=== PATIENT | male | born 1940 | race Caucasian/White ===

== ENCOUNTER 2018-09-29 06:27 | Inpatient (IN) | payer MEDICARE, OTHER ==
[2018-09-29 06:28] VITALS: BMI 26.6
[2018-09-29] MEDS ORDERED: Sodium Chloride 0.9% 1,000 ML IV STA ×2 (07:28→09:21)
--- NOTE | 2018-09-29 07:31 | ED PDOC ---
HPI: SOB/CHF/COPD Time Seen by Provider: 09/29/18 07:08 Chief Complaint (Nursing): Fever Chief Complaint (Provider): shortness of breath History Per: Family History/Exam Limitations: clinical condition (nonverbal s/p CVA) Current Symptoms Are (Timing): Still Present Additional Complaint(s): 78 year old male with past history of Parkinson's disease, hypertension, and CVA, arrives to the emergency department via ambulance with his for an evaluation of shortness of breath. History is limited as patient is nonverbal status post CVA. His states that the patient appeared to be short of breath this morning, thus, prompting visit. Patient is bed-bound at baseline with left- sided paralysis and decubitus ulcer that is currently treated at a wound clinic. Otherwise, no reports of cough or hemoptysis. Of note, patient's states that the patient has an unknown code and pending her son's call for any decisions. Additionally, patient has an indwelling kwan catheter in place. PCP: Dr. Fatuma Christina Past Medical History Reviewed: Historical Data, Nursing Documentation, Vital Signs Vital Signs: Last Vital Signs Temp 101.3 F H 09/29/18 06:39 Pulse 154 H 09/29/18 06:39 Resp 27 H 09/29/18 06:39 BP 83/47 L 09/29/18 06:39 Pulse Ox 93 L 09/29/18 06:39 - Medical History PMH: CVA (Left sided), HTN, Hyperlipidemia, Parkinson's Disease Denies: Chronic Kidney Disease - Family History Family History: States: Unknown Family Hx - Social History Current smoker - smoking cessation education provided: No Alcohol: None Drugs: Denies - Immunization History Hx Tetanus Toxoid Vaccination: No Hx Influenza Vaccination: No Hx Pneumococcal Vaccination: Yes - Home Medications Home Medications: Ambulatory Orders Medication Instructions Recorded Carbidopa/Levodopa 1 tab PO TID 04/16/16 [Carbidopa-Levodopa 25-100 Tab] Escitalopram [Lexapro] 10 mg PO DAILY 04/16/16 Ferrous Sulfate 1 tab PO BID 04/16/16 Metoprolol Succinate [Metoprolol 100 mg PO DAILY 04/16/16 Succinate Xl] Ranitidine HCl 150 mg PO BID 04/16/16 Atorvastatin [Lipitor] 20 mg PO DAILY 09/29/18 Clopidogrel Bisulfate [Plavix] 75 mg PO DAILY 09/29/18 Losartan/Hydrochlorothiazide 100 mg PO DAILY 09/29/18 [Losartan-Hctz 100-12.5 mg Tab] Vancomycin HCl 125 mg PO DAILY 09/29/18 - Allergies Allergies/Adverse Reactions: Allergies Allergy/AdvReac Type Severity Reaction Status Date / Time aspirin Allergy RASH Verified 09/29/18 06:39 Review of Systems ROS Statement: Except As Marked, All Systems Reviewed And Found Negative Constitutional: Positive for: Fever Respiratory: Positive for: Shortness of Breath. Negative for: Cough, Hemoptysis Skin: Positive for: Other (decubitus ulcer) Neurological: Positive for: Weakness (left-sided paralysis) Physical Exam - Reviewed Nursing Documentation Reviewed: Yes Vital Signs Reviewed: Yes - Physical Exam Appears: Positive for: No Acute Distress. Negative for: Well (chronically ill) Head Exam: Positive for: ATRAUMATIC, NORMAL INSPECTION, NORMOCEPHALIC Skin: Positive for: Warm, Dry Eye Exam: Positive for: Normal appearance, EOMI, PERRL ENT: Positive for: Other (dry mucous membranes) Neck: Positive for: Normal, Painless ROM, Supple Cardiovascular/Chest: Positive for: Tachycardia (but regular). Negative for: Regular Rate, Rhythm Respiratory: Positive for: Decreased Breath Sounds (coarse). Negative for: Respiratory Distress Pulses-Radial (L): 3+/4+ Pulses-Radial (R): 3+/4+ Gastrointestinal/Abdominal: Positive for: Normal Exam, Soft Back: Positive for: Other (large sacral unstageable pressure ulcer, approximately 30cm in diameter, without bleeding or discharge) Neurologic/Psych: Positive for: Motor/Sensory Deficits (left-sided paralysis), Facial Droop (left-sided), Other (bed-bound at baseline; easily arousable). Negative for: Alert (x2), Oriented (x3), Aphasia - Laboratory Results Result Diagrams: 09/29/18 07:30 09/29/18 07:30 - ECG O2 Sat by Pulse Oximetry: 93 (RA) Pulse Ox Interpretation: Normal - Critical Care Total Time (In Min): 60 Documented Critical Care: Time excludes all time spent performint seperately billable procedures Medical Decision Making Medical Decision Making: Initial Impression: Dyspnea; Fever Differential diagnosis: aspiration pneumonia; UTI; sepsis shock Initial Plan: * Labs * EKG * IV fluids * CXR * Blood/urine/wound culture Time: 734 --Code sepsis initiated. Vanc IV and Zosyn IV ordered. IVF 2 L IVF bolus 30cc/kg/ over 30 min was not given due to advanced age, unknown cardiac function, and since patient may wish comfort care. upon discussion with the there is no directive and she believes patient would prefer to be DNR /DNI but there is no final decision at this time. Patient is currently not hypotensive after IVF and there are no indications for central line. Time: 819 --UA reviewed: (+) blood and leukocytes. Time: 829 --Case discussed with Sammy Fitzgerald APN, who accepts patient for admission under [facility]. Bite Block Maker paged for ICU admission. Time: 846 --Dr. Sibley made aware of case and is agreeable to admission plan. -- Scribe Attestation: Documented by Kassandra Elder, acting as a scribe for Cecilia Cruz MD. Provider Scribe Attestation: All medical record entries made by the Scribe were at my direction and personally dictated by me. I have reviewed the chart and agree that the record accurately reflects my personal performance of the history, physical exam, medical decision making, and the department course for this patient. I have also personally directed, reviewed, and agree with the discharge instructions and disposition. Disposition - Clinical Impression Clinical Impression: Fever in adult, Decubital ulcer, Sepsis, UTI (urinary tract infection), Severe sepsis, Septic shock - Patient ED Disposition Is Patient to be Admitted: No Doctor Will See Patient In The: Office Counseled Patient/Family Regarding: Studies Performed, Diagnosis, Need For Followup - Disposition Disposition Time: 08:00 Condition: CRITICAL - Pt Status Changed To: Hospital Disposition Of: Inpatient - Admit Certification Admit to Inpatient:: After my assessment, the patient will require hospitalization for at least two midnights. This is because of the severity of symptoms shown, intensity of services needed, and/or the medical risk in this patient being treated as an outpatient. - POA Present On Arrival: Pressure Ulcer Core Measure Indicators: Code Sepsis
[2018-09-29 07:35] LABS: VENOUS BLOOD GAS BASE EXCESS -8.6 mmol/L (0.0-2.0); VENOUS BLOOD GAS PCO2 51 mmHg (40-60); VENOUS BLOOD GAS PO2 23 mm/Hg (30-55); VENOUS BLOOD PH 7.19 (7.32-7.43)
[2018-09-29] MEDS ORDERED: Piperacillin/Tazobact 3.375 GM in Sodium Chloride 0.9% 100 ML IVPB STA (07:36)
[2018-09-29] MEDS ORDERED: Vancomycin 1 g Inj ONE (07:40)
[2018-09-29] MEDS ORDERED: Piperacillin/Tazobact 3.375 gm Inj IVPB ONE (07:40)
[2018-09-29 07:57] LABS: ABG ALLEN TEST YES; ARTERIAL BLOOD GAS HCO3 17.2 mmol/L (21-28); ARTERIAL BLOOD GAS HEMOGLOBIN 9.6 g/dL (11.7-17.4); ARTERIAL BLOOD GAS O2 CAPACITY 13.3 mL/dL (16-24); ARTERIAL BLOOD GAS O2 CONTENT 13.2 ML/dL (15-23); ARTERIAL BLOOD GAS O2 SAT 99.2 % (95-98); ARTERIAL BLOOD GAS PCO2 17 mm/Hg (35-45); ARTERIAL BLOOD GAS PH 7.46 (7.35-7.45); ARTERIAL BLOOD GAS PO2 94 mm/Hg (80-100); ARTERIAL BLOOD GAS TCO2 12.6 mmol/L (22-28)
[2018-09-29 08:03] LABS: BASO % 0.2 % (0.0-2.0); EOS % 0.1 % (0.0-4.0); HEMOGLOBIN 9.7 g/dL (12.0-18.0); LYMPH # 0.5 K/uL (1.0-4.3); LYMPH % 8.9 % (20.0-40.0); MEAN CELL VOLUME 93.4 fl (80.0-94.0); MEAN CORPUSCULAR HEMOGLOBIN 28.8 pg (27.0-31.0); MEAN CORPUSCULAR HGB CONC 30.8 g/dL (33.0-37.0); MEAN PLATELET VOLUME 8.7 fl (7.2-11.7); MONO % 0.7 % (0.0-10.0); NEUT # 5.5 K/uL (1.8-7.0); NEUT % 90.1 % (50.0-75.0); PLATELET COUNT 347 K/uL (130-400); RBC 3.35 Mil/uL (4.40-5.90); RED CELL DISTRIBUTION WIDTH 16.1 % (11.5-14.5); WHITE BLOOD COUNT 6.2 K/uL (4.8-10.8)
[2018-09-29 08:07] LABS: INR 1.4; PROTHROMBIN TIME 15.7 Seconds (9.8-13.1)
[2018-09-29 08:09] LABS: ALB/GLOB RATIO 0.6 (1.0-2.1); ALBUMIN 2.4 g/dL (3.5-5.0); ALT/SGPT 574 U/L (21-72); BLOOD UREA NITROGEN 21 mg/dl (9-20); CALCIUM 8.2 mg/dL (8.4-10.2); GFR NON-AFRICAN AMERICAN > 60
[2018-09-29 08:10] LABS: PARTIAL THROMBOPLASTIN TIME 29.6 Seconds (25.6-37.1)
[2018-09-29 08:38] LABS: URINE BACTERIA MANY (<OCC); URINE BILIRUBIN NEGATIVE (NEGATIVE); URINE BLOOD MODERATE (NEGATIVE); URINE CLARITY TURBID (Clear); URINE COLOR AMBER (YELLOW); URINE GLUCOSE (UA) NEG (NEGATIVE); URINE LEUKOCYTE ESTERASE LARGE Leu/uL (Negative); URINE PROTEIN 30 mg/dL (NEGATIVE); URINE UROBILINOGEN 0.2-1.0 mg/dL (0.2-1.0)
[2018-09-29 08:47] LABS: AST/SGOT 2258 U/L (17-59)
[2018-09-29 10:59] LABS: BANDS 18 % (0-2); LYMPHOCYTE 15 % (20-50); MONOCYTE 1 % (0-10); MYELOCYTE 1 % (0-0); NEUTROPHIL 65 % (42-75); PLATELET ESTIMATE NORMAL (NORMAL); TOTAL CELLS COUNTED 100
[2018-09-29 11:00] LABS: ANISOCYTOSIS SLIGHT; GIANT PLATELETS PRESENT; HYPOCHROMIC SLIGHT; PLATELET CLUMPS PRESENT; POLYCHROMIC SLIGHT; TOXIC GRANULATION PRESENT
--- NOTE | 2018-09-29 11:06 | CP.PCM.HP ---
History of Present Illness - History of Present Illness History of Present Illness: pt admitted for sepsis/septic shock. not able to provide hx, at bedside providing all info. bw noted. pt w/ sacral decub stage 3-4. has permenant kwan in place left hemiparesis from old cva consults and c/s pending. Present on Admission - Present on Admission Any Indicators Present on Admission: Yes Decubitus Ulcer Location: sacrum Decubitus Ulcer Stage: III Review of Systems - Review of Systems Systems not reviewed;Unavailable: Dementia - Constitutional Constitutional: As Per HPI, Fever - Cardiovascular Cardiovascular: As Per HPI, Rapid Heart Rate Past Patient History - Past Medical History & Family History Past Medical History?: Yes - Past Social History Alcohol: None Drugs: Denies - CARDIAC Hx Hypertension: Yes - PULMONARY Hx Respiratory Disorders: No - NEUROLOGICAL Hx Parkinson's Disease: Yes - HEENT Hx HEENT Problems: No - RENAL Hx Chronic Kidney Disease: No - ENDOCRINE/METABOLIC Hx Endocrine Disorders: No - HEMATOLOGICAL/ONCOLOGICAL Hx Blood Disorders: No - INTEGUMENTARY Hx Dermatological Problems: No - MUSCULOSKELETAL/RHEUMATOLOGICAL Hx Musculoskeletal Disorders: Yes - GASTROINTESTINAL Hx Gastrointestinal Disorders: No - GENITOURINARY/GYNECOLOGICAL Hx Incontinence: Yes - PSYCHIATRIC Hx Substance Use: No - SURGICAL HISTORY Hx Surgeries: Yes Hx Herniorrhaphy: Yes (bilateral) - ANESTHESIA Hx Anesthesia: Yes Hx Anesthesia Reactions: No Hx Malignant Hyperthermia: No Meds Allergies/Adverse Reactions: Allergies Allergy/AdvReac Type Severity Reaction Status Date / Time aspirin Allergy RASH Verified 09/29/18 06:39 Physical Exam - Constitutional Appears: No Acute Distress, Chronically Ill - Head Exam Head Exam: ATRAUMATIC, NORMAL INSPECTION, NORMOCEPHALIC - Eye Exam Eye Exam: EOMI, Normal appearance, PERRL Pupil Exam: NORMAL ACCOMODATION, PERRL - ENT Exam ENT Exam: Mucous Membranes Moist, Normal Exam - Neck Exam Neck exam: Positive for: Normal Inspection - Respiratory Exam Respiratory Exam: Clear to Auscultation Bilateral, NORMAL BREATHING PATTERN - Cardiovascular Exam Cardiovascular Exam: Tachycardia, REGULAR RHYTHM, RRR, +S1, +S2 - GI/Abdominal Exam GI & Abdominal Exam: Normal Bowel Sounds, Soft. absent: Tenderness - Extremities Exam Extremities exam: Positive for: full ROM, normal capillary refill, normal inspection, pedal pulses present - Back Exam Back exam: NORMAL INSPECTION - Neurological Exam Neurological exam: Abnormal Gait, CN II-XII Intact, Reflexes Normal - Psychiatric Exam Psychiatric exam: Normal Affect, Normal Mood - Skin Skin Exam: Dry, Intact, Normal Color, Warm Results - Vital Signs Recent Vital Signs: Last Vital Signs Temp 99.9 F H 09/29/18 10:33 Pulse 106 H 09/29/18 10:33 Resp 19 09/29/18 10:33 BP 83/58 L 09/29/18 10:33 Pulse Ox 100 09/29/18 10:33 - Labs Result Diagrams: 09/30/18 05:00 09/30/18 05:00 Labs: Laboratory Results - last 24 hr 09/29/18 09/29/18 09/29/18 07:27 07:28 07:30 WBC 6.2 RBC 3.35 L Hgb 9.7 L Hct 31.3 L MCV 93.4 MCH 28.8 MCHC 30.8 L RDW 16.1 H Plt Count 347 MPV 8.7 Neut % (Auto) 90.1 H Lymph % (Auto) 8.9 L Morrill % (Auto) 0.7 Eos % (Auto) 0.1 Baso % (Auto) 0.2 Neut # (Auto) 5.5 Lymph # (Auto) 0.5 L [place] # (Auto) 0.0 Eos # (Auto) 0.0 Baso # (Auto) 0.0 Neutrophils % (Manual) 65 Band Neutrophils % 18 H* Lymphocytes % (Manual) 15 L Monocytes % (Manual) 1 Myelocytes % 1 H Toxic Granulation Present Platelet Estimate Normal Plt Clumps, EDTA Present Giant Platelets Present Polychromasia Slight Hypochromasia (manual) Slight Anisocytosis (manual) Slight PT INR APTT pCO2 17 L* pO2 94 23 L HCO3 17.2 L ABG pH 7.46 H ABG Total CO2 12.6 L ABG O2 Saturation 99.2 H ABG O2 Content 13.2 L ABG Base Excess -9.9 L ABG Hemoglobin 9.6 L ABG Carboxyhemoglobin 0.6 POC ABG HHb (Measured) 0.8 ABG Methemoglobin 2.2 ABG O2 Capacity 13.3 L Flo Test Yes VBG pH 7.19 L* VBG pCO2 51 VBG HCO3 16.7 VBG Total CO2 21.1 L VBG O2 Sat (Calc) 27.6 L VBG Base Excess -8.6 L VBG Potassium 4.2 A-a O2 Difference 99.0 Hgb O2 Saturation 96.4 Sodium 145.0 Chloride 110.0 H Glucose 97 Lactate 10.5 H* FiO2 30.0 21.0 Crit Value Called To Dr amish almonte Crit Value Called By 15 15 Crit Value Read Back Y Y Blood Gas Notified Time 756 732 Potassium Carbon Dioxide Anion Gap BUN Creatinine Est GFR ( Amer) Est GFR (Non-Af Amer) Random Glucose Calcium Phosphorus Magnesium Total Bilirubin AST ALT Alkaline Phosphatase Total Protein Albumin Globulin Albumin/Globulin Ratio Venous Blood Potassium 4.2 Urine Color Urine Clarity Urine pH Ur Specific [place] Urine Protein Urine Glucose (UA) Urine Ketones Urine Blood Urine Nitrate Urine Bilirubin Urine Urobilinogen Ur Leukocyte Esterase Urine RBC (Auto) Urine Microscopic WBC Urine Bacteria Influenza Typ A,B (EIA) 09/29/18 09/29/18 09/29/18 07:30 07:30 08:20 WBC RBC Hgb Hct MCV MCH MCHC RDW Plt Count MPV Neut % (Auto) Lymph % (Auto) [place] % (Auto) Eos % (Auto) Baso % (Auto) Neut # (Auto) Lymph # (Auto) [place] # (Auto) Eos # (Auto) Baso # (Auto) Neutrophils % (Manual) Band Neutrophils % Lymphocytes % (Manual) Monocytes % (Manual) Myelocytes % Toxic Granulation Platelet Estimate Plt Clumps, EDTA Giant Platelets Polychromasia Hypochromasia (manual) Anisocytosis (manual) PT 15.7 H INR 1.4 APTT 29.6 pCO2 pO2 HCO3 ABG pH ABG Total CO2 ABG O2 Saturation ABG O2 Content ABG Base Excess ABG Hemoglobin ABG Carboxyhemoglobin POC ABG HHb (Measured) ABG Methemoglobin ABG O2 Capacity Flo Test VBG pH VBG pCO2 VBG HCO3 VBG Total CO2 VBG O2 Sat (Calc) VBG Base Excess VBG Potassium A-a O2 Difference Hgb O2 Saturation Sodium 143 Chloride 113 H Glucose Lactate FiO2 Crit Value Called To Crit Value Called By Crit Value Read Back Blood Gas Notified Time Potassium 4.1 Carbon Dioxide 18 L Anion Gap 16 BUN 21 H Creatinine 1.1 Est GFR ( Amer) > 60 Est GFR (Non-Af Amer) > 60 Random Glucose 93 Calcium 8.2 L Phosphorus 3.3 Magnesium 2.2 Total Bilirubin 0.6 AST 2258 H ALT 574 H Alkaline Phosphatase 346 H Total Protein 6.5 Albumin 2.4 L Globulin 4.1 H Albumin/Globulin Ratio 0.6 L Venous Blood Potassium Urine Color Karen Urine Clarity Turbid Urine pH 7.0 Ur Specific [place] 1.017 Urine Protein 30 Urine Glucose (UA) Neg Urine Ketones Negative Urine Blood Moderate Urine Nitrate Negative Urine Bilirubin Negative Urine Urobilinogen 0.2-1.0 Ur Leukocyte Esterase Large Urine RBC (Auto) 240 H Urine Microscopic WBC 1728 H Urine Bacteria Many H Influenza Typ A,B (EIA) 09/29/18 08:20 WBC RBC Hgb Hct MCV MCH MCHC RDW Plt Count MPV Neut % (Auto) Lymph % (Auto) [place] % (Auto) Eos % (Auto) Baso % (Auto) Neut # (Auto) Lymph # (Auto) [place] # (Auto) Eos # (Auto) Baso # (Auto) Neutrophils % (Manual) Band Neutrophils % Lymphocytes % (Manual) Monocytes % (Manual) Myelocytes % Toxic Granulation Platelet Estimate Plt Clumps, EDTA Giant Platelets Polychromasia Hypochromasia (manual) Anisocytosis (manual) PT INR APTT pCO2 pO2 HCO3 ABG pH ABG Total CO2 ABG O2 Saturation ABG O2 Content ABG Base Excess ABG Hemoglobin ABG Carboxyhemoglobin POC ABG HHb (Measured) ABG Methemoglobin ABG O2 Capacity Flo Test VBG pH VBG pCO2 VBG HCO3 VBG Total CO2 VBG O2 Sat (Calc) VBG Base Excess VBG Potassium A-a O2 Difference Hgb O2 Saturation Sodium Chloride Glucose Lactate FiO2 Crit Value Called To Crit Value Called By Crit Value Read Back Blood Gas Notified Time Potassium Carbon Dioxide Anion Gap BUN Creatinine Est GFR ( Amer) Est GFR (Non-Af Amer) Random Glucose Calcium Phosphorus Magnesium Total Bilirubin AST ALT Alkaline Phosphatase Total Protein Albumin Globulin Albumin/Globulin Ratio Venous Blood Potassium Urine Color Urine Clarity Urine pH Ur Specific [place] Urine Protein Urine Glucose (UA) Urine Ketones Urine Blood Urine Nitrate Urine Bilirubin Urine Urobilinogen Ur Leukocyte Esterase Urine RBC (Auto) Urine Microscopic WBC Urine Bacteria Influenza Typ A,B (EIA) Negative for flu a/b Assessment & Plan (1) Decubital ulcer Assessment and Plan: surgical debridement 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 urine source zosyn, vanco ID procalcitonin vbg Status: Acute (3) DVT prophylaxis Assessment and Plan: scd nad ae hose heparin Status: Acute (4) CVA (cerebral vascular accident) Assessment and Plan: old. deficit noted pt/ot Status: Acute (5) Parkinson disease Assessment and Plan: cont homemeds Status: Acute (6) Septic shock Assessment and Plan: icu care pressors prn id fluid resus Status: Acute Priority: High (7) UTI (urinary tract infection) Assessment and Plan: zosyn vanco change kwan follow c/s Status: Acute Priority: High Decision To Admit - Pt Status Changed To: Hospital Disposition Of: Inpatient - Admit Certification Admit to Inpatient:: After my assessment, the patient will require hospitalization for at least two midnights. This is because of the severity of symptoms shown, intensity of services needed, and/or the medical risk in this patient being treated as an outpatient. - . Bed Request Type: Intensive Care Admitting Physician: Chris Wiggins
--- NOTE | 2018-09-29 13:33 | CP.PCM.CON ---
History of Present Illness - History of Present Illness History of Present Illness: General Surgery Consult Note for Dr. Downey This is a 78M who is completely dependent he presented from home due to change in mental status, he was found to have a recently debrided sacral ulcer and laboratory evidence of a UTI, with bandemia, and a lactate of 10, along with hypotension. OUr service was consulted for central line placement for pressor support. Patient is averbal history was obtained from other providers. PMH: CVS, HTN, HLD, Parkinsons PSH: Sacral wound debridment (possible others unknown) All: ASA Review of Systems - Review of Systems Systems not reviewed;Unavailable: Acuity of Condition, Altered Mental Status Past Patient History - Past Medical History & Family History Past Medical History?: Yes - Past Social History Alcohol: None Drugs: Denies - CARDIAC Hx Hypertension: Yes - PULMONARY Hx Respiratory Disorders: No - NEUROLOGICAL Hx Parkinson's Disease: Yes - HEENT Hx HEENT Problems: No - RENAL Hx Chronic Kidney Disease: No - ENDOCRINE/METABOLIC Hx Endocrine Disorders: No - HEMATOLOGICAL/ONCOLOGICAL Hx Blood Disorders: No - INTEGUMENTARY Hx Dermatological Problems: No - MUSCULOSKELETAL/RHEUMATOLOGICAL Hx Musculoskeletal Disorders: Yes - GASTROINTESTINAL Hx Gastrointestinal Disorders: No - GENITOURINARY/GYNECOLOGICAL Hx Incontinence: Yes - PSYCHIATRIC Hx Substance Use: No - SURGICAL HISTORY Hx Surgeries: Yes Hx Herniorrhaphy: Yes (bilateral) - ANESTHESIA Hx Anesthesia: Yes Hx Anesthesia Reactions: No Hx Malignant Hyperthermia: No Meds Allergies/Adverse Reactions: Allergies Allergy/AdvReac Type Severity Reaction Status Date / Time aspirin Allergy RASH Verified 09/29/18 06:39 - Medications Medications: Current Medications Atorvastatin Calcium (Lipitor) 20 mg PO DAILY [facility] Carbidopa/Levodopa (Sinemet) 1 tab PO TID [facility] Clopidogrel Bisulfate (Plavix) 75 mg PO DAILY [facility] Escitalopram Oxalate (Lexapro) 10 mg PO DAILY [facility] Famotidine (Pepcid) 20 mg PO BID SAI Ferrous Sulfate (Feosol) 325 mg PO BID [facility] Physical Exam - Constitutional Appears: Cachectic, Chronically Ill - Neck Exam Neck exam: Positive for: Normal Inspection - Respiratory Exam Respiratory Exam: NORMAL BREATHING PATTERN - Cardiovascular Exam Cardiovascular Exam: Tachycardia Results - Vital Signs Recent Vital Signs: Last Vital Signs Temp 99.9 F H 09/29/18 10:33 Pulse 106 H 09/29/18 10:33 Resp 19 09/29/18 10:33 BP 83/58 L 09/29/18 10:33 Pulse Ox 93 L 09/29/18 12:01 - Labs Result Diagrams: 09/29/18 07:30 09/29/18 07:30 Labs: Laboratory Results - last 24 hr 09/29/18 09/29/18 09/29/18 07:27 07:28 07:30 WBC 6.2 RBC 3.35 L Hgb 9.7 L Hct 31.3 L MCV 93.4 MCH 28.8 MCHC 30.8 L RDW 16.1 H Plt Count 347 MPV 8.7 Neut % (Auto) 90.1 H Lymph % (Auto) 8.9 L [place] % (Auto) 0.7 Eos % (Auto) 0.1 Baso % (Auto) 0.2 Neut # (Auto) 5.5 Lymph # (Auto) 0.5 L [place] # (Auto) 0.0 Eos # (Auto) 0.0 Baso # (Auto) 0.0 Neutrophils % (Manual) 65 Band Neutrophils % 18 H* Lymphocytes % (Manual) 15 L Monocytes % (Manual) 1 Myelocytes % 1 H Toxic Granulation Present Platelet Estimate Normal Plt Clumps, EDTA Present Giant Platelets Present Polychromasia Slight Hypochromasia (manual) Slight Anisocytosis (manual) Slight PT INR APTT pCO2 17 L* pO2 94 23 L HCO3 17.2 L ABG pH 7.46 H ABG Total CO2 12.6 L ABG O2 Saturation 99.2 H ABG O2 Content 13.2 L ABG Base Excess -9.9 L ABG Hemoglobin 9.6 L ABG Carboxyhemoglobin 0.6 POC ABG HHb (Measured) 0.8 ABG Methemoglobin 2.2 ABG O2 Capacity 13.3 L Flo Test Yes VBG pH 7.19 L* VBG pCO2 51 VBG HCO3 16.7 VBG Total CO2 21.1 L VBG O2 Sat (Calc) 27.6 L VBG Base Excess -8.6 L VBG Potassium 4.2 A-a O2 Difference 99.0 Hgb O2 Saturation 96.4 Sodium 145.0 Chloride 110.0 H Glucose 97 Lactate 10.5 H* FiO2 30.0 21.0 Crit Value Called To Dr amish almonte Crit Value Called By 15 15 Crit Value Read Back Y Y Blood Gas Notified Time 756 732 Potassium Carbon Dioxide Anion Gap BUN Creatinine Est GFR ( Amer) Est GFR (Non-Af Amer) Random Glucose Calcium Phosphorus Magnesium Total Bilirubin AST ALT Alkaline Phosphatase Total Protein Albumin Globulin Albumin/Globulin Ratio Venous Blood Potassium 4.2 Urine Color Urine Clarity Urine pH Ur Specific [place] Urine Protein Urine Glucose (UA) Urine Ketones Urine Blood Urine Nitrate Urine Bilirubin Urine Urobilinogen Ur Leukocyte Esterase Urine RBC (Auto) Urine Microscopic WBC Urine Bacteria Influenza Typ A,B (EIA) 09/29/18 09/29/18 09/29/18 07:30 07:30 08:20 WBC RBC Hgb Hct MCV MCH MCHC RDW Plt Count MPV Neut % (Auto) Lymph % (Auto) [place] % (Auto) Eos % (Auto) Baso % (Auto) Neut # (Auto) Lymph # (Auto) [place] # (Auto) Eos # (Auto) Baso # (Auto) Neutrophils % (Manual) Band Neutrophils % Lymphocytes % (Manual) Monocytes % (Manual) Myelocytes % Toxic Granulation Platelet Estimate Plt Clumps, EDTA Giant Platelets Polychromasia Hypochromasia (manual) Anisocytosis (manual) PT 15.7 H INR 1.4 APTT 29.6 pCO2 pO2 HCO3 ABG pH ABG Total CO2 ABG O2 Saturation ABG O2 Content ABG Base Excess ABG Hemoglobin ABG Carboxyhemoglobin POC ABG HHb (Measured) ABG Methemoglobin ABG O2 Capacity Flo Test VBG pH VBG pCO2 VBG HCO3 VBG Total CO2 VBG O2 Sat (Calc) VBG Base Excess VBG Potassium A-a O2 Difference Hgb O2 Saturation Sodium 143 Chloride 113 H Glucose Lactate FiO2 Crit Value Called To Crit Value Called By Crit Value Read Back Blood Gas Notified Time Potassium 4.1 Carbon Dioxide 18 L Anion Gap 16 BUN 21 H Creatinine 1.1 Est GFR ( Amer) > 60 Est GFR (Non-Af Amer) > 60 Random Glucose 93 Calcium 8.2 L Phosphorus 3.3 Magnesium 2.2 Total Bilirubin 0.6 AST 2258 H ALT 574 H Alkaline Phosphatase 346 H Total Protein 6.5 Albumin 2.4 L Globulin 4.1 H Albumin/Globulin Ratio 0.6 L Venous Blood Potassium Urine Color Karen Urine Clarity Turbid Urine pH 7.0 Ur Specific [place] 1.017 Urine Protein 30 Urine Glucose (UA) Neg Urine Ketones Negative Urine Blood Moderate Urine Nitrate Negative Urine Bilirubin Negative Urine Urobilinogen 0.2-1.0 Ur Leukocyte Esterase Large Urine RBC (Auto) 240 H Urine Microscopic WBC 1728 H Urine Bacteria Many H Influenza Typ A,B (EIA) 09/29/18 08:20 WBC RBC Hgb Hct MCV MCH MCHC RDW Plt Count MPV Neut % (Auto) Lymph % (Auto) [place] % (Auto) Eos % (Auto) Baso % (Auto) Neut # (Auto) Lymph # (Auto) [place] # (Auto) Eos # (Auto) Baso # (Auto) Neutrophils % (Manual) Band Neutrophils % Lymphocytes % (Manual) Monocytes % (Manual) Myelocytes % Toxic Granulation Platelet Estimate Plt Clumps, EDTA Giant Platelets Polychromasia Hypochromasia (manual) Anisocytosis (manual) PT INR APTT pCO2 pO2 HCO3 ABG pH ABG Total CO2 ABG O2 Saturation ABG O2 Content ABG Base Excess ABG Hemoglobin ABG Carboxyhemoglobin POC ABG HHb (Measured) ABG Methemoglobin ABG O2 Capacity Flo Test VBG pH VBG pCO2 VBG HCO3 VBG Total CO2 VBG O2 Sat (Calc) VBG Base Excess VBG Potassium A-a O2 Difference Hgb O2 Saturation Sodium Chloride Glucose Lactate FiO2 Crit Value Called To Crit Value Called By Crit Value Read Back Blood Gas Notified Time Potassium Carbon Dioxide Anion Gap BUN Creatinine Est GFR ( Amer) Est GFR (Non-Af Amer) Random Glucose Calcium Phosphorus Magnesium Total Bilirubin AST ALT Alkaline Phosphatase Total Protein Albumin Globulin Albumin/Globulin Ratio Venous Blood Potassium Urine Color Urine Clarity Urine pH Ur Specific [place] Urine Protein Urine Glucose (UA) Urine Ketones Urine Blood Urine Nitrate Urine Bilirubin Urine Urobilinogen Ur Leukocyte Esterase Urine RBC (Auto) Urine Microscopic WBC Urine Bacteria Influenza Typ A,B (EIA) Negative for flu a/b Assessment & Plan - Assessment and Plan (Free Text) Assessment: 78M in septic shock Bedside central line placement Discussed with Dr. Downey Central Line Placement - Central Line Placement Central Line Placement: Left: Internal Jugular The Area Was Thoroughly Prepared With: Chlorhexidine Area Was Locally Anesthetized With: Lidocaine 1% Procedure: Triple Lumen
--- NOTE | 2018-09-29 13:37 | PCM.PROC ---
Procedures Attestation:: I certify that I have explained the specified Operation(s) or Procedure(s), risks, benefits and reasonable alternatives to the Patient and/or other person responsible. The opportunity was given to ask questions and all questions answered - Central Line Placement Left Internal Jugular Triple Lumen Catheter Aseptic technique was employed throughout the procedure: Hand Hygiene done prior to procedure, Full sterile barriers (mask, hair cover, sterile gown, sterile g loves), Chloraprep Antiseptic: 30 second prep for IJ or SC sites Central Line Prep: Chlorhexidine-Alcohol Combination Local Anesthesia Used: Lidocaine 1% Ultrasound Used for Placement: Yes Central Line Lumen Inserted: triple Central Line Length: 20 cm Post Procedure: Sutured in Place, Good Blood Return, All Ports Aspirated, Flushed, Capped, Sterile Dressing Applied Secured by: Suture Post Procedure X-Ray: Yes Patient Tolerated Procedure: Well
[2018-09-29 13:38] LABS: VENOUS BLOOD GAS BASE EXCESS -5.1 mmol/L (0.0-2.0); VENOUS BLOOD GAS PCO2 21 mmHg (40-60); VENOUS BLOOD GAS PO2 43 mm/Hg (30-55); VENOUS BLOOD PH 7.49 (7.32-7.43)
--- NOTE | 2018-09-29 15:08 | RAD ---
Date of service: 09/29/2018 HISTORY: Sepsis Patient COMPARISON: Chest radiographs 01/18/2010. FINDINGS: LUNGS: Patient remains rotated significantly toward the right. No interval consolidation bilaterally. PLEURA: No significant pleural effusion identified, no pneumothorax apparent. CARDIOVASCULAR: No aortic atherosclerotic calcification present. Normal cardiac size. No pulmonary vascular congestion. OSSEOUS STRUCTURES: No significant abnormalities. VISUALIZED UPPER ABDOMEN: Stable elevated left hemidiaphragm noted. OTHER FINDINGS: None. IMPRESSION: No interval acute cardiopulmonary disease appreciated. Stable elevated left hemidiaphragm.
--- NOTE | 2018-09-29 16:35 | CARD ---
APPROVED REPORT Date of service: 09/29/2018 EKG Measurement Heart [id number] <Conclusion> Sinus tachycardia with short MS with premature supraventricular complexes Nonspecific ST and T wave abnormality Abnormal ECG
--- NOTE | 2018-09-29 16:41 | RAD ---
Date of service: 09/29/2018 HISTORY: r/o pneumothorax post central line insertion COMPARISON: September 29, 2018 Time of the most recent examination: 08:04. FINDINGS: LUNGS: No active pulmonary disease. PLEURA: No significant pleural effusion identified, no pneumothorax apparent. CARDIOVASCULAR: No atherosclerotic calcification present Satisfactory position of recently placed central line inserted via left internal jugular approach. Catheter tip in the SVC. OSSEOUS STRUCTURES: No significant abnormalities. VISUALIZED UPPER ABDOMEN: Normal. OTHER FINDINGS: None. IMPRESSION: Satisfactory position of recently placed central line. No pneumothorax.
--- NOTE | 2018-09-29 17:22 | CP.PCM.CON ---
History of Present Illness - History of Present Illness History of Present Illness: 78 year old male with past history of Parkinson's disease, hypertension, and CVA admitted to ICU with sepsis and septic shock from infected wounds at home Patient is bed-bound at baseline with left-sided paralysis and decubitus ulcer that is currently treated at a wound clinic. . Additionally, patient has an indwelling kwan catheter in place. - Medical History PMH: CVA (Left sided), HTN, Hyperlipidemia, Parkinson's Disease Denies: Chronic Kidney Disease Review of Systems - Review of Systems All systems: reviewed and no additional remarkable complaints except - Constitutional Constitutional: As Per HPI - EENT Eyes: absent: As Per HPI, Blind Spots, Blurred Vision, Change in Vision, Decreased Night Vision, Diplopia, Discharge, Dry Eye, Exophthalmos, Floaters, Irritation, Itchy Eyes, Loss of Peripheral Vision, Pain, Photophobia, Requires Corrective Lenses, Sees Flashes, Spots in Vision, Tunnel Vision, Other Visual Disturbances, Loss of Vision, Other Ears: absent: As Per HPI, Decreased Hearing, Ear Discharge, Ear Pain, Tinnitus, Abnormal Hearing, Disequilibrium, Dizziness, Other Nose/Mouth/Throat: absent: As Per HPI, Epistaxis, Nasal Congestion, Nasal Discharge, Nasal Obstruction, Nasal Trauma, Nose Pain, Post Nasal Drip, Sinus Pain, Sinus Pressure, Bleeding Gums, Change in Voice, Dental Pain, Dry Mouth, Dysphagia, Halitosis, Hoarsness, Lip Swelling, Mouth Lesions, Mouth Pain, Odynophagia, Sore Throat, Throat Swelling, Tongue Swelling, Facial Pain, Neck Pain, Neck Mass, Other - Cardiovascular Cardiovascular: As Per HPI - Respiratory Respiratory: As Per HPI - Genitourinary Genitourinary: absent: As Per HPI, Change in Urinary Stream, Difficulty Urinating, Dysuria, Flank Pain, Hematuria, Pyuria, Nocturia, Urinary Incontinence, Urinary Frequency, Urinary Hesitance, Urinary Urgency, Voiding Freq/Small Amts, Freq UTI, Hx Renal/Bladder Calculi, Hx /Renal Surgery, Bladder Distension, Other - Musculoskeletal Musculoskeletal: As Per HPI - Integumentary Integumentary: Skin Pain, Wounds - Neurological Neurological: As Per HPI - Psychiatric Psychiatric: absent: As Per HPI, Abnormal Sleep Pattern, Anhedonia, Anxiety, Auditory Hallucinations, Behavioral Changes, Change in Appetite, Change in Libido, Confusion, Depression, Difficulty Concentrating, Hallucinations, Homicidal Ideation, Hopelessness, Irritability, Memory Loss, Mood Swings, Panic Attacks, Paranoia, Suicidal Ideation, Visual Hallucinations, Tactile Hallucinations, Other - Endocrine Endocrine: absent: As Per HPI, Change in Body Appearance, Change in Libido, Cold Intolorance, Deepening of Voice, Excessive Sweating, Fatigue, Flushing, Heat Intolorance, Increase in Ring/Shoe/Hat Size, Palpitations, Polydipsia, Polyphagia, Polyuria, Other - Hematologic/Lymphatic Hematologic: absent: As Per HPI, Easy Bleeding, Easy Bruising, Lymphadenopathy, Other Past Patient History - Past Medical History & Family History Past Medical History?: Yes - Past Social History Alcohol: None Drugs: Denies - CARDIAC Hx Hypertension: Yes - PULMONARY Hx Respiratory Disorders: No - NEUROLOGICAL Hx Parkinson's Disease: Yes - HEENT Hx HEENT Problems: No - RENAL Hx Chronic Kidney Disease: No - ENDOCRINE/METABOLIC Hx Endocrine Disorders: No - HEMATOLOGICAL/ONCOLOGICAL Hx Blood Disorders: No - INTEGUMENTARY Hx Dermatological Problems: No - MUSCULOSKELETAL/RHEUMATOLOGICAL Hx Musculoskeletal Disorders: Yes - GASTROINTESTINAL Hx Gastrointestinal Disorders: No - GENITOURINARY/GYNECOLOGICAL Hx Incontinence: Yes - PSYCHIATRIC Hx Substance Use: No - SURGICAL HISTORY Hx Surgeries: Yes Hx Herniorrhaphy: Yes (bilateral) - ANESTHESIA Hx Anesthesia: Yes Hx Anesthesia Reactions: No Hx Malignant Hyperthermia: No Meds Allergies/Adverse Reactions: Allergies Allergy/AdvReac Type Severity Reaction Status Date / Time aspirin Allergy RASH Verified 09/29/18 06:39 - Medications Medications: Current Medications Atorvastatin Calcium (Lipitor) 20 mg PO DAILY [facility] Carbidopa/Levodopa (Sinemet) 1 tab PO TID [facility] Clopidogrel Bisulfate (Plavix) 75 mg PO DAILY [facility] Escitalopram Oxalate (Lexapro) 10 mg PO DAILY [facility] Famotidine (Pepcid) 20 mg PO BID [facility] Ferrous Sulfate (Feosol) 325 mg PO BID [facility] Physical Exam - Constitutional Appears: Toxic, Cachectic, Chronically Ill - Head Exam Head Exam: NORMOCEPHALIC - Eye Exam Eye Exam: absent: Scleral icterus - ENT Exam ENT Exam: Mucous Membranes Dry, Normal External Ear Exam - Neck Exam Neck exam: Negative for: Lymphadenopathy - Respiratory Exam Respiratory Exam: Decreased Breath Sounds, Prolonged Expiratory Phase, Rhonchi - Cardiovascular Exam Cardiovascular Exam: Tachycardia, REGULAR RHYTHM, +S1, +S2 - GI/Abdominal Exam GI & Abdominal Exam: Diminished Bowel Sounds, Soft. absent: Tenderness - Rectal Exam Rectal Exam: Deferred - Exam Exam: NORMAL INSPECTION - Extremities Exam Extremities exam: Positive for: pedal pulses present. Negative for: calf tenderness, pedal edema, tenderness - Back Exam Back exam: absent: CVA tenderness (L), CVA tenderness (R) - Neurological Exam Neurological exam: Altered, CN II-XII Intact, Motor Sensory Deficit Additional comments: left weakness upper/lower - Psychiatric Exam Psychiatric exam: Depressed - Skin Skin Exam: Dry Additional comments: + large sacral wound 30 cm unstageable Results - Vital Signs Recent Vital Signs: Last Vital Signs Temp 99.1 F 09/29/18 14:33 Pulse 88 09/29/18 14:33 Resp 18 09/29/18 14:33 BP 100/68 09/29/18 14:33 Pulse Ox 100 09/29/18 14:33 - Labs Result Diagrams: 09/29/18 07:30 09/29/18 07:30 Labs: Laboratory Results - last 24 hr 09/29/18 09/29/18 09/29/18 07:27 07:28 07:30 WBC 6.2 RBC 3.35 L Hgb 9.7 L Hct 31.3 L MCV 93.4 MCH 28.8 MCHC 30.8 L RDW 16.1 H Plt Count 347 MPV 8.7 Neut % (Auto) 90.1 H Lymph % (Auto) 8.9 L [place] % (Auto) 0.7 Eos % (Auto) 0.1 Baso % (Auto) 0.2 Neut # (Auto) 5.5 Lymph # (Auto) 0.5 L [place] # (Auto) 0.0 Eos # (Auto) 0.0 Baso # (Auto) 0.0 Neutrophils % (Manual) 65 Band Neutrophils % 18 H* Lymphocytes % (Manual) 15 L Monocytes % (Manual) 1 Myelocytes % 1 H Toxic Granulation Present Platelet Estimate Normal Plt Clumps, EDTA Present Giant Platelets Present Polychromasia Slight Hypochromasia (manual) Slight Anisocytosis (manual) Slight PT INR APTT pCO2 17 L* pO2 94 23 L HCO3 17.2 L ABG pH 7.46 H ABG Total CO2 12.6 L ABG O2 Saturation 99.2 H ABG O2 Content 13.2 L ABG Base Excess -9.9 L ABG Hemoglobin 9.6 L ABG Carboxyhemoglobin 0.6 POC ABG HHb (Measured) 0.8 ABG Methemoglobin 2.2 ABG O2 Capacity 13.3 L Flo Test Yes VBG pH 7.19 L* VBG pCO2 51 VBG HCO3 16.7 VBG Total CO2 21.1 L VBG O2 Sat (Calc) 27.6 L VBG Base Excess -8.6 L VBG Potassium 4.2 A-a O2 Difference 99.0 Hgb O2 Saturation 96.4 Sodium 145.0 Chloride 110.0 H Glucose 97 Lactate 10.5 H* FiO2 30.0 21.0 Blood Gas Comments Crit Value Called To Dr amish almonte Crit Value Called By 15 15 Crit Value Read Back Y Y Blood Gas Notified Time 496 [id number] Potassium Carbon Dioxide Anion Gap BUN Creatinine Est GFR ( Amer) Est GFR (Non-Af Amer) Random Glucose Calcium Phosphorus Magnesium Total Bilirubin AST ALT Alkaline Phosphatase Total Protein Albumin Globulin Albumin/Globulin Ratio Venous Blood Potassium 4.2 Urine Color Urine Clarity Urine pH Ur Specific Valier Urine Protein Urine Glucose (UA) Urine Ketones Urine Blood Urine Nitrate Urine Bilirubin Urine Urobilinogen Ur Leukocyte Esterase Urine RBC (Auto) Urine Microscopic WBC Urine Bacteria Influenza Typ A,B (EIA) 09/29/18 09/29/18 09/29/18 07:30 07:30 08:20 WBC RBC Hgb Hct MCV MCH MCHC RDW Plt Count MPV Neut % (Auto) Lymph % (Auto) [place] % (Auto) Eos % (Auto) Baso % (Auto) Neut # (Auto) Lymph # (Auto) [place] # (Auto) Eos # (Auto) Baso # (Auto) Neutrophils % (Manual) Band Neutrophils % Lymphocytes % (Manual) Monocytes % (Manual) Myelocytes % Toxic Granulation Platelet Estimate Plt Clumps, EDTA Giant Platelets Polychromasia Hypochromasia (manual) Anisocytosis (manual) PT 15.7 H INR 1.4 APTT 29.6 pCO2 pO2 HCO3 ABG pH ABG Total CO2 ABG O2 Saturation ABG O2 Content ABG Base Excess ABG Hemoglobin ABG Carboxyhemoglobin POC ABG HHb (Measured) ABG Methemoglobin ABG O2 Capacity Flo Test VBG pH VBG pCO2 VBG HCO3 VBG Total CO2 VBG O2 Sat (Calc) VBG Base Excess VBG Potassium A-a O2 Difference Hgb O2 Saturation Sodium 143 Chloride 113 H Glucose Lactate FiO2 Blood Gas Comments Crit Value Called To Crit Value Called By Crit Value Read Back Blood Gas Notified Time Potassium 4.1 Carbon Dioxide 18 L Anion Gap 16 BUN 21 H Creatinine 1.1 Est GFR ( Amer) > 60 Est GFR (Non-Af Amer) > 60 Random Glucose 93 Calcium 8.2 L Phosphorus 3.3 Magnesium 2.2 Total Bilirubin 0.6 AST 2258 H ALT 574 H Alkaline Phosphatase 346 H Total Protein 6.5 Albumin 2.4 L Globulin 4.1 H Albumin/Globulin Ratio 0.6 L Venous Blood Potassium Urine Color Karen Urine Clarity Turbid Urine pH 7.0 Ur Specific Valier 1.017 Urine Protein 30 Urine Glucose (UA) Neg Urine Ketones Negative Urine Blood Moderate Urine Nitrate Negative Urine Bilirubin Negative Urine Urobilinogen 0.2-1.0 Ur Leukocyte Esterase Large Urine RBC (Auto) 240 H Urine Microscopic WBC 1728 H Urine Bacteria Many H Influenza Typ A,B (EIA) 09/29/18 09/29/18 08:20 13:31 WBC RBC Hgb Hct MCV MCH MCHC RDW Plt Count MPV Neut % (Auto) Lymph % (Auto) [place] % (Auto) Eos % (Auto) Baso % (Auto) Neut # (Auto) Lymph # (Auto) [place] # (Auto) Eos # (Auto) Baso # (Auto) Neutrophils % (Manual) Band Neutrophils % Lymphocytes % (Manual) Monocytes % (Manual) Myelocytes % Toxic Granulation Platelet Estimate Plt Clumps, EDTA Giant Platelets Polychromasia Hypochromasia (manual) Anisocytosis (manual) PT INR APTT pCO2 pO2 43 HCO3 ABG pH ABG Total CO2 ABG O2 Saturation ABG O2 Content ABG Base Excess ABG Hemoglobin ABG Carboxyhemoglobin POC ABG HHb (Measured) ABG Methemoglobin ABG O2 Capacity Flo Test VBG pH 7.49 H VBG pCO2 21 L VBG HCO3 20.6 VBG Total CO2 16.6 L VBG O2 Sat (Calc) 83.1 H VBG Base Excess -5.1 L VBG Potassium 3.4 L A-a O2 Difference Hgb O2 Saturation Sodium 144.0 Chloride 118.0 H Glucose 62 L Lactate 5.3 H* FiO2 35.0 Blood Gas Comments Lac=5.3 Crit Value Called To nancy Barbosa Crit Value Called By 22 Crit Value Read Back Y Blood Gas Notified Time 1338 Potassium Carbon Dioxide Anion Gap BUN Creatinine Est GFR ( Amer) Est GFR (Non-Af Amer) Random Glucose Calcium Phosphorus Magnesium Total Bilirubin AST ALT Alkaline Phosphatase Total Protein Albumin Globulin Albumin/Globulin Ratio Venous Blood Potassium 3.4 L Urine Color Urine Clarity Urine pH Ur Specific [place] Urine Protein Urine Glucose (UA) Urine Ketones Urine Blood Urine Nitrate Urine Bilirubin Urine Urobilinogen Ur Leukocyte Esterase Urine RBC (Auto) Urine Microscopic WBC Urine Bacteria Influenza Typ A,B (EIA) Negative for flu a/b Assessment & Plan (1) Decubital ulcer Status: Acute (2) Fever in adult Status: Acute (3) Sepsis Status: Acute (4) Septic shock Status: Acute (5) Severe sepsis Status: Acute (6) UTI (urinary tract infection) Status: Acute - Assessment and Plan (Free Text) Assessment: consider CT sacrum to r/o OM when stable surgical debridement may be needed consider colostomy IV antibiotics nutritional support
--- NOTE | 2018-09-29 18:01 | CP.CCUPN ---
CCU Subjective - Physician Review Events Since Last Encounter (Free Text): 09/29/18 17:43 The patient was Seen/interviewed and examined by me at the bedside during ICU round, Medical records reviewed and Management issues were discussed and formulated with the house staff. Events reviewed Mr De La Cruz is a 78 Years old Male with past medical history of hypertension, hyperlipidemia, Parkinson disease and status post CVA with with left-sided paralysis He arrives to the emergency room for from home for evaluation of worsening shortness of breath and altered mental status In the emergency room found to be in septic shock, hypotensive with blood pressure of 83/47, fever of 101.3 F and heart rate of 154 After the first liter of IV fluid hydration, noted with improved his vital signs Labs was noted for severe metabolic acidosis and elevated lactate over 10 Cultures was sent and he was started in IV vancomycin and IV Zosyn Upon arrival to the ICU the patient is lethargic confused not following commands He is severely hypotensive received 1 L of IV fluid so far Another liter of IV bolus initiated an urgent under urgent circumstances and complete sterile precautions left IJ central line was placed Vasopressor with Levophed ordered and is on hold for blood pressure CCU Objective - Vital Signs / Intake & Output Vital Signs (Last 4 hours): Vital Signs Temp Pulse Resp BP Pulse Ox 09/29/18 14:33 99.1 F 88 18 100/68 100 Intake and Output (Last 8hrs): Intake & Output 09/29/18 09/29/18 09/29/18 06:59 14:59 22:59 Intake Total 1999 Balance 1999 Weight 96 lb Intake: IV 2000 Intravenous #1 1000 Intravenous #2 1000 - Physical Exam Physical Exam Limitations: Positive for: Altered Mental Status Head: Positive for: Atraumatic, Normocephalic Pupils: Positive for: PERRL. Negative for: Sluggish, Non-Reactive Extroacular Muscles: Positive for: EOMI Conjunctiva: Positive for: Normal. Negative for: Injected, Icteric Ears: Positive for: Normal Mouth: Positive for: Moist Mucous Membranes Neck: Positive for: Normal Range of Motion, Trachea Midline. Negative for: Meningeal Signs, MIDLINE TENDERNESS, Paraspinal Tenderness, JVD, Lymphadenopathy, Bruit, Other Respiratory/Chest: Positive for: Clear to Auscultation. Negative for: Good Air Exchange, Respiratory Distress, Accessory Muscle Use, Decreased Breath Sounds, Rales, Retracting Cardiovascular: Positive for: Regular Rate and Rhythm, Normal S1, S2. Negative for: Murmurs Abdomen: Positive for: Normal Bowel Sounds. Negative for: Tenderness, Distention Psychiatric: Negative for: Alert, Oriented x 3 - Medications Active Medications: Active Medications Generic Name Dose Route Start Last Admin Trade Name Freq PRN Reason Stop Dose Admin Atorvastatin Calcium 20 mg 09/30/18 09:00 Lipitor PO DAILY [facility] Carbidopa/Levodopa 1 tab 09/29/18 13:00 Sinemet PO TID [facility] Clopidogrel Bisulfate 75 mg 09/30/18 09:00 Plavix PO DAILY [facility] Escitalopram Oxalate 10 mg 09/30/18 09:00 Lexapro PO DAILY [facility] Famotidine 20 mg 09/29/18 17:00 Pepcid PO BID [facility] Ferrous Sulfate 325 mg 09/29/18 17:00 Feosol PO BID [facility] - Patient Studies Lab Studies: Microbiology Studies 09/29/18 08:30 Gram Stain - Final Coccyx Lab Studies 09/29/18 09/29/18 09/29/18 Range/Units 13:31 08:20 08:20 WBC (4.8-10.8) K/uL RBC (4.40-5.90) Mil/uL Hgb (12.0-18.0) g/dL Hct (35.0-51.0) % MCV (80.0-94.0) fl MCH (27.0-31.0) pg MCHC (33.0-37.0) g/dL RDW (11.5-14.5) % Plt Count (130-400) K/uL MPV (7.2-11.7) fl Neut % (Auto) (50.0-75.0) % Lymph % (Auto) (20.0-40.0) % [place] % (Auto) (0.0-10.0) % Eos % (Auto) (0.0-4.0) % Baso % (Auto) (0.0-2.0) % Neut # (Auto) (1.8-7.0) K/uL Lymph # (Auto) (1.0-4.3) K/uL [place] # (Auto) (0.0-0.8) K/uL Eos # (Auto) (0.0-0.7) K/uL Baso # (Auto) (0.0-0.2) K/uL Neutrophils % (Manual) (42-75) % Band Neutrophils % (0-2) % Lymphocytes % (Manual) (20-50) % Monocytes % (Manual) (0-10) % Myelocytes % (0-0) % Toxic Granulation Platelet Estimate (NORMAL) Plt Clumps, EDTA Giant Platelets Polychromasia Hypochromasia (manual) Anisocytosis (manual) PT (9.8-13.1) Seconds INR APTT (25.6-37.1) Seconds pCO2 (35-45) mm/Hg pO2 43 (80-100) mm/Hg HCO3 (21-28) mmol/L ABG pH (7.35-7.45) ABG Total CO2 (22-28) mmol/L ABG O2 Saturation (95-98) % ABG O2 Content (15-23) ML/dL ABG Base Excess (-2.0-3.0) mmol/L ABG Hemoglobin (11.7-17.4) g/dL ABG Carboxyhemoglobin (0.5-1.5) % POC ABG HHb (Measured) (0.0-5.0) % ABG Methemoglobin (0.0-3.0) % ABG O2 Capacity (16-24) mL/dL Flo Test VBG pH 7.49 H (7.32-7.43) VBG pCO2 21 L (40-60) mmHg VBG HCO3 20.6 mmol/L VBG Total CO2 16.6 L (22-28) mmol/L VBG O2 Sat (Calc) 83.1 H (40-65) % VBG Base Excess -5.1 L (0.0-2.0) mmol/L VBG Potassium 3.4 L (3.6-5.2) mmol/L A-a O2 Difference mm/Hg Hgb O2 Saturation (95.0-98.0) % Sodium 144.0 (132-148) mmol/L Chloride 118.0 H (98-107) mmol/L Glucose 62 L (75-110) mg/dL Lactate 5.3 H* (0.7-2.1) mmol/L FiO2 35.0 % Blood Gas Comments Lac=5.3 Crit Value Called To nancy Barbosa Crit Value Called By 22 Crit Value Read Back Y Blood Gas Notified Time 1338 Potassium (3.6-5.0) MMOL/L Carbon Dioxide (22-30) mmol/L Anion Gap (10-20) BUN (9-20) mg/dl Creatinine (0.8-1.5) mg/dl Est GFR ( Amer) Est GFR (Non-Af Amer) Random Glucose (75-110) mg/dL Calcium (8.4-10.2) mg/dL Phosphorus (2.5-4.5) mg/dl Magnesium (1.6-2.3) MG/DL Total Bilirubin (0.2-1.3) mg/dl AST (17-59) U/L ALT (21-72) U/L Alkaline Phosphatase (38-126) U/L Total Protein (6.3-8.2) G/DL Albumin (3.5-5.0) g/dL Globulin (2.2-3.9) gm/dL Albumin/Globulin Ratio (1.0-2.1) Venous Blood Potassium 3.4 L (3.6-5.2) mmol/L Urine Color Karen (YELLOW) Urine Clarity Turbid (Clear) Urine pH 7.0 (5.0-8.0) Ur Specific [place] 1.017 (1.003-1.030) Urine Protein 30 (NEGATIVE) mg/dL Urine Glucose (UA) Neg (NEGATIVE) mg/dL Urine Ketones Negative (NEGATIVE) mg/dL Urine Blood Moderate (NEGATIVE) Urine Nitrate Negative (NEGATIVE) Urine Bilirubin Negative (NEGATIVE) Urine Urobilinogen 0.2-1.0 (0.2-1.0) mg/dL Ur Leukocyte Esterase Large (Negative) Nomi/uL Urine RBC (Auto) 240 H (0-3) /hpf Urine Microscopic WBC 1728 H (0-5) /hpf Urine Bacteria Many H (<OCC) Influenza Typ A,B (EIA) Negative for flu a/b (NEGATIVE) 09/29/18 09/29/18 09/29/18 Range/Units 07:30 07:30 07:30 WBC 6.2 (4.8-10.8) K/uL RBC 3.35 L (4.40-5.90) Mil/uL Hgb 9.7 L (12.0-18.0) g/dL Hct 31.3 L (35.0-51.0) % MCV 93.4 (80.0-94.0) fl MCH 28.8 (27.0-31.0) pg MCHC 30.8 L (33.0-37.0) g/dL RDW 16.1 H (11.5-14.5) % Plt Count 347 (130-400) K/uL MPV 8.7 (7.2-11.7) fl Neut % (Auto) 90.1 H (50.0-75.0) % Lymph % (Auto) 8.9 L (20.0-40.0) % Sutton % (Auto) 0.7 (0.0-10.0) % Eos % (Auto) 0.1 (0.0-4.0) % Baso % (Auto) 0.2 (0.0-2.0) % Neut # (Auto) 5.5 (1.8-7.0) K/uL Lymph # (Auto) 0.5 L (1.0-4.3) K/uL [place] # (Auto) 0.0 (0.0-0.8) K/uL Eos # (Auto) 0.0 (0.0-0.7) K/uL Baso # (Auto) 0.0 (0.0-0.2) K/uL Neutrophils % (Manual) 65 (42-75) % Band Neutrophils % 18 H* (0-2) % Lymphocytes % (Manual) 15 L (20-50) % Monocytes % (Manual) 1 (0-10) % Myelocytes % 1 H (0-0) % Toxic Granulation Present Platelet Estimate Normal (NORMAL) Plt Clumps, EDTA Present Giant Platelets Present Polychromasia Slight Hypochromasia (manual) Slight Anisocytosis (manual) Slight PT 15.7 H (9.8-13.1) Seconds INR 1.4 APTT 29.6 (25.6-37.1) Seconds pCO2 (35-45) mm/Hg pO2 (80-100) mm/Hg HCO3 (21-28) mmol/L ABG pH (7.35-7.45) ABG Total CO2 (22-28) mmol/L ABG O2 Saturation (95-98) % ABG O2 Content (15-23) ML/dL ABG Base Excess (-2.0-3.0) mmol/L ABG Hemoglobin (11.7-17.4) g/dL ABG Carboxyhemoglobin (0.5-1.5) % POC ABG HHb (Measured) (0.0-5.0) % ABG Methemoglobin (0.0-3.0) % ABG O2 Capacity (16-24) mL/dL Flo Test VBG pH (7.32-7.43) VBG pCO2 (40-60) mmHg VBG HCO3 mmol/L VBG Total CO2 (22-28) mmol/L VBG O2 Sat (Calc) (40-65) % VBG Base Excess (0.0-2.0) mmol/L VBG Potassium (3.6-5.2) mmol/L A-a O2 Difference mm/Hg Hgb O2 Saturation (95.0-98.0) % Sodium 143 (132-148) mmol/L Chloride 113 H (98-107) mmol/L Glucose (75-110) mg/dL Lactate (0.7-2.1) mmol/L FiO2 % Blood Gas Comments Crit Value Called To Crit Value Called By Crit Value Read Back Blood Gas Notified Time Potassium 4.1 (3.6-5.0) MMOL/L Carbon Dioxide 18 L (22-30) mmol/L Anion Gap 16 (10-20) BUN 21 H (9-20) mg/dl Creatinine 1.1 (0.8-1.5) mg/dl Est GFR ( Amer) > 60 Est GFR (Non-Af Amer) > 60 Random Glucose 93 (75-110) mg/dL Calcium 8.2 L (8.4-10.2) mg/dL Phosphorus 3.3 (2.5-4.5) mg/dl Magnesium 2.2 (1.6-2.3) MG/DL Total Bilirubin 0.6 (0.2-1.3) mg/dl AST 2258 H (17-59) U/L ALT 574 H (21-72) U/L Alkaline Phosphatase 346 H (38-126) U/L Total Protein 6.5 (6.3-8.2) G/DL Albumin 2.4 L (3.5-5.0) g/dL Globulin 4.1 H (2.2-3.9) gm/dL Albumin/Globulin Ratio 0.6 L (1.0-2.1) Venous Blood Potassium (3.6-5.2) mmol/L Urine Color (YELLOW) Urine Clarity (Clear) Urine pH (5.0-8.0) Ur Specific [place] (1.003-1.030) Urine Protein (NEGATIVE) mg/dL Urine Glucose (UA) (NEGATIVE) mg/dL Urine Ketones (NEGATIVE) mg/dL Urine Blood (NEGATIVE) Urine Nitrate (NEGATIVE) Urine Bilirubin (NEGATIVE) Urine Urobilinogen (0.2-1.0) mg/dL Ur Leukocyte Esterase (Negative) Nomi/uL Urine RBC (Auto) (0-3) /hpf Urine Microscopic WBC (0-5) /hpf Urine Bacteria (<OCC) Influenza Typ A,B (EIA) (NEGATIVE) 09/29/18 09/29/18 Range/Units 07:28 07:27 WBC (4.8-10.8) K/uL RBC (4.40-5.90) Mil/uL Hgb (12.0-18.0) g/dL Hct (35.0-51.0) % MCV (80.0-94.0) fl MCH (27.0-31.0) pg MCHC (33.0-37.0) g/dL RDW (11.5-14.5) % Plt Count (130-400) K/uL MPV (7.2-11.7) fl Neut % (Auto) (50.0-75.0) % Lymph % (Auto) (20.0-40.0) % [place] % (Auto) (0.0-10.0) % Eos % (Auto) (0.0-4.0) % Baso % (Auto) (0.0-2.0) % Neut # (Auto) (1.8-7.0) K/uL Lymph # (Auto) (1.0-4.3) K/uL [place] # (Auto) (0.0-0.8) K/uL Eos # (Auto) (0.0-0.7) K/uL Baso # (Auto) (0.0-0.2) K/uL Neutrophils % (Manual) (42-75) % Band Neutrophils % (0-2) % Lymphocytes % (Manual) (20-50) % Monocytes % (Manual) (0-10) % Myelocytes % (0-0) % Toxic Granulation Platelet Estimate (NORMAL) Plt Clumps, EDTA Giant Platelets Polychromasia Hypochromasia (manual) Anisocytosis (manual) PT (9.8-13.1) Seconds INR APTT (25.6-37.1) Seconds pCO2 17 L* (35-45) mm/Hg pO2 23 L 94 (80-100) mm/Hg HCO3 17.2 L (21-28) mmol/L ABG pH 7.46 H (7.35-7.45) ABG Total CO2 12.6 L (22-28) mmol/L ABG O2 Saturation 99.2 H (95-98) % ABG O2 Content 13.2 L (15-23) ML/dL ABG Base Excess -9.9 L (-2.0-3.0) mmol/L ABG Hemoglobin 9.6 L (11.7-17.4) g/dL ABG Carboxyhemoglobin 0.6 (0.5-1.5) % POC ABG HHb (Measured) 0.8 (0.0-5.0) % ABG Methemoglobin 2.2 (0.0-3.0) % ABG O2 Capacity 13.3 L (16-24) mL/dL Flo Test Yes VBG pH 7.19 L* (7.32-7.43) VBG pCO2 51 (40-60) mmHg VBG HCO3 16.7 mmol/L VBG Total CO2 21.1 L (22-28) mmol/L VBG O2 Sat (Calc) 27.6 L (40-65) % VBG Base Excess -8.6 L (0.0-2.0) mmol/L VBG Potassium 4.2 (3.6-5.2) mmol/L A-a O2 Difference 99.0 mm/Hg Hgb O2 Saturation 96.4 (95.0-98.0) % Sodium 145.0 (132-148) mmol/L Chloride 110.0 H (98-107) mmol/L Glucose 97 (75-110) mg/dL Lactate 10.5 H* (0.7-2.1) mmol/L FiO2 21.0 30.0 % Blood Gas Comments Crit Value Called To Md amish almonte Crit Value Called By 15 15 Crit Value Read Back Y Y Blood Gas Notified Time 732 756 Potassium (3.6-5.0) MMOL/L Carbon Dioxide (22-30) mmol/L Anion Gap (10-20) BUN (9-20) mg/dl Creatinine (0.8-1.5) mg/dl Est GFR ( Amer) Est GFR (Non-Af Amer) Random Glucose (75-110) mg/dL Calcium (8.4-10.2) mg/dL Phosphorus (2.5-4.5) mg/dl Magnesium (1.6-2.3) MG/DL Total Bilirubin (0.2-1.3) mg/dl AST (17-59) U/L ALT (21-72) U/L Alkaline Phosphatase (38-126) U/L Total Protein (6.3-8.2) G/DL Albumin (3.5-5.0) g/dL Globulin (2.2-3.9) gm/dL Albumin/Globulin Ratio (1.0-2.1) Venous Blood Potassium 4.2 (3.6-5.2) mmol/L Urine Color (YELLOW) Urine Clarity (Clear) Urine pH (5.0-8.0) Ur Specific [place] (1.003-1.030) Urine Protein (NEGATIVE) mg/dL Urine Glucose (UA) (NEGATIVE) mg/dL Urine Ketones (NEGATIVE) mg/dL Urine Blood (NEGATIVE) Urine Nitrate (NEGATIVE) Urine Bilirubin (NEGATIVE) Urine Urobilinogen (0.2-1.0) mg/dL Ur Leukocyte Esterase (Negative) Nomi/uL Urine RBC (Auto) (0-3) /hpf Urine Microscopic WBC (0-5) /hpf Urine Bacteria (<OCC) Influenza Typ A,B (EIA) (NEGATIVE) Laboratory Results - last 24 hr 09/29/18 09/29/18 09/29/18 07:27 07:28 07:30 WBC 6.2 RBC 3.35 L Hgb 9.7 L Hct 31.3 L MCV 93.4 MCH 28.8 MCHC 30.8 L RDW 16.1 H Plt Count 347 MPV 8.7 Neut % (Auto) 90.1 H Lymph % (Auto) 8.9 L [place] % (Auto) 0.7 Eos % (Auto) 0.1 Baso % (Auto) 0.2 Neut # (Auto) 5.5 Lymph # (Auto) 0.5 L [place] # (Auto) 0.0 Eos # (Auto) 0.0 Baso # (Auto) 0.0 Neutrophils % (Manual) 65 Band Neutrophils % 18 H* Lymphocytes % (Manual) 15 L Monocytes % (Manual) 1 Myelocytes % 1 H Toxic Granulation Present Platelet Estimate Normal Plt Clumps, EDTA Present Giant Platelets Present Polychromasia Slight Hypochromasia (manual) Slight Anisocytosis (manual) Slight PT INR APTT pCO2 17 L* pO2 94 23 L HCO3 17.2 L ABG pH 7.46 H ABG Total CO2 12.6 L ABG O2 Saturation 99.2 H ABG O2 Content 13.2 L ABG Base Excess -9.9 L ABG Hemoglobin 9.6 L ABG Carboxyhemoglobin 0.6 POC ABG HHb (Measured) 0.8 ABG Methemoglobin 2.2 ABG O2 Capacity 13.3 L Flo Test Yes VBG pH 7.19 L* VBG pCO2 51 VBG HCO3 16.7 VBG Total CO2 21.1 L VBG O2 Sat (Calc) 27.6 L VBG Base Excess -8.6 L VBG Potassium 4.2 A-a O2 Difference 99.0 Hgb O2 Saturation 96.4 Sodium 145.0 Chloride 110.0 H Glucose 97 Lactate 10.5 H* FiO2 30.0 21.0 Blood Gas Comments Crit Value Called To Dr amish almonte Crit Value Called By 15 15 Crit Value Read Back Y Y Blood Gas Notified Time 352 732 Potassium Carbon Dioxide Anion Gap BUN Creatinine Est GFR ( Amer) Est GFR (Non-Af Amer) Random Glucose Calcium Phosphorus Magnesium Total Bilirubin AST ALT Alkaline Phosphatase Total Protein Albumin Globulin Albumin/Globulin Ratio Venous Blood Potassium 4.2 Urine Color Urine Clarity Urine pH Ur Specific [place] Urine Protein Urine Glucose (UA) Urine Ketones Urine Blood Urine Nitrate Urine Bilirubin Urine Urobilinogen Ur Leukocyte Esterase Urine RBC (Auto) Urine Microscopic WBC Urine Bacteria Influenza Typ A,B (EIA) 03/11/1409/29/18 09/29/18 07:30 07:30 08:20 WBC RBC Hgb Hct MCV MCH MCHC RDW Plt Count MPV Neut % (Auto) Lymph % (Auto) [place] % (Auto) Eos % (Auto) Baso % (Auto) Neut # (Auto) Lymph # (Auto) [place] # (Auto) Eos # (Auto) Baso # (Auto) Neutrophils % (Manual) Band Neutrophils % Lymphocytes % (Manual) Monocytes % (Manual) Myelocytes % Toxic Granulation Platelet Estimate Plt Clumps, EDTA Giant Platelets Polychromasia Hypochromasia (manual) Anisocytosis (manual) PT 15.7 H INR 1.4 APTT 29.6 pCO2 pO2 HCO3 ABG pH ABG Total CO2 ABG O2 Saturation ABG O2 Content ABG Base Excess ABG Hemoglobin ABG Carboxyhemoglobin POC ABG HHb (Measured) ABG Methemoglobin ABG O2 Capacity Flo Test VBG pH VBG pCO2 VBG HCO3 VBG Total CO2 VBG O2 Sat (Calc) VBG Base Excess VBG Potassium A-a O2 Difference Hgb O2 Saturation Sodium 143 Chloride 113 H Glucose Lactate FiO2 Blood Gas Comments Crit Value Called To Crit Value Called By Crit Value Read Back Blood Gas Notified Time Potassium 4.1 Carbon Dioxide 18 L Anion Gap 16 BUN 21 H Creatinine 1.1 Est GFR ( Amer) > 60 Est GFR (Non-Af Amer) > 60 Random Glucose 93 Calcium 8.2 L Phosphorus 3.3 Magnesium 2.2 Total Bilirubin 0.6 AST 2258 H ALT 574 H Alkaline Phosphatase 346 H Total Protein 6.5 Albumin 2.4 L Globulin 4.1 H Albumin/Globulin Ratio 0.6 L Venous Blood Potassium Urine Color Karen Urine Clarity Turbid Urine pH 7.0 Ur Specific [place] 1.017 Urine Protein 30 Urine Glucose (UA) Neg Urine Ketones Negative Urine Blood Moderate Urine Nitrate Negative Urine Bilirubin Negative Urine Urobilinogen 0.2-1.0 Ur Leukocyte Esterase Large Urine RBC (Auto) 240 H Urine Microscopic WBC 1728 H Urine Bacteria Many H Influenza Typ A,B (EIA) 09/29/18 09/29/18 08:20 13:31 WBC RBC Hgb Hct MCV MCH MCHC RDW Plt Count MPV Neut % (Auto) Lymph % (Auto) [place] % (Auto) Eos % (Auto) Baso % (Auto) Neut # (Auto) Lymph # (Auto) [place] # (Auto) Eos # (Auto) Baso # (Auto) Neutrophils % (Manual) Band Neutrophils % Lymphocytes % (Manual) Monocytes % (Manual) Myelocytes % Toxic Granulation Platelet Estimate Plt Clumps, EDTA Giant Platelets Polychromasia Hypochromasia (manual) Anisocytosis (manual) PT INR APTT pCO2 pO2 43 HCO3 ABG pH ABG Total CO2 ABG O2 Saturation ABG O2 Content ABG Base Excess ABG Hemoglobin ABG Carboxyhemoglobin POC ABG HHb (Measured) ABG Methemoglobin ABG O2 Capacity Flo Test VBG pH 7.49 H VBG pCO2 21 L VBG HCO3 20.6 VBG Total CO2 16.6 L VBG O2 Sat (Calc) 83.1 H VBG Base Excess -5.1 L VBG Potassium 3.4 L A-a O2 Difference Hgb O2 Saturation Sodium 144.0 Chloride 118.0 H Glucose 62 L Lactate 5.3 H* FiO2 35.0 Blood Gas Comments Lac=5.3 Crit Value Called To nancy Barbosa Crit Value Called By 22 Crit Value Read Back Y Blood Gas Notified Time 1338 Potassium Carbon Dioxide Anion Gap BUN Creatinine Est GFR ( Amer) Est GFR (Non-Af Amer) Random Glucose Calcium Phosphorus Magnesium Total Bilirubin AST ALT Alkaline Phosphatase Total Protein Albumin Globulin Albumin/Globulin Ratio Venous Blood Potassium 3.4 L Urine Color Urine Clarity Urine pH Ur Specific [place] Urine Protein Urine Glucose (UA) Urine Ketones Urine Blood Urine Nitrate Urine Bilirubin Urine Urobilinogen Ur Leukocyte Esterase Urine RBC (Auto) Urine Microscopic WBC Urine Bacteria Influenza Typ A,B (EIA) Negative for flu a/b Radiology Impressions: Radiology Impressions Chest X-Ray 09/29/18 07:23 IMPRESSION: No interval acute cardiopulmonary disease appreciated. Stable elevated left hemidiaphragm. Chest X-Ray 09/29/18 13:22 IMPRESSION: Satisfactory position of recently placed central line. No pneumothorax. EKG/Cardiology Studies: Cardiology / EKG Studies 09/29/18 07:23 ELECTROCARDIOGRAM Stat Comment: Mode Of Transportation: Reason For Exam: Sepsis Patient Review of Systems - Review of Systems Systems not reviewed;Unavailable: Altered Mental Status Critical Care Progress Note - Extremities/Vascular Does the Patient have a Central Venous Catheter?: Yes Does the Patient need a Central Venous Catheter?: Yes Does the Patient have a Davalos Catheter?: Yes Does the Patient need a Davalos Catheter?: Yes Assessment/Plan (1) Decubital ulcer Current Visit: Yes Status: Acute Priority: High (2) Septic shock Current Visit: Yes Status: Acute Priority: High (3) UTI (urinary tract infection) Current Visit: Yes Status: Acute Priority: High (4) Altered mental status Current Visit: No Status: Acute Priority: High - Assessment and Plan (Free Text) Assessment: Patient admitted to the intensive care unit with altered mental status from toxic metabolic encephalopathy and hypotension from septic shock The source of infection likely urinary tract infection or infected sacral decubitus ulcer Admit to the ICU for hemodynamic monitoring Continue IV hydration and volume resuscitation Maintain map 7585 Might have to use vasopressors, central line placed in the right and the left IJ Optimize blood pressure and maintain end-organ perfusion Pain cultures sent in the emergency room Continue IV vancomycin and IV Zosyn Wound care consulted GI/DVT PPX Stress Ulcer prophylaxis with Protonix 40 mg IVP QD DVT prophylaxis with SCD Code Status: Full code Total critical care time 42 minutes
[2018-09-29] MEDS: Sodium Chloride 0.9% 1,000 ML IV SCH (20:00)
[2018-09-29 20:12] LABS: HEPATITIS B SURFACE AG Negative (NEGATIVE)
[2018-09-29 20:18] LABS: HEPATITIS A IGM NEGATIVE (NEGATIVE); HEPATITIS B CORE AB NEGATIVE (NEGATIVE)
[2018-09-29 20:30] LABS: HEPATITIS C ANTIBODY NEGATIVE (NEGATIVE)
[2018-09-29] MEDS ORDERED: Gentamicin 160 MG in Sodium Chloride 0.9% 100 ML IVPB STA (22:52)
[2018-09-30] MEDS: Sodium Chloride 0.9% 1,000 ML IV SCH ×3 (03:19→16:31)
[2018-09-30 06:00] LABS: BLOOD UREA NITROGEN 24 mg/dl (9-20); CALCIUM 6.7 mg/dL (8.4-10.2); GFR NON-AFRICAN AMERICAN 53
[2018-09-30 06:01] LABS: MEAN CORPUSCULAR HEMOGLOBIN 28.3 pg (27.0-31.0); MEAN CORPUSCULAR HGB CONC 31.2 g/dL (33.0-37.0); RED CELL DISTRIBUTION WIDTH 15.8 % (11.5-14.5)
[2018-09-30 06:23] LABS: HEMOGLOBIN 9.2 g/dL (12.0-18.0); MEAN CELL VOLUME 90.6 fl (80.0-94.0); RBC 3.24 Mil/uL (4.40-5.90)
[2018-09-30 06:29] LABS: WHITE BLOOD COUNT 29.2 K/uL (4.8-10.8)
[2018-09-30 07:13] LABS: ALB/GLOB RATIO 0.6 (1.0-2.1); ALBUMIN 2.1 g/dL (3.5-5.0); BILIRUBIN,DIRECT 0.4 mg/ml (0.0-0.4)
--- NOTE | 2018-09-30 09:04 | CP.PCM.PN ---
Subjective - Date & Time of Evaluation Date of Evaluation: 09/30/18 Time of Evaluation: 09:03 - Subjective Subjective: pt lethargic in bed, no responding to verbal/tactile address. nof /c, n/v/d. nsr bp low 90s systolic. bw noted-extensive elevation in wbc, lft trending down. consults appriciated. Objective - Vital Signs/Intake and Output Vital Signs (last 24 hours): Temp Pulse Resp BP Pulse Ox 97.2 F L 76 17 95/65 L 100 09/30/18 08:00 09/30/18 08:00 09/30/18 08:00 09/30/18 08:00 09/30/18 08:00 Intake and Output: 09/30/18 09/30/18 06:59 18:59 Intake Total 2250 300 Balance 2250 300 - Medications Medications: Current Medications Acetaminophen (Tylenol 325mg Tab) 650 mg PO Q6 PRN PRN Reason: Fever >100.4 F Atorvastatin Calcium (Lipitor) 20 mg PO DAILY COUNTS INCLUDE 234 BEDS AT THE [facility] Carbidopa/Levodopa (Sinemet) 1 tab PO TID COUNTS INCLUDE 234 BEDS AT THE [facility] Last Admin: 09/30/18 09:00 Dose: Not Given Clopidogrel Bisulfate (Plavix) 75 mg PO DAILY COUNTS INCLUDE 234 BEDS AT THE [facility] Escitalopram Oxalate (Lexapro) 10 mg PO DAILY COUNTS INCLUDE 234 BEDS AT THE [facility] Famotidine (Pepcid) 20 mg PO BID COUNTS INCLUDE 234 BEDS AT THE [facility] Last Admin: 09/29/18 17:04 Dose: Not Given Ferrous Sulfate (Feosol) 325 mg PO BID COUNTS INCLUDE 234 BEDS AT THE [facility] Last Admin: 09/29/18 17:04 Dose: Not Given Heparin Sodium (Porcine) (Heparin) 5,000 units SC Q8 COUNTS INCLUDE 234 BEDS AT THE [facility]; Protocol Last Admin: 09/30/18 09:01 Dose: 5,000 units Vancomycin HCl 750 mg/ Sodium (Chloride) 250 mls @ 166.667 mls/hr IVPB Q12H COUNTS INCLUDE 234 BEDS AT THE [facility]; Protocol Last Admin: 09/30/18 05:57 Dose: 166.667 mls/hr Piperacillin Sod/Tazobactam (Sod 2.25 gm/ Sodium Chloride) 100 mls @ 100 mls/hr IVPB Q8 [facility]; Protocol Last Admin: 09/30/18 08:58 Dose: 100 mls/hr Sodium Chloride (Sodium Chloride 0.9%) 1,000 mls @ 150 mls/hr IV .Q6H40M COUNTS INCLUDE 234 BEDS AT THE [facility] Stop: 09/30/18 19:44 Last Admin: 09/30/18 03:19 Dose: 150 mls/hr Pantoprazole Sodium (Protonix Inj) 40 mg IVP DAILY COUNTS INCLUDE 234 BEDS AT THE [facility] - Labs Labs: 09/30/18 05:00 09/30/18 05:00 PT 15.7 Seconds (9.8-13.1) H 09/29/18 07:30 INR 1.4 09/29/18 07:30 APTT 29.6 Seconds (25.6-37.1) 09/29/18 07:30 - Constitutional Appears: Non-toxic, No Acute Distress, Chronically Ill - Head Exam Head Exam: ATRAUMATIC, NORMAL INSPECTION, NORMOCEPHALIC - Eye Exam Eye Exam: EOMI, Normal appearance, PERRL Pupil Exam: NORMAL ACCOMODATION, PERRL - ENT Exam ENT Exam: Mucous Membranes Moist, Normal Exam - Neck Exam Neck Exam: Full ROM, Normal Inspection. absent: Lymphadenopathy - Respiratory Exam Respiratory Exam: Clear to Ausculation Bilateral, NORMAL BREATHING PATTERN - Cardiovascular Exam Cardiovascular Exam: REGULAR RHYTHM, RRR, +S1, +S2. absent: Murmur - GI/Abdominal Exam GI & Abdominal Exam: Soft, Normal Bowel Sounds. absent: Tenderness - Extremities Exam Extremities Exam: Full ROM, Normal Capillary Refill, Normal Inspection. absent: Joint Swelling, Pedal Edema - Back Exam Back Exam: NORMAL INSPECTION - Neurological Exam Neurological Exam: Abnormal Gait, Awake, CN II-XII Intact - Psychiatric Exam Psychiatric exam: Normal Affect, Normal Mood - Skin Skin Exam: Dry, Intact, Normal Color, Warm Assessment and Plan (1) Decubital ulcer Assessment & Plan: surgical debridement prn anbx wound rn sport bed Status: Acute (2) DVT prophylaxis Assessment & Plan: scd trudy e hose heparin Status: Acute (3) CVA (cerebral vascular accident) Assessment & Plan: old, deficit noted Status: Acute (4) Parkinson disease Assessment & Plan: cont home meds Status: Acute (5) Septic shock Assessment & Plan: procalcitonin noted id cont anbx gent added as per id Status: Acute (6) UTI (urinary tract infection) Assessment & Plan: cont nabx urine c/s prelim noted appears cause of sepsis Status: Acute
[2018-09-30] MEDS ORDERED: Chlorhexidine Gluconate 1 APPL/PKT TP ONE (11:28)
[2018-09-30 12:01] LABS: BASO % 0.2 % (0.0-2.0); EOS # 0.2 K/uL (0.0-0.7); EOS % 0.8 % (0.0-4.0); HEMOGLOBIN 8.8 g/dL (12.0-18.0); MEAN CELL VOLUME 89.7 fl (80.0-94.0); MEAN CORPUSCULAR HEMOGLOBIN 28.5 pg (27.0-31.0); MEAN CORPUSCULAR HGB CONC 31.8 g/dL (33.0-37.0); NEUT # 23.6 K/uL (1.8-7.0); PLATELET COUNT 247 K/uL (130-400); RBC 3.09 Mil/uL (4.40-5.90); RED CELL DISTRIBUTION WIDTH 15.7 % (11.5-14.5)
[2018-09-30] MEDS ORDERED: Dextrose 50% SYRINGE Inj (50 ml) IVP ONE ×2 (13:08→17:10)
[2018-09-30] MEDS ORDERED: Dextrose 50% SYRINGE Inj (50 ml) ONE ×2 (13:08→17:02)
[2018-09-30 13:36] LABS: ANISOCYTOSIS SLIGHT; BANDS 4 % (0-2); HYPOCHROMIC SLIGHT; LYMPHOCYTE 6 % (20-50); MONOCYTE 8 % (0-10); NEUTROPHIL 82 % (42-75); OVALOCYTES SLIGHT; PLATELET ESTIMATE NORMAL (NORMAL); TOTAL CELLS COUNTED 100; TOXIC GRANULATION PRESENT
--- NOTE | 2018-09-30 18:29 | CP.CCUPN ---
CCU Subjective - Physician Review Subjective (Free Text): 09/30/18 18:25 The patient was Seen/interviewed and examined by me at the bedside during ICU round, Medical records reviewed and Management issues were discussed and formulated with the house staff. Events reviewed Mr De La Cruz is a 78 Years old Male with past medical history of hypertension, hyperlipidemia, Parkinson disease and status post CVA with with left-sided paralysis He arrives to the emergency room yesterday 09/29 for from home for evaluation of worsening shortness of breath and altered mental status In the emergency room found to be in septic shock, hypotensive with blood pressure of 83/47, fever of 101.3 F and heart rate of 154 After the first liter of IV fluid hydration, noted with improved his vital signs Labs was noted for severe metabolic acidosis and elevated lactate over 10 Cultures was sent and he was started in IV vancomycin and IV Zosyn Upon arrival to the ICU the patient is lethargic confused not following commands He is severely hypotensive received 1 L of IV fluid so far Another liter of IV bolus initiated an urgent under urgent circumstances and complete sterile precautions left IJ central line was placed Patient is doing better today he is clinically and hemodynamically is slowly improving Vasopressor with Levophed is on hold Awake, Comfortable not in any distress Afebrile overnight with T-max 101.1 Blood culture and urine culture are both positive for gram-negative rods 09/30/18 Patient with Altered mental status on admission from toxic metabolic encephalopathy He is more awake today but still unsafe to initiate PO dite NG tube placed and was started on tube feeding CCU Objective - Vital Signs / Intake & Output Vital Signs (Last 4 hours): Vital Signs Temp Pulse Resp BP Pulse Ox 09/30/18 16:00 96.8 F L 78 15 92/62 L 100 Intake and Output (Last 8hrs): Intake & Output 09/30/18 09/30/18 09/30/18 06:59 14:59 22:59 Intake Total 1550 1300 300 Output Total 200 Balance 1550 1100 300 Weight 123 lb 9.6 oz Intake: IV 1200 1200 300 Intake, Piggyback 350 100 Output: Urine 200 Urethral (Davalos) 200 Other: # Bowel Movements 1 - Physical Exam Head: Positive for: Atraumatic, Normocephalic Pupils: Positive for: PERRL. Negative for: Sluggish, Non-Reactive Extroacular Muscles: Positive for: EOMI Conjunctiva: Positive for: Normal. Negative for: Injected, Icteric Ears: Positive for: Normal Mouth: Positive for: Moist Mucous Membranes Neck: Positive for: Normal Range of Motion, Trachea Midline. Negative for: Meningeal Signs, MIDLINE TENDERNESS, Paraspinal Tenderness, JVD, Lymphadenopathy, Bruit, Other Respiratory/Chest: Positive for: Clear to Auscultation. Negative for: Good Air Exchange, Respiratory Distress, Accessory Muscle Use, Decreased Breath Sounds, Rales, Retracting Cardiovascular: Positive for: Regular Rate and Rhythm, Normal S1, S2. Negative for: Murmurs Abdomen: Positive for: Normal Bowel Sounds. Negative for: Tenderness, Distention Psychiatric: Negative for: Alert, Oriented x 3 - Medications Active Medications: Active Medications Generic Name Dose Route Start Last Admin Trade Name Freq PRN Reason Stop Dose Admin Acetaminophen 650 mg 09/29/18 19:44 Tylenol 325mg Tab PO Q6 PRN Fever >100.4 F Atorvastatin Calcium 20 mg 09/30/18 09:00 09/30/18 15:59 Lipitor PO Not Given DAILY [facility] Carbidopa/Levodopa 1 tab 09/29/18 13:00 09/30/18 17:06 Sinemet PO 1 tab TID [facility] Administration Clopidogrel Bisulfate 75 mg 09/30/18 09:00 09/30/18 16:26 Plavix PO Not Given DAILY [facility] Escitalopram Oxalate 10 mg 09/30/18 09:00 09/30/18 15:59 Lexapro PO Not Given DAILY [facility] Famotidine 20 mg 09/29/18 17:00 09/30/18 17:07 Pepcid PO 20 mg BID [facility] Administration Ferrous Sulfate 325 mg 09/29/18 17:00 09/30/18 17:07 Feosol PO 325 mg BID [facility] Administration Heparin Sodium (Porcine) 5,000 units 09/29/18 18:15 09/30/18 16:58 Heparin SC 5,000 units Q8 [facility] Administration Protocol Vancomycin HCl 750 mg/ Sodium 250 mls @ 166.667 mls/hr 09/29/18 18:00 09/30/18 17:08 Chloride IVPB 166.667 mls/hr Q12H [facility] Administration Protocol Piperacillin Sod/Tazobactam 100 mls @ 100 mls/hr 09/29/18 18:00 09/30/18 16:33 Sod 2.25 gm/ Sodium Chloride IVPB 100 mls/hr Q8 [facility] Administration Protocol Sodium Chloride 1,000 mls @ 150 mls/hr 09/29/18 19:45 09/30/18 16:31 Sodium Chloride 0.9% IV 09/30/18 19:44 150 mls/hr .[id number] [facility] Administration Pantoprazole Sodium 40 mg 09/30/18 09:00 09/30/18 09:17 Protonix Inj IVP 40 mg DAILY [facility] Administration - Patient Studies Lab Studies: Microbiology Studies 09/29/18 08:30 Gram Stain - Final Coccyx Wound Culture - Final Corynebacterium Species 09/29/18 08:20 Urine Culture - Preliminary Urine,Catheterized Gram Negative Iain 09/29/18 08:20 Blood Culture - Preliminary Blood Gram Negative Iain Gram Stain - Final 09/29/18 07:30 Blood Culture - Preliminary Blood Gram Negative Iain Gram Stain - Final Lab Studies 09/30/18 09/30/18 09/30/18 Range/Units 13:03 11:50 05:00 WBC 26.0 H (4.8-10.8) K/uL RBC 3.09 L (4.40-5.90) Mil/uL Hgb 8.8 L (12.0-18.0) g/dL Hct 27.8 L (35.0-51.0) % MCV 89.7 (80.0-94.0) fl MCH 28.5 (27.0-31.0) pg MCHC 31.8 L (33.0-37.0) g/dL RDW 15.7 H (11.5-14.5) % Plt Count 247 (130-400) K/uL MPV 9.0 (7.2-11.7) fl Neut % (Auto) 91.0 H (50.0-75.0) % Lymph % (Auto) 4.0 L (20.0-40.0) % [place] % (Auto) 4.0 (0.0-10.0) % Eos % (Auto) 0.8 (0.0-4.0) % Baso % (Auto) 0.2 (0.0-2.0) % Neut # (Auto) 23.6 H (1.8-7.0) K/uL Lymph # (Auto) 1.0 (1.0-4.3) K/uL [place] # (Auto) 1.0 H (0.0-0.8) K/uL Eos # (Auto) 0.2 (0.0-0.7) K/uL Baso # (Auto) 0.0 (0.0-0.2) K/uL Neutrophils % (Manual) 82 H (42-75) % Band Neutrophils % 4 H (0-2) % Lymphocytes % (Manual) 6 L (20-50) % Monocytes % (Manual) 8 (0-10) % Toxic Granulation Present Platelet Estimate Normal (NORMAL) Hypochromasia (manual) Slight Anisocytosis (manual) Slight Ovalocytes Slight Sodium (132-148) mmol/l Potassium (3.6-5.0) MMOL/L Chloride (98-107) mmol/L Carbon Dioxide (22-30) mmol/L Anion Gap (10-20) BUN (9-20) mg/dl Creatinine (0.8-1.5) mg/dl Est GFR ( Amer) Est GFR (Non-Af Amer) POC Glucose (mg/dL) 48 L (65-110) mg/dL Random Glucose (75-110) mg/dL Calcium (8.4-10.2) mg/dL Total Bilirubin 0.6 (0.2-1.3) mg/dl Direct Bilirubin 0.4 (0.0-0.4) mg/ml AST 922 H D (17-59) U/L ALT 429 H D (21-72) U/L Alkaline Phosphatase 293 H (38-126) U/L Total Protein 5.9 L (6.3-8.2) G/DL Albumin 2.1 L (3.5-5.0) g/dL Globulin 3.8 (2.2-3.9) gm/dL Albumin/Globulin Ratio 0.6 L (1.0-2.1) Procalcitonin (0.19-0.49) NG/ML C. difficile Ag & Toxin (NEGATIVE) Hepatitis A IgM Ab (NEGATIVE) Hep Bs Antigen (NEGATIVE) Hep B Core IgM Ab (NEGATIVE) Hepatitis C Antibody (NEGATIVE) 09/30/18 09/30/18 09/29/18 Range/Units 05:00 05:00 18:31 WBC 29.2 H D (4.8-10.8) K/uL RBC 3.24 L (4.40-5.90) Mil/uL Hgb 9.2 L (12.0-18.0) g/dL Hct 29.3 L (35.0-51.0) % MCV 90.6 D (80.0-94.0) fl MCH 28.3 (27.0-31.0) pg MCHC 31.2 L (33.0-37.0) g/dL RDW 15.8 H (11.5-14.5) % Plt Count 252 (130-400) K/uL MPV (7.2-11.7) fl Neut % (Auto) (50.0-75.0) % Lymph % (Auto) (20.0-40.0) % [place] % (Auto) (0.0-10.0) % Eos % (Auto) (0.0-4.0) % Baso % (Auto) (0.0-2.0) % Neut # (Auto) (1.8-7.0) K/uL Lymph # (Auto) (1.0-4.3) K/uL [place] # (Auto) (0.0-0.8) K/uL Eos # (Auto) (0.0-0.7) K/uL Baso # (Auto) (0.0-0.2) K/uL Neutrophils % (Manual) (42-75) % Band Neutrophils % (0-2) % Lymphocytes % (Manual) (20-50) % Monocytes % (Manual) (0-10) % Toxic Granulation Platelet Estimate (NORMAL) Hypochromasia (manual) Anisocytosis (manual) Ovalocytes Sodium 146 (132-148) mmol/l Potassium 3.8 (3.6-5.0) MMOL/L Chloride 122 H (98-107) mmol/L Carbon Dioxide 18 L (22-30) mmol/L Anion Gap 10 (10-20) BUN 24 H (9-20) mg/dl Creatinine 1.3 (0.8-1.5) mg/dl Est GFR ( Amer) > 60 Est GFR (Non-Af Amer) 53 POC Glucose (mg/dL) (65-110) mg/dL Random Glucose 47 L (75-110) mg/dL Calcium 6.7 L (8.4-10.2) mg/dL Total Bilirubin (0.2-1.3) mg/dl Direct Bilirubin (0.0-0.4) mg/ml AST (17-59) U/L ALT (21-72) U/L Alkaline Phosphatase (38-126) U/L Total Protein (6.3-8.2) G/DL Albumin (3.5-5.0) g/dL Globulin (2.2-3.9) gm/dL Albumin/Globulin Ratio (1.0-2.1) Procalcitonin (0.19-0.49) NG/ML C. difficile Ag & Toxin Negative (NEGATIVE) Hepatitis A IgM Ab (NEGATIVE) Hep Bs Antigen (NEGATIVE) Hep B Core IgM Ab (NEGATIVE) Hepatitis C Antibody (NEGATIVE) 09/29/18 09/29/18 Range/Units 17:28 17:28 WBC (4.8-10.8) K/uL RBC (4.40-5.90) Mil/uL Hgb (12.0-18.0) g/dL Hct (35.0-51.0) % MCV (80.0-94.0) fl MCH (27.0-31.0) pg MCHC (33.0-37.0) g/dL RDW (11.5-14.5) % Plt Count (130-400) K/uL MPV (7.2-11.7) fl Neut % (Auto) (50.0-75.0) % Lymph % (Auto) (20.0-40.0) % [place] % (Auto) (0.0-10.0) % Eos % (Auto) (0.0-4.0) % Baso % (Auto) (0.0-2.0) % Neut # (Auto) (1.8-7.0) K/uL Lymph # (Auto) (1.0-4.3) K/uL [place] # (Auto) (0.0-0.8) K/uL Eos # (Auto) (0.0-0.7) K/uL Baso # (Auto) (0.0-0.2) K/uL Neutrophils % (Manual) (42-75) % Band Neutrophils % (0-2) % Lymphocytes % (Manual) (20-50) % Monocytes % (Manual) (0-10) % Toxic Granulation Platelet Estimate (NORMAL) Hypochromasia (manual) Anisocytosis (manual) Ovalocytes Sodium (132-148) mmol/l Potassium (3.6-5.0) MMOL/L Chloride (98-107) mmol/L Carbon Dioxide (22-30) mmol/L Anion Gap (10-20) BUN (9-20) mg/dl Creatinine (0.8-1.5) mg/dl Est GFR ( Amer) Est GFR (Non-Af Amer) POC Glucose (mg/dL) (65-110) mg/dL Random Glucose (75-110) mg/dL Calcium (8.4-10.2) mg/dL Total Bilirubin (0.2-1.3) mg/dl Direct Bilirubin (0.0-0.4) mg/ml AST (17-59) U/L ALT (21-72) U/L Alkaline Phosphatase (38-126) U/L Total Protein (6.3-8.2) G/DL Albumin (3.5-5.0) g/dL Globulin (2.2-3.9) gm/dL Albumin/Globulin Ratio (1.0-2.1) Procalcitonin > 200.00 H (0.19-0.49) NG/ML C. difficile Ag & Toxin (NEGATIVE) Hepatitis A IgM Ab Negative (NEGATIVE) Hep Bs Antigen Negative (NEGATIVE) Hep B Core IgM Ab Negative (NEGATIVE) Hepatitis C Antibody Negative (NEGATIVE) Laboratory Results - last 24 hr 09/29/18 09/29/18 09/29/18 17:28 17:28 18:31 WBC RBC Hgb Hct MCV MCH MCHC RDW Plt Count MPV Neut % (Auto) Lymph % (Auto) [place] % (Auto) Eos % (Auto) Baso % (Auto) Neut # (Auto) Lymph # (Auto) [place] # (Auto) Eos # (Auto) Baso # (Auto) Neutrophils % (Manual) Band Neutrophils % Lymphocytes % (Manual) Monocytes % (Manual) Toxic Granulation Platelet Estimate Hypochromasia (manual) Anisocytosis (manual) Ovalocytes Sodium Potassium Chloride Carbon Dioxide Anion Gap BUN Creatinine Est GFR ( Amer) Est GFR (Non-Af Amer) POC Glucose (mg/dL) Random Glucose Calcium Total Bilirubin Direct Bilirubin AST ALT Alkaline Phosphatase Total Protein Albumin Globulin Albumin/Globulin Ratio Procalcitonin > 200.00 H C. difficile Ag & Toxin Negative Hepatitis A IgM Ab Negative Hep Bs Antigen Negative Hep B Core IgM Ab Negative Hepatitis C Antibody Negative 09/30/18 09/30/18 09/30/18 05:00 05:00 05:00 WBC 29.2 H D RBC 3.24 L Hgb 9.2 L Hct 29.3 L MCV 90.6 D MCH 28.3 MCHC 31.2 L RDW 15.8 H Plt Count 252 MPV Neut % (Auto) Lymph % (Auto) [place] % (Auto) Eos % (Auto) Baso % (Auto) Neut # (Auto) Lymph # (Auto) [place] # (Auto) Eos # (Auto) Baso # (Auto) Neutrophils % (Manual) Band Neutrophils % Lymphocytes % (Manual) Monocytes % (Manual) Toxic Granulation Platelet Estimate Hypochromasia (manual) Anisocytosis (manual) Ovalocytes Sodium 146 Potassium 3.8 Chloride 122 H Carbon Dioxide 18 L Anion Gap 10 BUN 24 H Creatinine 1.3 Est GFR ( Amer) > 60 Est GFR (Non-Af Amer) 53 POC Glucose (mg/dL) Random Glucose 47 L Calcium 6.7 L Total Bilirubin 0.6 Direct Bilirubin 0.4 AST 922 H D ALT 429 H D Alkaline Phosphatase 293 H Total Protein 5.9 L Albumin 2.1 L Globulin 3.8 Albumin/Globulin Ratio 0.6 L Procalcitonin C. difficile Ag & Toxin Hepatitis A IgM Ab Hep Bs Antigen Hep B Core IgM Ab Hepatitis C Antibody 09/30/18 09/30/18 11:50 13:03 WBC 26.0 H RBC 3.09 L Hgb 8.8 L Hct 27.8 L MCV 89.7 MCH 28.5 MCHC 31.8 L RDW 15.7 H Plt Count 247 MPV 9.0 Neut % (Auto) 91.0 H Lymph % (Auto) 4.0 L [place] % (Auto) 4.0 Eos % (Auto) 0.8 Baso % (Auto) 0.2 Neut # (Auto) 23.6 H Lymph # (Auto) 1.0 [place] # (Auto) 1.0 H Eos # (Auto) 0.2 Baso # (Auto) 0.0 Neutrophils % (Manual) 82 H Band Neutrophils % 4 H Lymphocytes % (Manual) 6 L Monocytes % (Manual) 8 Toxic Granulation Present Platelet Estimate Normal Hypochromasia (manual) Slight Anisocytosis (manual) Slight Ovalocytes Slight Sodium Potassium Chloride Carbon Dioxide Anion Gap BUN Creatinine Est GFR ( Amer) Est GFR (Non-Af Amer) POC Glucose (mg/dL) 48 L Random Glucose Calcium Total Bilirubin Direct Bilirubin AST ALT Alkaline Phosphatase Total Protein Albumin Globulin Albumin/Globulin Ratio Procalcitonin C. difficile Ag & Toxin Hepatitis A IgM Ab Hep Bs Antigen Hep B Core IgM Ab Hepatitis C Antibody Fingerstick Blood Sugar Results: 55 Assessment/Plan (1) Septic shock Current Visit: Yes Status: Acute Priority: High Comment: The source of infection likely urinary tract infection Continue with ICU for hemodynamic monitoring Continue IV hydration and volume resuscitation Continue IV vancomycin and IV Zosyn Maintain map [id number] Might have to use vasopressors (2) Decubital ulcer Current Visit: Yes Status: Acute Priority: High Comment: Wound care consult appretiated Wound Vac in place (3) Altered mental status Current Visit: Yes Status: Acute Priority: High Comment: Altered mental status from toxic metabolic encephalopathy Improved mental status (4) UTI (urinary tract infection) Current Visit: Yes Status: Acute Priority: High
[2018-10-01 07:09] LABS: HEMOGLOBIN 8.5 g/dL (12.0-18.0); MEAN CELL VOLUME 90.7 fl (80.0-94.0); MEAN CORPUSCULAR HEMOGLOBIN 28.6 pg (27.0-31.0); MEAN CORPUSCULAR HGB CONC 31.6 g/dL (33.0-37.0); RBC 2.98 Mil/uL (4.40-5.90); RED CELL DISTRIBUTION WIDTH 15.8 % (11.5-14.5); WHITE BLOOD COUNT 21.7 K/uL (4.8-10.8)
[2018-10-01] MEDS ORDERED: Pneumococcal 23-Valent Vaccine IM ONE (07:28)
[2018-10-01 07:31] LABS: BLOOD UREA NITROGEN 28 mg/dl (9-20); CALCIUM 6.5 mg/dL (8.4-10.2); GFR NON-AFRICAN AMERICAN 53
[2018-10-01 12:30] LABS: VENOUS BLOOD GAS BASE EXCESS -8.7 mmol/L (0.0-2.0); VENOUS BLOOD GAS PCO2 26 mmHg (40-60); VENOUS BLOOD GAS PO2 43 mm/Hg (30-55); VENOUS BLOOD PH 7.38 (7.32-7.43)
[2018-10-01] MEDS: Lactated Ringer's 1,000 ML IV SCH ×2 (12:35→21:15)
--- NOTE | 2018-10-01 12:47 | CP.CCUPN ---
CCU Subjective - Physician Review Subjective (Free Text): Lying in bed in semi contracted state, eyes closed, grimaces to deep pain, non- verbal, not following any commands nor is interactive. On 2 LPM NC with 98% SPO@, has been hypothermic with T as low as 96F. Afebrile, BP 128/61, HR 75, RR 22, 98% on NC. No fever spikes since admission. Other vitals and I/O's reviewed. Still oliguric, fluid balance 24H = positive 4.1 L. ROS: No other pertinent negs or positives on 10+ system review obtainable due to non-verbal condition. PMSFH: All other Nursing and physician documentation reviewed to date; no new pertinent info noted relevant to current medical problems. EXAM- HEENT: no icterus, no gaze preference, pupils with normal reactivity noted, no nystagmus NECK: no JVD visible, supple, carotids equal upstroke bilat/no bruit, Left IJV TLC intact. CHEST: clear BS bilat, no wheezes audible HEART: regular, distant, S1S2, no rubs ABD: soft, no distension, no focal tenderness, no tympany, no guarding, no organomegaly, BS hypoactive. EXT: trace LE edema, no mottling; no calf tenderness or palpable cords, distal pulses intact and symmetrical, no cyanosis. NEURO: + tone, withdraws to pain stimuli SKIN: no rashes, warm and dry LABS: WBC= 21.7 HGB= 8.5 PLTs= 248K Na= 149 K= 3.1 CL= 120 HCO3= 16 BUN/Cr= 28/1.3 BS= 106 AST = 922 ALT = 429 Urine Cx and Blood Cx = +E. cloacae Sacral Wound Cx = Corynebacterium+ IMPRESSION / MAJOR PROBLEMS NOW: 1. Enterobacter Bacteremia 2. Sepsis / Metabolic Encephalopathy 3. Azotemia / Dehydation 4. r/Io Ischemic hepatitis 5. Infected Sacral Decubitus 6. Chronic Disease Anemia 7. H/o Parkinsons disease; Dementia PLAN: 1. Ongoing abx coverage, E. cloacae sensitive to Zosyn. 2. Would change IVFs to LR; hyperchlremic MAC evident now. 3. Repeat serial Lactates, last level = 5.3 on September 29 4. K Supplement; watch serum Na levels. Add Tap Water via NGT. 5. LFTs improving, check repeat Coags, last set from September 29 reviewed. Check serum ammonia. 6. Hold Lexapro. 7. Clarify any Advance Directives.
[2018-10-01] MEDS: Potassium CL 10mEq/100ml 100 ML IVPB SCH ×3 (12:52→14:58)
--- NOTE | 2018-10-01 13:17 | CP.PCM.PN ---
Subjective - Date & Time of Evaluation Date of Evaluation: 10/01/18 Time of Evaluation: 09:00 - Subjective Subjective: events noted growing enterobacter in blood and urine Objective - Vital Signs/Intake and Output Vital Signs (last 24 hours): Temp Pulse Resp BP Pulse Ox 97.7 F 74 15 124/87 100 10/01/18 12:00 10/01/18 12:00 10/01/18 12:00 10/01/18 12:00 10/01/18 12:00 Intake and Output: 10/01/18 10/01/18 06:59 18:59 Intake Total 2480 1360 Output Total 150 Balance 2330 1360 - Medications Medications: Current Medications Acetaminophen (Tylenol 325mg Tab) 650 mg PO Q6 PRN PRN Reason: Fever >100.4 F Atorvastatin Calcium (Lipitor) 20 mg PO DAILY [facility] Last Admin: 10/01/18 08:29 Dose: 20 mg Carbidopa/Levodopa (Sinemet) 1 tab PO TID [facility] Last Admin: 10/01/18 12:53 Dose: 1 tab Clopidogrel Bisulfate (Plavix) 75 mg PO DAILY [facility] Last Admin: 10/01/18 08:30 Dose: 75 mg Escitalopram Oxalate (Lexapro) 10 mg PO DAILY [facility] Last Admin: 10/01/18 08:29 Dose: 10 mg Famotidine (Pepcid) 20 mg PO BID [facility] Last Admin: 10/01/18 08:29 Dose: 20 mg Ferrous Sulfate (Feosol) 325 mg PO BID [facility] Last Admin: 10/01/18 08:29 Dose: 325 mg Heparin Sodium (Porcine) (Heparin) 5,000 units SC Q8 [facility]; Protocol Last Admin: 10/01/18 08:29 Dose: 5,000 units Vancomycin HCl 750 mg/ Sodium (Chloride) 250 mls @ 166.667 mls/hr IVPB Q12H [facility]; Protocol Last Admin: 10/01/18 05:54 Dose: 166.667 mls/hr Piperacillin Sod/Tazobactam (Sod 2.25 gm/ Sodium Chloride) 100 mls @ 100 mls/hr IVPB Q8 [facility]; Protocol Last Admin: 10/01/18 08:32 Dose: 100 mls/hr Lactated Ringer's (Lactated Ringer's) 1,000 mls @ 125 mls/hr IV .Q8H [facility] Last Admin: 10/01/18 12:35 Dose: 125 mls/hr Potassium Chloride (Potassium Chloride 10 Meq/100 Ml) 100 mls @ 100 mls/hr IVPB Q1 [facility] Stop: 10/01/18 14:59 Last Admin: 10/01/18 12:52 Dose: 100 mls/hr Pantoprazole Sodium (Protonix Inj) 40 mg IVP DAILY [facility] Last Admin: 10/01/18 08:32 Dose: 40 mg - Labs Labs: 10/01/18 05:20 10/01/18 06:00 PT 15.7 Seconds (9.8-13.1) H 09/29/18 07:30 INR 1.4 09/29/18 07:30 APTT 29.6 Seconds (25.6-37.1) 09/29/18 07:30 - Constitutional Appears: Confused, Cachectic, Chronically Ill - Head Exam Head Exam: NORMOCEPHALIC - Eye Exam Eye Exam: absent: Scleral icterus Pupil Exam: NORMAL ACCOMODATION - ENT Exam ENT Exam: Mucous Membranes Dry - Neck Exam Neck Exam: absent: Lymphadenopathy - Respiratory Exam Respiratory Exam: Decreased Breath Sounds, Rhonchi - Cardiovascular Exam Cardiovascular Exam: REGULAR RHYTHM, +S1, +S2 - GI/Abdominal Exam GI & Abdominal Exam: Distended, Soft - Rectal Exam Rectal Exam: Deferred - Exam Exam: NORMAL INSPECTION - Extremities Exam Extremities Exam: Pedal Edema Additional comments: contracted - Back Exam Back Exam: absent: CVA tenderness (L), CVA tenderness (R) - Neurological Exam Neurological Exam: Altered - Psychiatric Exam Psychiatric exam: Depressed - Skin Skin Exam: Dry Assessment and Plan (1) Decubital ulcer Status: Acute (2) Fever in adult Status: Acute (3) Sepsis Status: Acute (4) Septic shock Status: Acute (5) Severe sepsis Status: Acute (6) UTI (urinary tract infection) Status: Acute - Assessment and Plan (Free Text) Assessment: 78 year old male with past history of Parkinson's disease, hypertension, and CVA admitted to ICU with sepsis and septic shock from infected wounds at home Patient is bed-bound at baseline with left-sided paralysis and decubitus ulcer that is currently treated at a wound clinic. . Additionally, patient has an indwelling kwan catheter in place IV antibiotics will be adjusted prognosis poor from outset
[2018-10-01] MEDS: Meropenem 1 GM in Sodium Chloride 0.9% 100 ML IVPB SCH (16:17)
[2018-10-01] MEDS ORDERED: Potassium CL 10mEq/100ml 100 ML IVPB SCH (18:00)
--- NOTE | 2018-10-01 21:37 | CP.PCM.PN ---
Subjective - Date & Time of Evaluation Date of Evaluation: 10/01/18 Time of Evaluation: 21:36 - Subjective Subjective: pt remains minimally responsive w/ left hemiparesis. no f/c, n/v/d. bw and c/s noted. all consults appriciated. Objective - Vital Signs/Intake and Output Vital Signs (last 24 hours): Temp Pulse Resp BP Pulse Ox 97.8 F 65 14 128/83 100 10/01/18 16:00 10/01/18 18:00 10/01/18 18:00 10/01/18 18:00 10/01/18 18:00 Intake and Output: 10/01/18 10/02/18 18:59 06:59 Intake Total 3120 Output Total 400 Balance 2720 - Medications Medications: Current Medications Acetaminophen (Tylenol 325mg Tab) 650 mg PO Q6 PRN PRN Reason: Fever >100.4 F Atorvastatin Calcium (Lipitor) 20 mg PO DAILY [facility] Last Admin: 10/01/18 08:29 Dose: 20 mg Carbidopa/Levodopa (Sinemet) 1 tab PO TID [facility] Last Admin: 10/01/18 16:18 Dose: 1 tab Clopidogrel Bisulfate (Plavix) 75 mg PO DAILY [facility] Last Admin: 10/01/18 08:30 Dose: 75 mg Escitalopram Oxalate (Lexapro) 10 mg PO DAILY [facility] Last Admin: 10/01/18 08:29 Dose: 10 mg Famotidine (Pepcid) 20 mg PO BID [facility] Last Admin: 10/01/18 16:18 Dose: 20 mg Ferrous Sulfate (Feosol) 325 mg PO BID [facility] Last Admin: 10/01/18 16:17 Dose: 325 mg Heparin Sodium (Porcine) (Heparin) 5,000 units SC Q8 [facility]; Protocol Last Admin: 10/01/18 16:17 Dose: 5,000 units Vancomycin HCl 750 mg/ Sodium (Chloride) 250 mls @ 166.667 mls/hr IVPB Q12H [facility]; Protocol Last Admin: 10/01/18 18:16 Dose: 166.667 mls/hr Lactated Ringer's (Lactated Ringer's) 1,000 mls @ 125 mls/hr IV .Q8H [facility] Last Admin: 10/01/18 21:15 Dose: 125 mls/hr Meropenem 1 gm/ Sodium (Chloride) 100 mls @ 100 mls/hr IVPB Q8 [facility]; Protocol Last Admin: 10/01/18 16:17 Dose: 100 mls/hr Pantoprazole Sodium (Protonix Inj) 40 mg IVP DAILY [facility] Last Admin: 10/01/18 08:32 Dose: 40 mg - Labs Labs: 10/01/18 05:20 10/01/18 06:00 PT 15.7 Seconds (9.8-13.1) H 09/29/18 07:30 INR 1.4 09/29/18 07:30 APTT 29.6 Seconds (25.6-37.1) 09/29/18 07:30 - Constitutional Appears: Non-toxic, Chronically Ill - Head Exam Head Exam: ATRAUMATIC, NORMAL INSPECTION, NORMOCEPHALIC - Eye Exam Eye Exam: EOMI, Normal appearance, PERRL Pupil Exam: NORMAL ACCOMODATION, PERRL - ENT Exam ENT Exam: Mucous Membranes Moist, Normal Exam - Neck Exam Neck Exam: Full ROM, Normal Inspection. absent: Lymphadenopathy - Respiratory Exam Respiratory Exam: Clear to Ausculation Bilateral, NORMAL BREATHING PATTERN - Cardiovascular Exam Cardiovascular Exam: REGULAR RHYTHM, RRR, +S1, +S2. absent: Murmur - GI/Abdominal Exam GI & Abdominal Exam: Soft, Normal Bowel Sounds. absent: Tenderness - Extremities Exam Extremities Exam: Full ROM, Normal Capillary Refill, Normal Inspection. absent: Joint Swelling, Pedal Edema - Back Exam Back Exam: NORMAL INSPECTION - Neurological Exam Neurological Exam: Abnormal Gait, Altered, Awake, CN II-XII Intact - Psychiatric Exam Psychiatric exam: Normal Affect, Normal Mood - Skin Skin Exam: Dry, Intact, Normal Color, Warm Assessment and Plan (1) DVT prophylaxis Assessment & Plan: scd trudy e hose heparin Status: Acute (2) Septic shock Assessment & Plan: icu care iv anbx-merrem, vanco id c/s noted Status: Acute (3) UTI (urinary tract infection) Assessment & Plan: vanco,merrem ivf changed kwna c/s noted Status: Acute
[2018-10-02] MEDS: Meropenem 1 GM in Sodium Chloride 0.9% 100 ML IVPB SCH ×3 (00:14→16:19)
[2018-10-02 05:27] LABS: BASO % 0.3 % (0.0-2.0); EOS # 0.1 K/uL (0.0-0.7); EOS % 1.2 % (0.0-4.0); HEMOGLOBIN 8.5 g/dL (12.0-18.0); LYMPH # 1.1 K/uL (1.0-4.3); LYMPH % 11.1 % (20.0-40.0); MEAN CELL VOLUME 90.1 fl (80.0-94.0); MEAN CORPUSCULAR HEMOGLOBIN 29.5 pg (27.0-31.0); MEAN CORPUSCULAR HGB CONC 32.7 g/dL (33.0-37.0); MEAN PLATELET VOLUME 9.5 fl (7.2-11.7); MONO # 0.4 K/uL (0.0-0.8); MONO % 3.9 % (0.0-10.0); NEUT # 8.6 K/uL (1.8-7.0); NEUT % 83.5 % (50.0-75.0); NRBC % 0.1 % (0.0-0.0); RBC 2.89 Mil/uL (4.40-5.90); RED CELL DISTRIBUTION WIDTH 15.8 % (11.5-14.5); WHITE BLOOD COUNT 10.3 K/uL (4.8-10.8)
[2018-10-02 05:29] LABS: INR 1.1; PROTHROMBIN TIME 12.4 Seconds (9.8-13.1)
[2018-10-02] MEDS: Lactated Ringer's 1,000 ML IV SCH ×2 (05:30→14:16)
[2018-10-02 05:32] LABS: PARTIAL THROMBOPLASTIN TIME 34.2 Seconds (25.6-37.1)
[2018-10-02 05:37] LABS: ALB/GLOB RATIO 0.5 (1.0-2.1); ALBUMIN 1.7 g/dL (3.5-5.0); ALT/SGPT 111 U/L (21-72); AST/SGOT 114 U/L (17-59); BLOOD UREA NITROGEN 26 mg/dl (9-20); CALCIUM 6.8 mg/dL (8.4-10.2); GFR NON-AFRICAN AMERICAN > 60
[2018-10-02] MEDS ORDERED: Magnesium Sulfate 1 gm in D5W 1 GM/100 ML BAG IVPB ONE (06:47)
[2018-10-02] MEDS ORDERED: Potassium Phosphate 30 MMOLE in Dextrose 5% In Water 250 ML IV ONE (07:00)
--- NOTE | 2018-10-02 09:16 | CON ---
DATE: 09/30/2018 REFERRING DOCTOR: Dixon Fitzgerald DPM REASON FOR CONSULTATION: Elevated LFTs. HISTORY OF PRESENT ILLNESS: This is a pleasant but demented 78-year-old man, came in with septic shock, unable to give history. History is obtained from the chart and staff. The patient has CVA. Currently lying in bed, nonresponsive, in no apparent distress. PAST MEDICAL HISTORY: As above. PAST SURGICAL HISTORY: As above. MEDICATIONS: Reviewed. REVIEW OF SYSTEMS: All other systems have been obtained. PHYSICAL EXAMINATION: GENERAL: This is a pleasant elderly appearing male, lying in bed comfortable, in no apparent distress. VITAL SIGNS: Here in the hospital are grossly unremarkable. HEENT: Head: Normocephalic and atraumatic. Eyes: Pupils equally reactive to light bilaterally. No conjunctival pallor or icterus. NECK: Supple. Normal range of motion. No lymphadenopathy appreciated. LUNGS: Coarse breath sounds bilaterally. HEART: S1 and S2. Regular rate and rhythm. No murmur appreciated. ABDOMEN: Soft, nontender. Bowel sounds present. No rebound. No guarding. RECTAL: Deferred. EXTREMITIES: Pulses felt bilaterally. The patient is contracted. NEUROLOGIC: A and O x1. Responds to pain. LABORATORY DATA: Labs and radiology have been reviewed. WBC is up to 29.3, hemoglobin 9.3, hematocrit 29.3, platelet count is normal. Neutrophils 80% bandemia. Urine is turbid. Lactic acid is 5.3. AST and ALT are improving from 992 and 429. Alk phos is down to 93. Total bili is normal. Procalcitonin is over 200. ASSESSMENT AND PLAN: This is a 78-year-old man with what looks like sepsis likely from urine sources. Pressor support and antibiotics for now. Elevation of liver function tests are more likely secondary to sepsis versus infection versus hypotension. Aggressive intravenous hydration. Consider ultrasound if no improvement. Trend liver function tests. Prognosis is guarded. Thank you for the consult. Ten Young MD/ PhD cc: Dixon Fitzgerald DPM [facility] # [id number]
--- NOTE | 2018-10-02 09:33 | CP.PCM.PN ---
Subjective - Date & Time of Evaluation Date of Evaluation: 10/02/18 Time of Evaluation: 09:31 - Subjective Subjective: pt remains as assessed. no f/c, n/v/d. bw and consults reviewed. at bedside. anbx to continue. Objective - Vital Signs/Intake and Output Vital Signs (last 24 hours): Temp Pulse Resp BP Pulse Ox 98.1 F 54 L 16 144/86 100 10/02/18 08:00 10/02/18 08:00 10/02/18 08:00 10/02/18 08:00 10/02/18 08:00 Intake and Output: 10/02/18 10/02/18 06:59 18:59 Intake Total 1375 Balance 1375 - Medications Medications: Current Medications Acetaminophen (Tylenol 325mg Tab) 650 mg PO Q6 PRN PRN Reason: Fever >100.4 F Atorvastatin Calcium (Lipitor) 20 mg PO DAILY [facility] Last Admin: 10/02/18 09:03 Dose: 20 mg Carbidopa/Levodopa (Sinemet) 1 tab PO TID [facility] Last Admin: 10/02/18 09:04 Dose: 1 tab Clopidogrel Bisulfate (Plavix) 75 mg PO DAILY [facility] Last Admin: 10/02/18 09:04 Dose: 75 mg Escitalopram Oxalate (Lexapro) 10 mg PO DAILY [facility] Last Admin: 10/01/18 08:29 Dose: 10 mg Famotidine (Pepcid) 20 mg PO BID [facility] Last Admin: 10/02/18 09:04 Dose: 20 mg Ferrous Sulfate (Feosol) 325 mg PO BID [facility] Last Admin: 10/02/18 09:03 Dose: 325 mg Heparin Sodium (Porcine) (Heparin) 5,000 units SC Q8 [facility]; Protocol Last Admin: 10/02/18 09:03 Dose: 5,000 units Vancomycin HCl 750 mg/ Sodium (Chloride) 250 mls @ 166.667 mls/hr IVPB Q12H [facility]; Protocol Last Admin: 10/02/18 06:56 Dose: Not Given Lactated Ringer's (Lactated Ringer's) 1,000 mls @ 125 mls/hr IV .Q8H [facility] Last Admin: 10/02/18 05:30 Dose: 125 mls/hr Meropenem 1 gm/ Sodium (Chloride) 100 mls @ 100 mls/hr IVPB Q8 [facility]; Protocol Last Admin: 10/02/18 08:32 Dose: 100 mls/hr Potassium Phosphate 30 mmole/ (Dextrose) 260 mls @ 84 mls/hr IV .Q3H6M ONE Stop: 10/02/18 10:05 Pantoprazole Sodium (Protonix Inj) 40 mg IVP DAILY [facility] Last Admin: 10/01/18 08:32 Dose: 40 mg - Labs Labs: 10/02/18 04:45 10/02/18 04:45 PT 12.4 Seconds (9.8-13.1) 10/02/18 04:45 INR 1.1 10/02/18 04:45 APTT 34.2 Seconds (25.6-37.1) 10/02/18 04:45 - Constitutional Appears: Non-toxic, No Acute Distress, Chronically Ill - Head Exam Head Exam: ATRAUMATIC, NORMAL INSPECTION, NORMOCEPHALIC - Eye Exam Eye Exam: EOMI, Normal appearance, PERRL Pupil Exam: NORMAL ACCOMODATION, PERRL - ENT Exam ENT Exam: Mucous Membranes Moist, Normal Exam - Neck Exam Neck Exam: Full ROM, Normal Inspection. absent: Lymphadenopathy - Respiratory Exam Respiratory Exam: Clear to Ausculation Bilateral, NORMAL BREATHING PATTERN - Cardiovascular Exam Cardiovascular Exam: REGULAR RHYTHM, RRR, +S1, +S2. absent: Murmur - GI/Abdominal Exam GI & Abdominal Exam: Soft, Normal Bowel Sounds. absent: Tenderness - Extremities Exam Extremities Exam: Full ROM, Normal Capillary Refill, Normal Inspection. absent: Joint Swelling, Pedal Edema - Back Exam Back Exam: NORMAL INSPECTION - Neurological Exam Neurological Exam: Abnormal Gait, Alert, Awake, CN II-XII Intact - Psychiatric Exam Psychiatric exam: Normal Affect, Normal Mood - Skin Skin Exam: Dry, Intact, Normal Color, Warm Assessment and Plan (1) Decubital ulcer Assessment & Plan: cont anbx wound care wound rn c/s noted Status: Acute (2) DVT prophylaxis Assessment & Plan: scd nad ae hose heparin Status: Acute (3) CVA (cerebral vascular accident) Assessment & Plan: pt/ot supportive care Status: Acute (4) Parkinson disease Assessment & Plan: home meds Status: Acute (5) Septic shock Assessment & Plan: likely urine sournce procalcitonin noted blood c/s iv anbx id icu care Status: Acute (6) UTI (urinary tract infection) Assessment & Plan: urine c/s noted id anbx noted Status: Acute
--- NOTE | 2018-10-02 09:39 | PQF ---
PROVIDER RESPONSE TEXT: Stage 4 decub REVIEWER QUERY TEXT: Conflicting Documentation Clarification Stage 4 sacral pressure ulcer is documented by the wound care technician <OBX.5.1><OBX.5.1.1>H</OBX.5.1.1><OBX.5.1.2>P : In the body sacral decub stage 3-4 is listed. Under t he Present on admission section: Decubitus ulcer stage III is listed.</OBX.5.1.2></OBX.5.1> Please clarify which stage of the sacral ulcer should be coded. A single mention or documentation of multiple diagnoses for the same clinical presentation appears in the record. Please clarify the diagnosis/diagnoses. Please also document if the condition is: -- Confirmed and current -- Confirmed, treated and resolved -- Ruled out -- Other, please specify The patient's Clinical Indicators include: Stage 4 sacral pressure ulcer is documented by the wound care technician <OBX.5.1><OBX.5.1.1>H</OBX.5.1.1><OBX.5.1.2>P : In the body sacral decub stage 3-4 is listed. Under t he Present on admission section: Decubitus ulcer stage III is listed.</OBX.5.1.2></OBX.5.1> Wound vac applied. Query created by: Crystal Buckner on 10/01/2018 8:41 AM Electronically signed by: Sammy Fitzgerald APN 10/02/2018 9:36 AM
--- NOTE | 2018-10-02 09:39 | PQF ---
PROVIDER RESPONSE TEXT: Uti appears kwan cath related REVIEWER QUERY TEXT: Documentation Clarification Your help is requested in clarifying the following clinical documentation, if you can please further specify in the medical record and discharge summary. Please clarify if the UTI is kwan catheter related or not or other explanation. The patient's Clinical Indicators include: Admitted with a kwan catheter. DX: Sepsis, Septic Shock, UTI, Decubitus Ulcer. BLOOD and URINE CS growing Gram negative Rods Coccyx CS: Corynebacterium species RX: IVAB Query created by: Crystal Buckner on 10/01/2018 8:35 AM Electronically signed by: Sammy Fitzgerald APN 10/02/2018 9:36 AM
--- NOTE | 2018-10-02 09:40 | CP.PCM.PN ---
Subjective - Date & Time of Evaluation Date of Evaluation: 10/01/18 Time of Evaluation: 15:30 - Subjective Subjective: no overnight events Objective - Vital Signs/Intake and Output Vital Signs (last 24 hours): Temp Pulse Resp BP Pulse Ox 98.1 F 54 L 16 144/86 100 10/02/18 08:00 10/02/18 08:00 10/02/18 08:00 10/02/18 08:00 10/02/18 08:00 Intake and Output: 10/02/18 10/02/18 06:59 18:59 Intake Total 1375 Balance 1375 - Medications Medications: Current Medications Acetaminophen (Tylenol 325mg Tab) 650 mg PO Q6 PRN PRN Reason: Fever >100.4 F Atorvastatin Calcium (Lipitor) 20 mg PO DAILY [facility] Last Admin: 10/02/18 09:03 Dose: 20 mg Carbidopa/Levodopa (Sinemet) 1 tab PO TID [facility] Last Admin: 10/02/18 09:04 Dose: 1 tab Clopidogrel Bisulfate (Plavix) 75 mg PO DAILY [facility] Last Admin: 10/02/18 09:04 Dose: 75 mg Escitalopram Oxalate (Lexapro) 10 mg PO DAILY [facility] Last Admin: 10/01/18 08:29 Dose: 10 mg Famotidine (Pepcid) 20 mg PO BID [facility] Last Admin: 10/02/18 09:04 Dose: 20 mg Ferrous Sulfate (Feosol) 325 mg PO BID [facility] Last Admin: 10/02/18 09:03 Dose: 325 mg Heparin Sodium (Porcine) (Heparin) 5,000 units SC Q8 [facility]; Protocol Last Admin: 10/02/18 09:03 Dose: 5,000 units Vancomycin HCl 750 mg/ Sodium (Chloride) 250 mls @ 166.667 mls/hr IVPB Q12H [facility]; Protocol Last Admin: 10/02/18 06:56 Dose: Not Given Lactated Ringer's (Lactated Ringer's) 1,000 mls @ 125 mls/hr IV .Q8H [facility] Last Admin: 10/02/18 05:30 Dose: 125 mls/hr Meropenem 1 gm/ Sodium (Chloride) 100 mls @ 100 mls/hr IVPB Q8 [facility]; Protocol Last Admin: 10/02/18 08:32 Dose: 100 mls/hr Potassium Phosphate 30 mmole/ (Dextrose) 260 mls @ 84 mls/hr IV .Q3H6M ONE Stop: 10/02/18 10:05 Pantoprazole Sodium (Protonix Inj) 40 mg IVP DAILY [facility] Last Admin: 10/01/18 08:32 Dose: 40 mg - Labs Labs: 10/02/18 04:45 10/02/18 04:45 PT 12.4 Seconds (9.8-13.1) 10/02/18 04:45 INR 1.1 10/02/18 04:45 APTT 34.2 Seconds (25.6-37.1) 10/02/18 04:45 - Neck Exam Neck Exam: Normal Inspection - Respiratory Exam Respiratory Exam: Rhonchi, NORMAL BREATHING PATTERN - Cardiovascular Exam Cardiovascular Exam: REGULAR RHYTHM - GI/Abdominal Exam GI & Abdominal Exam: Soft, Normal Bowel Sounds Assessment and Plan - Assessment and Plan (Free Text) Assessment: 78 yo male with sepsis trend lft, likely elevated secondary to sepsis
--- NOTE | 2018-10-02 15:18 | CP.CCUPN ---
CCU Subjective - Physician Review Subjective (Free Text): Lying motionless in bed, hands in prayer=folded position, no distress noted, eyes closed, grimaces to deep pain, non-verbal, not following any commands nor is interactive. On 2 LPM NC with 98% SPO2, Temps 97-98, no fever spikes. Afebrile, BP 144/80, HR 55, RR 17, 98% on NC. Other vitals and I/O's reviewed. Still oliguric, fluid balance 24H = positive 4.0 L. ROS: No other pertinent negs or positives on 10+ system review obtainable due to non-verbal condition. PMSFH: All other Nursing and physician documentation reviewed to date; no new pertinent info noted relevant to current medical problems. EXAM- HEENT: no icterus, no gaze preference, pupils with normal reactivity noted, no nystagmus NECK: no JVD visible, supple, carotids equal upstroke bilat/no bruit, Left IJV TLC intact. CHEST: clear BS bilat, no wheezes audible HEART: regular, distant, S1S2, no rubs ABD: soft, no distension, no focal tenderness, no tympany, no guarding, no organomegaly, BS hypoactive. EXT: trace LE edema, no mottling; no calf tenderness or palpable cords, distal pulses intact and symmetrical, no cyanosis. NEURO: + tone, withdraws to pain stimuli SKIN: no rashes, warm and dry LABS: WBC= 10.3 HGB= 8.5 PLTs= 206K Lactate = 1.3 Na= 146 K= 3.5 CL= 119 HCO3= 18 BUN/Cr= 26/1.2 BS= 112 AST = 922 to 114 ALT = 429 to 204 Urine Cx and Blood Cx = +E. cloacae Sacral Wound Cx = Corynebacterium+ IMPRESSION / MAJOR PROBLEMS NOW: 1. Enterobacter Bacteremia 2. Sepsis / Metabolic Encephalopathy 3. Azotemia / Dehydation 4. r/Io Ischemic hepatitis 5. Infected Sacral Decubitus 6. Chronic Disease Anemia 7. H/o Parkinsons disease; Dementia PLAN: 1. Ongoing abx coverage, off Zosyn, on Rubén / Vanco 2. Change IVFs to LR. See orders. 3. Repeat serial Lactates, last level = 5.3 on September 29, now normalized. 4. K Supplement; watch serum Na levels. Add Tap Water via NGT. 5. LFTs improving, repeated Coags are normal, last set from September 29 reviewed; serum ammonia normal. 6. Hold Lexapro. 7. Clarify any Advance Directives.
[2018-10-03] MEDS: Meropenem 1 GM in Sodium Chloride 0.9% 100 ML IVPB SCH ×3 (00:25→16:09)
[2018-10-03] MEDS: Lactated Ringer's 1,000 ML IV SCH ×2 (00:25→08:29)
[2018-10-03 05:58] LABS: HEMOGLOBIN 8.9 g/dL (12.0-18.0); MEAN CELL VOLUME 89.1 fl (80.0-94.0); MEAN CORPUSCULAR HEMOGLOBIN 29.1 pg (27.0-31.0); MEAN CORPUSCULAR HGB CONC 32.6 g/dL (33.0-37.0); RBC 3.06 Mil/uL (4.40-5.90); RED CELL DISTRIBUTION WIDTH 15.8 % (11.5-14.5); WHITE BLOOD COUNT 4.6 K/uL (4.8-10.8)
[2018-10-03 06:17] LABS: BLOOD UREA NITROGEN 21 mg/dl (9-20); CALCIUM 7.2 mg/dL (8.4-10.2); GFR NON-AFRICAN AMERICAN > 60
--- NOTE | 2018-10-03 09:47 | CP.CCUPN ---
CCU Subjective - Physician Review Subjective (Free Text): No new events, overall neuromental status unchanged. On 2 LPM NC with 98% SPO2, Temps 97-98, no fever spikes. Afebrile, BP 149/90, HR 59, RR 17, 100% on NC. Other vitals and I/O's reviewed. Still oliguric, fluid balance 24H = positive 2.5 L. On KR at 125 ml/hr. ROS: No other pertinent negs or positives on 10+ system review obtainable due to non-verbal condition. PMSFH: All other Nursing and physician documentation reviewed to date; no new pertinent info noted relevant to current medical problems. EXAM- HEENT: no icterus, no gaze preference, pupils with normal reactivity noted, no nystagmus NECK: no JVD visible, supple, carotids equal upstroke bilat/no bruit, Left IJV TLC intact. CHEST: clear BS bilat, no wheezes audible HEART: regular, distant, S1S2, no rubs ABD: soft, no distension, no focal tenderness, no tympany, no guarding, no or ganomegaly, BS hypoactive. EXT: trace LE edema, no mottling; no calf tenderness or palpable cords, distal pulses intact and symmetrical, no cyanosis. NEURO: + tone, withdraws to pain stimuli SKIN: no rashes, warm and dry LABS: WBC= 4.6 HGB= 8.9 PLTs= 208K Lactate = 1.3 Na= 141 K= 3.6 CL= 118 HCO3= 20 BUN/Cr= 21/0.7 BS= 112 AST = 922 to 114 ALT = 429 to 204 Urine Cx and Blood Cx = +E. cloacae Sacral Wound Cx = Corynebacterium+ IMPRESSION / MAJOR PROBLEMS NOW: 1. Enterobacter Bacteremia 2. Sepsis / Metabolic Encephalopathy 3. Azotemia / Dehydation 4. r/Io Ischemic hepatitis 5. Infected Sacral Decubitus 6. Chronic Disease Anemia 7. H/o Parkinsons disease; Dementia PLAN: 1. Ongoing abx coverage, off Zosyn, on Rubén / Vanco 2. Could stop IVFs, hydrate via tube feeds.. See orders. 3. Repeat serial Lactates now normalized. 4. K Supplement; watch serum Na levels. Add Tap Water via NGT. 5. LFTs improving, repeated Coags are normal, last set from September 29 reviewed; serum ammonia normal. 6. Hold Lexapro. 7. Needs PICC line. 8 Clarify any Advance Directives. Stable for transfer to regular med/surg bed.
--- NOTE | 2018-10-03 11:25 | CP.PCM.PN ---
Subjective - Date & Time of Evaluation Date of Evaluation: 10/03/18 Time of Evaluation: 11:25 - Subjective Subjective: no overnight events Objective - Vital Signs/Intake and Output Vital Signs (last 24 hours): Temp Pulse Resp BP Pulse Ox 97.9 F 59 L 16 147/92 H 100 10/03/18 08:00 10/03/18 08:00 10/03/18 08:00 10/03/18 08:00 10/03/18 08:00 Intake and Output: 10/03/18 10/03/18 06:59 18:59 Intake Total 1750 920 Output Total 1200 Balance 550 920 - Medications Medications: Current Medications Acetaminophen (Tylenol 325mg Tab) 650 mg PO Q6 PRN PRN Reason: Fever >100.4 F Atorvastatin Calcium (Lipitor) 20 mg PO DAILY [facility] Last Admin: 10/03/18 08:31 Dose: 20 mg Carbidopa/Levodopa (Sinemet) 1 tab PO TID [facility] Last Admin: 10/03/18 08:30 Dose: 1 tab Clopidogrel Bisulfate (Plavix) 75 mg PO DAILY [facility] Last Admin: 10/03/18 08:30 Dose: 75 mg Escitalopram Oxalate (Lexapro) 10 mg PO DAILY [facility] Last Admin: 10/01/18 08:29 Dose: 10 mg Famotidine (Pepcid) 20 mg PO BID [facility] Last Admin: 10/03/18 08:31 Dose: 20 mg Ferrous Sulfate (Feosol) 325 mg PO BID [facility] Last Admin: 10/03/18 08:30 Dose: 325 mg Heparin Sodium (Porcine) (Heparin) 5,000 units SC Q8 [facility]; Protocol Last Admin: 10/03/18 08:28 Dose: 5,000 units Vancomycin HCl 750 mg/ Sodium (Chloride) 250 mls @ 166.667 mls/hr IVPB Q12H [facility]; Protocol Last Admin: 10/03/18 07:24 Dose: Not Given Meropenem 1 gm/ Sodium (Chloride) 100 mls @ 100 mls/hr IVPB Q8 [facility]; Protocol Last Admin: 10/03/18 08:31 Dose: 100 mls/hr - Labs Labs: 10/03/18 05:00 10/03/18 05:00 PT 12.4 Seconds (9.8-13.1) 10/02/18 04:45 INR 1.1 10/02/18 04:45 APTT 34.2 Seconds (25.6-37.1) 10/02/18 04:45 - Head Exam Head Exam: NORMOCEPHALIC - Respiratory Exam Respiratory Exam: Rhonchi, NORMAL BREATHING PATTERN - Cardiovascular Exam Cardiovascular Exam: REGULAR RHYTHM - GI/Abdominal Exam GI & Abdominal Exam: Soft, Normal Bowel Sounds Assessment and Plan - Assessment and Plan (Free Text) Assessment: 78 yo male with sepsis more alert lft improving speech/swallow eval for feeds
--- NOTE | 2018-10-03 13:27 | CP.PCM.PN ---
Subjective - Date & Time of Evaluation Date of Evaluation: 10/03/18 Time of Evaluation: 08:00 - Subjective Subjective: central line placed before cultures resulted as negative- if fever persists or recurs will need to remove Objective - Vital Signs/Intake and Output Vital Signs (last 24 hours): Temp Pulse Resp BP Pulse Ox 98.2 F 67 16 130/85 100 10/03/18 12:00 10/03/18 12:00 10/03/18 12:00 10/03/18 12:00 10/03/18 12:00 Intake and Output: 10/03/18 10/03/18 06:59 18:59 Intake Total 1750 1360 Output Total 1200 Balance 550 1360 - Medications Medications: Current Medications Acetaminophen (Tylenol 325mg Tab) 650 mg PO Q6 PRN PRN Reason: Fever >100.4 F Atorvastatin Calcium (Lipitor) 20 mg PO DAILY [facility] Last Admin: 10/03/18 08:31 Dose: 20 mg Carbidopa/Levodopa (Sinemet) 1 tab PO TID [facility] Last Admin: 10/03/18 08:30 Dose: 1 tab Clopidogrel Bisulfate (Plavix) 75 mg PO DAILY [facility] Last Admin: 10/03/18 08:30 Dose: 75 mg Escitalopram Oxalate (Lexapro) 10 mg PO DAILY [facility] Last Admin: 10/01/18 08:29 Dose: 10 mg Famotidine (Pepcid) 20 mg PO BID [facility] Last Admin: 10/03/18 08:31 Dose: 20 mg Ferrous Sulfate (Feosol) 325 mg PO BID [facility] Last Admin: 10/03/18 08:30 Dose: 325 mg Heparin Sodium (Porcine) (Heparin) 5,000 units SC Q8 [facility]; Protocol Last Admin: 10/03/18 08:28 Dose: 5,000 units Vancomycin HCl 750 mg/ Sodium (Chloride) 250 mls @ 166.667 mls/hr IVPB Q12H [facility]; Protocol Last Admin: 10/03/18 07:24 Dose: Not Given Meropenem 1 gm/ Sodium (Chloride) 100 mls @ 100 mls/hr IVPB Q8 [facility]; Protocol Last Admin: 10/03/18 08:31 Dose: 100 mls/hr - Labs Labs: 10/03/18 05:00 10/03/18 05:00 PT 12.4 Seconds (9.8-13.1) 10/02/18 04:45 INR 1.1 10/02/18 04:45 APTT 34.2 Seconds (25.6-37.1) 10/02/18 04:45 - Constitutional Appears: Confused, Chronically Ill - Head Exam Head Exam: NORMOCEPHALIC - Eye Exam Eye Exam: EOMI. absent: Scleral icterus - ENT Exam ENT Exam: Mucous Membranes Dry - Neck Exam Neck Exam: absent: Thyromegaly - Respiratory Exam Respiratory Exam: Decreased Breath Sounds - Cardiovascular Exam Cardiovascular Exam: REGULAR RHYTHM, +S1, +S2 - GI/Abdominal Exam GI & Abdominal Exam: Distended, Soft - Rectal Exam Rectal Exam: Deferred - Exam Exam: NORMAL INSPECTION - Extremities Exam Extremities Exam: absent: Pedal Edema - Back Exam Back Exam: absent: CVA tenderness (L), CVA tenderness (R) - Neurological Exam Neurological Exam: Altered - Psychiatric Exam Psychiatric exam: Depressed Assessment and Plan (1) Decubital ulcer Status: Acute (2) Fever in adult Status: Acute (3) Sepsis Status: Acute (4) Septic shock Status: Acute (5) Severe sepsis Status: Acute (6) UTI (urinary tract infection) Status: Acute - Assessment and Plan (Free Text) Assessment: central line placed before cultures resulted as negative- if fever persists or recurs will need to remove line await final cultures
[2018-10-03] MEDS ORDERED: Chlorhexidine Gluconate 1 APPL/PKT TP ONE (16:20)
--- NOTE | 2018-10-03 20:43 | CP.PCM.PN ---
Subjective - Date & Time of Evaluation Date of Evaluation: 10/03/18 Time of Evaluation: 20:42 - Subjective Subjective: pt remains as assessed case dc with all consultants familfy updated labs reviewed Objective - Vital Signs/Intake and Output Vital Signs (last 24 hours): Temp Pulse Resp BP Pulse Ox 98.2 F 117 H 20 151/91 H 100 10/03/18 16:00 10/03/18 16:00 10/03/18 16:00 10/03/18 16:00 10/03/18 16:00 Intake and Output: 10/03/18 10/04/18 18:59 06:59 Intake Total 1600 Balance 1600 - Medications Medications: Current Medications Acetaminophen (Tylenol 325mg Tab) 650 mg PO Q6 PRN PRN Reason: Fever >100.4 F Atorvastatin Calcium (Lipitor) 20 mg PO DAILY [facility] Last Admin: 10/03/18 08:31 Dose: 20 mg Carbidopa/Levodopa (Sinemet) 1 tab PO TID [facility] Last Admin: 10/03/18 16:08 Dose: 1 tab Clopidogrel Bisulfate (Plavix) 75 mg PO DAILY [facility] Last Admin: 10/03/18 08:30 Dose: 75 mg Escitalopram Oxalate (Lexapro) 10 mg PO DAILY [facility] Last Admin: 10/01/18 08:29 Dose: 10 mg Famotidine (Pepcid) 20 mg PO BID [facility] Last Admin: 10/03/18 16:08 Dose: 20 mg Ferrous Sulfate (Feosol) 325 mg PO BID [facility] Last Admin: 10/03/18 16:08 Dose: 325 mg Heparin Sodium (Porcine) (Heparin) 5,000 units SC Q8 [facility]; Protocol Last Admin: 10/03/18 16:09 Dose: 5,000 units Vancomycin HCl 750 mg/ Sodium (Chloride) 250 mls @ 166.667 mls/hr IVPB Q12H [facility]; Protocol Last Admin: 10/03/18 18:12 Dose: 166.667 mls/hr Meropenem 1 gm/ Sodium (Chloride) 100 mls @ 100 mls/hr IVPB Q8 [facility]; Protocol Last Admin: 10/03/18 16:09 Dose: 100 mls/hr - Labs Labs: 10/03/18 05:00 10/03/18 05:00 PT 12.4 Seconds (9.8-13.1) 10/02/18 04:45 INR 1.1 10/02/18 04:45 APTT 34.2 Seconds (25.6-37.1) 10/02/18 04:45 - Constitutional Appears: Non-toxic, No Acute Distress - Head Exam Head Exam: ATRAUMATIC, NORMAL INSPECTION, NORMOCEPHALIC - Eye Exam Eye Exam: EOMI, Normal appearance, PERRL Pupil Exam: NORMAL ACCOMODATION, PERRL - ENT Exam ENT Exam: Mucous Membranes Moist, Normal Exam - Neck Exam Neck Exam: Full ROM, Normal Inspection. absent: Lymphadenopathy - Respiratory Exam Respiratory Exam: Clear to Ausculation Bilateral, NORMAL BREATHING PATTERN - Cardiovascular Exam Cardiovascular Exam: REGULAR RHYTHM, RRR, +S1, +S2. absent: Murmur - GI/Abdominal Exam GI & Abdominal Exam: Soft, Normal Bowel Sounds. absent: Tenderness - Extremities Exam Extremities Exam: Full ROM, Normal Capillary Refill, Normal Inspection. 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
[2018-10-04] MEDS: Meropenem 1 GM in Sodium Chloride 0.9% 100 ML IVPB SCH ×3 (00:33→17:20)
[2018-10-04 05:49] LABS: HEMOGLOBIN 8.5 g/dL (12.0-18.0); MEAN CELL VOLUME 88.5 fl (80.0-94.0); MEAN CORPUSCULAR HEMOGLOBIN 28.7 pg (27.0-31.0); MEAN CORPUSCULAR HGB CONC 32.4 g/dL (33.0-37.0); RBC 2.96 Mil/uL (4.40-5.90); RED CELL DISTRIBUTION WIDTH 15.6 % (11.5-14.5)
[2018-10-04 05:57] LABS: BLOOD UREA NITROGEN 19 mg/dl (9-20); CALCIUM 6.8 mg/dL (8.4-10.2); GFR NON-AFRICAN AMERICAN > 60
[2018-10-04] MEDS ORDERED: Potassium Chloride 20 mEq ER Tab PO ONE (09:00)
--- NOTE | 2018-10-04 20:13 | CP.PCM.PN ---
Subjective - Date & Time of Evaluation Date of Evaluation: 10/04/18 Time of Evaluation: 20:12 - Subjective Subjective: pt doing well remains in no distress no fcnvd bw noted repeat cs negative Objective - Vital Signs/Intake and Output Vital Signs (last 24 hours): Temp Pulse Resp BP Pulse Ox 98.8 F 74 18 158/99 H 98 10/04/18 06:00 10/04/18 06:00 10/04/18 06:00 10/04/18 06:00 10/04/18 06:00 Intake and Output: 10/04/18 10/05/18 18:59 07:59 Intake Total 2000 Output Total 1600 Balance 400 - Medications Medications: Current Medications Acetaminophen (Tylenol 325mg Tab) 650 mg PO Q6 PRN PRN Reason: Fever >100.4 F Atorvastatin Calcium (Lipitor) 20 mg PO DAILY [facility] Last Admin: 10/04/18 09:34 Dose: 20 mg Carbidopa/Levodopa (Sinemet) 1 tab PO TID [facility] Last Admin: 10/04/18 18:13 Dose: 1 tab Clopidogrel Bisulfate (Plavix) 75 mg PO DAILY [facility] Last Admin: 10/04/18 09:34 Dose: 75 mg Escitalopram Oxalate (Lexapro) 10 mg PO DAILY [facility] Last Admin: 10/01/18 08:29 Dose: 10 mg Famotidine (Pepcid) 20 mg PO BID [facility] Last Admin: 10/04/18 17:23 Dose: 20 mg Ferrous Sulfate (Feosol) 325 mg PO BID [facility] Last Admin: 10/04/18 17:23 Dose: 325 mg Meropenem 1 gm/ Sodium (Chloride) 100 mls @ 100 mls/hr IVPB Q8 [facility]; Protocol Last Admin: 10/04/18 17:20 Dose: 100 mls/hr - Labs Labs: 10/04/18 04:45 10/04/18 04:45 PT 12.4 Seconds (9.8-13.1) 10/02/18 04:45 INR 1.1 10/02/18 04:45 APTT 34.2 Seconds (25.6-37.1) 10/02/18 04:45 - Constitutional Appears: Non-toxic, No Acute Distress, Chronically Ill - Head Exam Head Exam: ATRAUMATIC, NORMAL INSPECTION, NORMOCEPHALIC - Eye Exam Eye Exam: EOMI, Normal appearance, PERRL Pupil Exam: NORMAL ACCOMODATION, PERRL - ENT Exam ENT Exam: Mucous Membranes Moist, Normal Exam - Neck Exam Neck Exam: Full ROM, Normal Inspection. absent: Lymphadenopathy - Respiratory Exam Respiratory Exam: Clear to Ausculation Bilateral, NORMAL BREATHING PATTERN - Cardiovascular Exam Cardiovascular Exam: REGULAR RHYTHM, RRR, +S1, +S2. absent: Murmur - GI/Abdominal Exam GI & Abdominal Exam: Soft, Normal Bowel Sounds. absent: Tenderness - Extremities Exam Extremities Exam: Full ROM, Normal Capillary Refill, Normal Inspection. absent: Joint Swelling, Pedal Edema - Back Exam Back Exam: NORMAL INSPECTION - Neurological Exam Neurological Exam: Abnormal Gait, Alert, Awake, CN II-XII Intact - Psychiatric Exam Psychiatric exam: Normal Affect, Normal Mood - Skin Skin Exam: Dry, Intact, Normal Color, Warm Assessment and Plan (1) DVT prophylaxis Assessment & Plan: scd nad ae hose heparin Status: Acute (2) Decubital ulcer Assessment & Plan: wound care wound vac wound rn anbx c/s noted Status: Acute (3) Severe sepsis Assessment & Plan: iv anbx id likely urinesource c/s noted Status: Acute (4) UTI (urinary tract infection) Assessment & Plan: iv anbx id c/s noted Status: Acute
[2018-10-05] MEDS: Meropenem 1 GM in Sodium Chloride 0.9% 100 ML IVPB SCH ×3 (00:28→17:34)
[2018-10-05 06:09] LABS: BASO % 0.4 % (0.0-2.0); EOS # 0.2 K/uL (0.0-0.7); EOS % 5.2 % (0.0-4.0); HEMOGLOBIN 8.5 g/dL (12.0-18.0); LYMPH # 1.1 K/uL (1.0-4.3); LYMPH % 26.3 % (20.0-40.0); MEAN CELL VOLUME 87.8 fl (80.0-94.0); MEAN CORPUSCULAR HEMOGLOBIN 28.9 pg (27.0-31.0); MEAN PLATELET VOLUME 9.7 fl (7.2-11.7); MONO # 0.3 K/uL (0.0-0.8); MONO % 6.9 % (0.0-10.0); NEUT # 2.6 K/uL (1.8-7.0); NEUT % 61.2 % (50.0-75.0); NRBC % 0.1 % (0.0-0.0); RBC 2.95 Mil/uL (4.40-5.90); RED CELL DISTRIBUTION WIDTH 15.6 % (11.5-14.5); WHITE BLOOD COUNT 4.3 K/uL (4.8-10.8)
[2018-10-05 06:24] LABS: ALB/GLOB RATIO 0.5 (1.0-2.1); ALBUMIN 1.8 g/dL (3.5-5.0); ALT/SGPT 93 U/L (21-72); AST/SGOT 100 U/L (17-59); BLOOD UREA NITROGEN 17 mg/dl (9-20); GFR NON-AFRICAN AMERICAN > 60
--- NOTE | 2018-10-05 12:57 | CP.PCM.PN ---
Subjective - Date & Time of Evaluation Date of Evaluation: 10/05/18 Time of Evaluation: 07:00 - Subjective Subjective: repeat cultures neg thus far cont IV antibiotics for 6-8 weeks Objective - Vital Signs/Intake and Output Vital Signs (last 24 hours): Temp Pulse Resp BP Pulse Ox 98.8 F 73 18 156/97 H 100 10/05/18 12:28 10/05/18 12:28 10/05/18 12:28 10/05/18 12:28 10/05/18 12:28 Intake and Output: 10/05/18 10/05/18 06:59 18:59 Intake Total 540 Output Total 950 Balance -410 - Medications Medications: Current Medications Acetaminophen (Tylenol 325mg Tab) 650 mg PO Q6 PRN PRN Reason: Fever >100.4 F Atorvastatin Calcium (Lipitor) 20 mg PO DAILY [facility] Last Admin: 10/05/18 08:53 Dose: 20 mg Carbidopa/Levodopa (Sinemet) 1 tab PO TID [facility] Last Admin: 10/05/18 12:24 Dose: 1 tab Clopidogrel Bisulfate (Plavix) 75 mg PO DAILY [facility] Last Admin: 10/05/18 08:53 Dose: 75 mg Escitalopram Oxalate (Lexapro) 10 mg PO DAILY [facility] Last Admin: 10/01/18 08:29 Dose: 10 mg Famotidine (Pepcid) 20 mg PO BID [facility] Last Admin: 10/05/18 08:53 Dose: 20 mg Ferrous Sulfate (Feosol) 325 mg PO BID [facility] Last Admin: 10/05/18 08:54 Dose: 325 mg Heparin Sodium (Porcine) (Heparin) 5,000 units SC Q8 [facility]; Protocol Last Admin: 10/05/18 08:52 Dose: 5,000 units Meropenem 1 gm/ Sodium (Chloride) 100 mls @ 100 mls/hr IVPB Q8 [facility]; Protocol Last Admin: 10/05/18 08:54 Dose: 100 mls/hr - Labs Labs: 10/05/18 05:00 10/05/18 05:00 PT 12.4 Seconds (9.8-13.1) 10/02/18 04:45 INR 1.1 10/02/18 04:45 APTT 34.2 Seconds (25.6-37.1) 10/02/18 04:45 - Constitutional Appears: No Acute Distress, Confused, Cachectic, Chronically Ill - Head Exam Head Exam: NORMOCEPHALIC - Eye Exam Eye Exam: absent: Scleral icterus - ENT Exam ENT Exam: Mucous Membranes Dry - Neck Exam Neck Exam: absent: Lymphadenopathy - Respiratory Exam Respiratory Exam: Decreased Breath Sounds - Cardiovascular Exam Cardiovascular Exam: REGULAR RHYTHM - GI/Abdominal Exam GI & Abdominal Exam: Distended, Soft. absent: Tenderness - Rectal Exam Rectal Exam: Deferred - Exam Exam: NORMAL INSPECTION - Extremities Exam Extremities Exam: absent: Pedal Edema - Back Exam Back Exam: absent: CVA tenderness (L), CVA tenderness (R) Additional comments: + decubitus - Neurological Exam Neurological Exam: Alert, Awake - Psychiatric Exam Psychiatric exam: Depressed - Skin Skin Exam: Dry Assessment and Plan (1) Decubital ulcer Status: Acute (2) Fever in adult Status: Acute (3) Sepsis Status: Acute (4) Septic shock Status: Acute (5) Severe sepsis Status: Acute (6) UTI (urinary tract infection) Status: Acute - Assessment and Plan (Free Text) Assessment: cont IV rx for SSTI
--- NOTE | 2018-10-05 19:15 | CP.PCM.PN ---
Subjective - Date & Time of Evaluation Date of Evaluation: 10/05/18 Time of Evaluation: 19:14 - Subjective Subjective: pt doing well no complaints remains as assessed no fcnvd bw noted for deandra when cleared Objective - Vital Signs/Intake and Output Vital Signs (last 24 hours): Temp Pulse Resp BP Pulse Ox 97.6 F 80 20 130/94 H 98 10/05/18 17:21 10/05/18 17:21 10/05/18 17:21 10/05/18 17:21 10/05/18 17:21 Intake and Output: 10/05/18 10/06/18 18:59 06:59 Intake Total 1720 Output Total 1750 Balance -30 - Medications Medications: Current Medications Acetaminophen (Tylenol 325mg Tab) 650 mg PO Q6 PRN PRN Reason: Fever >100.4 F Atorvastatin Calcium (Lipitor) 20 mg PO DAILY [facility] Last Admin: 10/05/18 08:53 Dose: 20 mg Carbidopa/Levodopa (Sinemet) 1 tab PO TID [facility] Last Admin: 10/05/18 17:03 Dose: 1 tab Clopidogrel Bisulfate (Plavix) 75 mg PO DAILY [facility] Last Admin: 10/05/18 08:53 Dose: 75 mg Dimethicone (Proshield Plus Skin Protectant) 1 applic TOP Q8 [facility] Escitalopram Oxalate (Lexapro) 10 mg PO DAILY [facility] Last Admin: 10/01/18 08:29 Dose: 10 mg Famotidine (Pepcid) 20 mg PO BID [facility] Last Admin: 10/05/18 17:02 Dose: 20 mg Ferrous Sulfate (Feosol Liq) 300 mg PO BID [facility] Heparin Sodium (Porcine) (Heparin) 5,000 units SC Q8 [facility]; Protocol Last Admin: 10/05/18 17:03 Dose: 5,000 units Meropenem 1 gm/ Sodium (Chloride) 100 mls @ 100 mls/hr IVPB Q8 [facility]; Protocol Last Admin: 10/05/18 17:34 Dose: 100 mls/hr - Labs Labs: 10/05/18 05:00 10/05/18 05:00 PT 12.4 Seconds (9.8-13.1) 10/02/18 04:45 INR 1.1 10/02/18 04:45 APTT 34.2 Seconds (25.6-37.1) 10/02/18 04:45 - Constitutional Appears: Non-toxic, No Acute Distress, Chronically Ill - Head Exam Head Exam: ATRAUMATIC, NORMAL INSPECTION, NORMOCEPHALIC - Eye Exam Eye Exam: EOMI, Normal appearance, PERRL Pupil Exam: NORMAL ACCOMODATION, PERRL - ENT Exam ENT Exam: Mucous Membranes Moist, Normal Exam - Neck Exam Neck Exam: Full ROM, Normal Inspection. absent: Lymphadenopathy - Respiratory Exam Respiratory Exam: Clear to Ausculation Bilateral, NORMAL BREATHING PATTERN - Cardiovascular Exam Cardiovascular Exam: REGULAR RHYTHM, RRR, +S1, +S2. absent: Murmur - GI/Abdominal Exam GI & Abdominal Exam: Soft, Normal Bowel Sounds. absent: Tenderness - Extremities Exam Extremities Exam: Full ROM, Normal Capillary Refill, Normal Inspection. absent: Joint Swelling, Pedal Edema - Back Exam Back Exam: NORMAL INSPECTION - Neurological Exam Neurological Exam: Abnormal Gait, Alert, Awake, CN II-XII Intact - Psychiatric Exam Psychiatric exam: Normal Affect, Normal Mood - Skin Skin Exam: Dry, Intact, Normal Color, Warm Assessment and Plan - Assessment and Plan (Free Text) Assessment: (1) DVT prophylaxis Assessment & Plan: scd nad ae hose heparin Status: Acute (2) Decubital ulcer Assessment & Plan: wound care wound vac wound rn anbx c/s noted Status: Acute (3) Severe sepsis Assessment & Plan: iv anbx id likely urinesource c/s noted Status: Acute (4) UTI (urinary tract infection) Assessment & Plan: iv anbx id c/s noted Status: Acute
[2018-10-05] MEDS: Proshield Plus GEL TOP SCH (20:34)
[2018-10-06] MEDS: Meropenem 1 GM in Sodium Chloride 0.9% 100 ML IVPB SCH ×3 (00:24→17:02)
[2018-10-06] MEDS: Proshield Plus GEL TOP SCH ×3 (04:25→17:00)
[2018-10-06 06:33] LABS: BASO % 0.6 % (0.0-2.0); EOS # 0.2 K/uL (0.0-0.7); EOS % 5.1 % (0.0-4.0); HEMOGLOBIN 8.4 g/dL (12.0-18.0); LYMPH # 1.1 K/uL (1.0-4.3); LYMPH % 30.5 % (20.0-40.0); MEAN CELL VOLUME 88.3 fl (80.0-94.0); MEAN CORPUSCULAR HEMOGLOBIN 28.4 pg (27.0-31.0); MEAN CORPUSCULAR HGB CONC 32.2 g/dL (33.0-37.0); MEAN PLATELET VOLUME 9.4 fl (7.2-11.7); MONO # 0.3 K/uL (0.0-0.8); MONO % 9.7 % (0.0-10.0); NEUT # 1.9 K/uL (1.8-7.0); NEUT % 54.1 % (50.0-75.0); NRBC % 0.1 % (0.0-0.0); RBC 2.98 Mil/uL (4.40-5.90); RED CELL DISTRIBUTION WIDTH 15.7 % (11.5-14.5); WHITE BLOOD COUNT 3.5 K/uL (4.8-10.8)
[2018-10-06 06:47] LABS: IRON 20 ug/dL (49-181)
[2018-10-06 06:49] LABS: ALB/GLOB RATIO 0.5 (1.0-2.1); ALBUMIN 1.9 g/dL (3.5-5.0); ALT/SGPT 102 U/L (21-72); AST/SGOT 83 U/L (17-59); BLOOD UREA NITROGEN 17 mg/dl (9-20); CALCIUM 7.3 mg/dL (8.4-10.2); GFR NON-AFRICAN AMERICAN > 60
[2018-10-06 06:56] LABS: % IRON SATURATION 13 % (20-55); TOTAL IRON BINDING CAPACITY 154 ug/dL (250-450)
[2018-10-06] MEDS ORDERED: Ferrous Sulfate 300 mg/5 mL Liq UD PO SCH (09:00)
--- NOTE | 2018-10-06 10:22 | CP.PCM.PN ---
Subjective - Date & Time of Evaluation Date of Evaluation: 10/06/18 Time of Evaluation: 10:21 - Subjective Subjective: pt appears more alert. no f/c, n/v/d. bw and consults reviewed. for dispo to [facility] when cleared. social work on case Objective - Vital Signs/Intake and Output Vital Signs (last 24 hours): Temp Pulse Resp BP Pulse Ox 97.6 F 79 20 129/91 H 98 10/06/18 07:57 10/06/18 07:57 10/06/18 07:57 10/06/18 07:57 10/06/18 07:57 Intake and Output: 10/06/18 10/06/18 06:59 18:59 Intake Total 1420 Output Total 2250 Balance -830 - Medications Medications: Current Medications Acetaminophen (Tylenol 325mg Tab) 650 mg PO Q6 PRN PRN Reason: Fever >100.4 F Atorvastatin Calcium (Lipitor) 20 mg PO DAILY [facility] Last Admin: 10/05/18 08:53 Dose: 20 mg Carbidopa/Levodopa (Sinemet) 1 tab PO TID [facility] Last Admin: 10/05/18 17:03 Dose: 1 tab Clopidogrel Bisulfate (Plavix) 75 mg PO DAILY [facility] Last Admin: 10/05/18 08:53 Dose: 75 mg Dimethicone (Proshield Plus Skin Protectant) 1 applic TOP Q8 [facility] Last Admin: 10/06/18 09:27 Dose: 1 applic Escitalopram Oxalate (Lexapro) 10 mg PO DAILY [facility] Last Admin: 10/01/18 08:29 Dose: 10 mg Famotidine (Pepcid) 20 mg PO BID [facility] Last Admin: 10/05/18 17:02 Dose: 20 mg Ferrous Sulfate (Feosol Liq) 300 mg PO BID [facility] Heparin Sodium (Porcine) (Heparin) 5,000 units SC Q8 [facility]; Protocol Last Admin: 10/06/18 09:26 Dose: 5,000 units Meropenem 1 gm/ Sodium (Chloride) 100 mls @ 100 mls/hr IVPB Q8 [facility]; Protocol Last Admin: 10/06/18 09:26 Dose: 100 mls/hr - Labs Labs: 10/06/18 06:00 10/06/18 06:00 PT 12.4 Seconds (9.8-13.1) 10/02/18 04:45 INR 1.1 03/07/19 04:45 APTT 34.2 Seconds (25.6-37.1) 10/02/18 04:45 - Constitutional Appears: Well, Non-toxic, No Acute Distress - Head Exam Head Exam: ATRAUMATIC, NORMAL INSPECTION, NORMOCEPHALIC - Eye Exam Eye Exam: EOMI, Normal appearance, PERRL Pupil Exam: NORMAL ACCOMODATION, PERRL - ENT Exam ENT Exam: Mucous Membranes Moist, Normal Exam - Neck Exam Neck Exam: Full ROM, Normal Inspection. absent: Lymphadenopathy - Respiratory Exam Respiratory Exam: Clear to Ausculation Bilateral, NORMAL BREATHING PATTERN - Cardiovascular Exam Cardiovascular Exam: REGULAR RHYTHM, RRR, +S1, +S2. absent: Murmur - GI/Abdominal Exam GI & Abdominal Exam: Soft, Normal Bowel Sounds. absent: Tenderness - Extremities Exam Extremities Exam: Full ROM, Normal Capillary Refill, Normal Inspection. absent: Joint Swelling, Pedal Edema - Back Exam Back Exam: NORMAL INSPECTION - Neurological Exam Neurological Exam: Alert, Awake, CN II-XII Intact, Normal Gait, Oriented x3 - Psychiatric Exam Psychiatric exam: Normal Affect, Normal Mood - Skin Skin Exam: Dry, Intact, Normal Color, Warm Assessment and Plan (1) Decubital ulcer Assessment & Plan: wound ornament setter vac wound care lumbar XR Status: Acute (2) DVT prophylaxis Assessment & Plan: scd nad ae hose heparin Status: Acute (3) CVA (cerebral vascular accident) Assessment & Plan: total prison meds Status: Acute (4) Parkinson disease Assessment & Plan: cont home meds Status: Acute (5) Septic shock Assessment & Plan: confirmed and resolved merrem id c/s noted iv anbx x 6 wks picc Status: Acute (6) UTI (urinary tract infection) Assessment & Plan: merrem id Status: Acute
[2018-10-06] MEDS: Ferrous Sulfate 300 mg/5 mL Liq UD PO SCH ×2 (10:50→16:58)
--- NOTE | 2018-10-06 13:12 | PQF ---
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 Please specify the cause (includes suspected or probable cause) Such as: -- Due to acute blood loss -- Due to chronic blood loss -- Due to iron deficiency -- Due to chronic disease: Please specify the disease -- Other, please specify The patient's Clinical Indicators include: HGB ranging 9.1- 8.4 HCT ranging 31.3--25.9 MCV and MCH WNL Iron, TIBC , % Saturation, Transferrin all LOW Ferritin and B12 WNL and Folate Pending Rx: Feosol Query created by: Crystal Buckner on 10/06/2018 1:06 PM Electronically signed by: Sammy Fitzgerald APN 10/06/2018 1:10 PM
[2018-10-06 13:21] LABS: FOLATE 6.9 ng/mL
[2018-10-06 16:09] VITALS: RESP 20
[2018-10-06] MEDS: Magnesium Oxide 400 mg Tab UD PO SCH (17:00)
[2018-10-06] MEDS: Potassium & Sodium Phosphate PO SCH (17:01)
[2018-10-07] MEDS: Meropenem 1 GM in Sodium Chloride 0.9% 100 ML IVPB SCH ×3 (01:44→16:29)
[2018-10-07] MEDS: Proshield Plus GEL TOP SCH ×3 (01:45→16:30)
[2018-10-07] MEDS ORDERED: Glucagon Recombinant 1 mg Inj IM PRN (05:59)
[2018-10-07] MEDS ORDERED: Dextrose 50% SYRINGE Inj (50 ml) IV PRN (05:59)
[2018-10-07] MEDS ORDERED: Dextrose 50% SYRINGE Inj (50 ml) ONE (06:02)
[2018-10-07 06:37] LABS: BASO % 0.6 % (0.0-2.0); EOS # 0.1 K/uL (0.0-0.7); EOS % 4.1 % (0.0-4.0); HEMOGLOBIN 8.6 g/dL (12.0-18.0); LYMPH # 1.3 K/uL (1.0-4.3); LYMPH % 36.5 % (20.0-40.0); MEAN CELL VOLUME 88.9 fl (80.0-94.0); MEAN CORPUSCULAR HEMOGLOBIN 27.8 pg (27.0-31.0); MEAN CORPUSCULAR HGB CONC 31.3 g/dL (33.0-37.0); MEAN PLATELET VOLUME 9.5 fl (7.2-11.7); MONO # 0.4 K/uL (0.0-0.8); MONO % 10.4 % (0.0-10.0); NEUT # 1.7 K/uL (1.8-7.0); NEUT % 48.4 % (50.0-75.0); RBC 3.09 Mil/uL (4.40-5.90); WHITE BLOOD COUNT 3.4 K/uL (4.8-10.8)
[2018-10-07 06:58] LABS: ALB/GLOB RATIO 0.5 (1.0-2.1); ALT/SGPT 82 U/L (21-72); AST/SGOT 70 U/L (17-59); BLOOD UREA NITROGEN 16 mg/dl (9-20); CALCIUM 7.7 mg/dL (8.4-10.2); GFR NON-AFRICAN AMERICAN > 60
--- NOTE | 2018-10-07 09:57 | CP.PCM.PN ---
Subjective - Date & Time of Evaluation Date of Evaluation: 10/07/18 Time of Evaluation: 09:55 - Subjective Subjective: pt remains as assessed. no f/c, n/v/d. alert but nonverbal. bw noted. hgb stable. lft trending down. son at bedside. d/c care accepts [facility] for deandra-sw aware for picc today no arm swelling noted as reported by yesterday. overnight glucose noted. Objective - Vital Signs/Intake and Output Vital Signs (last 24 hours): Temp Pulse Resp BP Pulse Ox 97.7 F 72 20 130/91 H 98 10/07/18 08:37 10/07/18 08:37 10/07/18 08:37 10/07/18 08:37 10/07/18 08:37 Intake and Output: 10/07/18 10/07/18 06:59 18:59 Intake Total 250 Output Total 1800 Balance -1550 - Medications Medications: Current Medications Acetaminophen (Tylenol 325mg Tab) 650 mg PO Q6 PRN PRN Reason: Fever >100.4 F Atorvastatin Calcium (Lipitor) 20 mg PO DAILY [facility] Last Admin: 10/06/18 10:50 Dose: 20 mg Carbidopa/Levodopa (Sinemet) 1 tab PO TID [facility] Last Admin: 10/06/18 17:00 Dose: 1 tab Clopidogrel Bisulfate (Plavix) 75 mg PO DAILY [facility] Last Admin: 10/06/18 10:51 Dose: 75 mg Dextrose (Dextrose 50% Inj) 0 ml IV STAT PRN; Protocol PRN Reason: Hypoglycemia Protocol Last Admin: 10/07/18 06:09 Dose: 67 ml Dextrose (Glutose 15) 0 gm PO ONCE PRN; Protocol PRN Reason: Hypoglycemia Protocol Dimethicone (Proshield Plus Skin Protectant) 1 applic TOP Q8 [facility] Last Admin: 10/07/18 01:45 Dose: 1 applic Escitalopram Oxalate (Lexapro) 10 mg PO DAILY [facility] Last Admin: 10/01/18 08:29 Dose: 10 mg Famotidine (Pepcid) 20 mg PO BID [facility] Last Admin: 10/06/18 17:00 Dose: 20 mg Ferrous Sulfate (Feosol Liq) 300 mg PO BID [facility] Last Admin: 10/06/18 16:58 Dose: 300 mg Glucagon (Glucagen Diagnostic Kit) 0 mg IM STAT PRN; Protocol PRN Reason: Hypoglycemia Protocol Heparin Sodium (Porcine) (Heparin) 5,000 units SC Q8 [facility]; Protocol Last Admin: 10/07/18 01:44 Dose: 5,000 units Hydrochlorothiazide (Microzide) 12.5 mg PO DAILY [facility] Meropenem 1 gm/ Sodium (Chloride) 100 mls @ 100 mls/hr IVPB Q8 [facility]; Protocol Last Admin: 10/07/18 01:44 Dose: 100 mls/hr Vancomycin HCl 750 mg/ Sodium (Chloride) 250 mls @ 250 mls/hr IVPB Q12H [facility]; Protocol Last Admin: 10/06/18 21:44 Dose: 250 mls/hr Magnesium Oxide (Mag-Ox) 400 mg PO DAILY [facility] Last Admin: 10/06/18 17:00 Dose: 400 mg Potassium Phos/Sodium Phos (Neutra-Phos) 1 pkt PO BID [facility] Last Admin: 10/06/18 17:01 Dose: 1 pkt - Labs Labs: 10/07/18 05:15 10/07/18 05:15 PT 12.4 Seconds (9.8-13.1) 10/02/18 04:45 INR 1.1 10/02/18 04:45 APTT 34.2 Seconds (25.6-37.1) 10/02/18 04:45 - Constitutional Appears: Non-toxic, No Acute Distress, Chronically Ill - Head Exam Head Exam: ATRAUMATIC, NORMAL INSPECTION, NORMOCEPHALIC - Eye Exam Eye Exam: EOMI, Normal appearance, PERRL Pupil Exam: NORMAL ACCOMODATION, PERRL - ENT Exam ENT Exam: Mucous Membranes Moist, Normal Exam - Neck Exam Neck Exam: Full ROM, Normal Inspection. absent: Lymphadenopathy - Respiratory Exam Respiratory Exam: Clear to Ausculation Bilateral, NORMAL BREATHING PATTERN - Cardiovascular Exam Cardiovascular Exam: REGULAR RHYTHM, +S1, +S2. absent: Murmur - GI/Abdominal Exam GI & Abdominal Exam: Soft, Normal Bowel Sounds. absent: Tenderness - Exam Bimanual exam: NORMAL BIMANUAL EXAM - Extremities Exam Extremities Exam: Full ROM, Normal Capillary Refill, Normal Inspection. absent: Joint Swelling, Pedal Edema - Back Exam Back Exam: NORMAL INSPECTION - Neurological Exam Neurological Exam: Abnormal Gait, Alert, Awake, CN II-XII Intact - Psychiatric Exam Psychiatric exam: Normal Affect, Normal Mood - Skin Skin Exam: Dry, Intact, Normal Color, Warm Assessment and Plan (1) Decubital ulcer Assessment & Plan: wound care, anbx, tam rn, wound vac lmbar xr-pending final reslt prior to dc Status: Acute (2) DVT prophylaxis Assessment & Plan: scd and aehose heparin Status: Acute (3) CVA (cerebral vascular accident) Assessment & Plan: sportive care ppx measures deandra Status: Acute (4) Parkinson disease Assessment & Plan: home meds Status: Acute (5) Septic shock Assessment & Plan: improving no f/c bw noted id consults appriciated cont anbx x 6 wks deandra Status: Acute (6) UTI (urinary tract infection) Assessment & Plan: kwan care c/s noted iv anbx x 6 wks Status: Acute
--- NOTE | 2018-10-07 10:22 | CP.PCM.PN ---
Subjective - Date & Time of Evaluation Date of Evaluation: 10/07/18 Time of Evaluation: 09:00 - Subjective Subjective: more alert NAD aphasic for KRYSTYNA cont IV antibiotics / wound care consider CT LS spine to r/o OM Objective - Vital Signs/Intake and Output Vital Signs (last 24 hours): Temp Pulse Resp BP Pulse Ox 97.7 F 72 20 130/91 H 98 10/07/18 08:37 10/07/18 08:37 10/07/18 08:37 10/07/18 08:37 10/07/18 08:37 Intake and Output: 10/07/18 10/07/18 06:59 18:59 Intake Total 250 Output Total 1800 Balance -1550 - Medications Medications: Current Medications Acetaminophen (Tylenol 325mg Tab) 650 mg PO Q6 PRN PRN Reason: Fever >100.4 F Atorvastatin Calcium (Lipitor) 20 mg PO DAILY [facility] Last Admin: 10/06/18 10:50 Dose: 20 mg Carbidopa/Levodopa (Sinemet) 1 tab PO TID [facility] Last Admin: 10/06/18 17:00 Dose: 1 tab Clopidogrel Bisulfate (Plavix) 75 mg PO DAILY [facility] Last Admin: 10/06/18 10:51 Dose: 75 mg Dextrose (Dextrose 50% Inj) 0 ml IV STAT PRN; Protocol PRN Reason: Hypoglycemia Protocol Last Admin: 10/07/18 06:09 Dose: 67 ml Dextrose (Glutose 15) 0 gm PO ONCE PRN; Protocol PRN Reason: Hypoglycemia Protocol Dimethicone (Proshield Plus Skin Protectant) 1 applic TOP Q8 [facility] Last Admin: 10/07/18 01:45 Dose: 1 applic Escitalopram Oxalate (Lexapro) 10 mg PO DAILY [facility] Last Admin: 10/01/18 08:29 Dose: 10 mg Famotidine (Pepcid) 20 mg PO BID [facility] Last Admin: 10/06/18 17:00 Dose: 20 mg Ferrous Sulfate (Feosol Liq) 300 mg PO BID [facility] Last Admin: 10/06/18 16:58 Dose: 300 mg Glucagon (Glucagen Diagnostic Kit) 0 mg IM STAT PRN; Protocol PRN Reason: Hypoglycemia Protocol Heparin Sodium (Porcine) (Heparin) 5,000 units SC Q8 [facility]; Protocol Last Admin: 10/07/18 01:44 Dose: 5,000 units Hydrochlorothiazide (Microzide) 12.5 mg PO DAILY [facility] Meropenem 1 gm/ Sodium (Chloride) 100 mls @ 100 mls/hr IVPB Q8 [facility]; Protocol Last Admin: 10/07/18 01:44 Dose: 100 mls/hr Vancomycin HCl 750 mg/ Sodium (Chloride) 250 mls @ 250 mls/hr IVPB Q12H [facility]; Protocol Last Admin: 10/06/18 21:44 Dose: 250 mls/hr Magnesium Oxide (Mag-Ox) 400 mg PO DAILY [facility] Last Admin: 10/06/18 17:00 Dose: 400 mg Potassium Phos/Sodium Phos (Neutra-Phos) 1 pkt PO BID [facility] Last Admin: 10/06/18 17:01 Dose: 1 pkt - Labs Labs: 10/07/18 05:15 10/07/18 05:15 PT 12.4 Seconds (9.8-13.1) 10/02/18 04:45 INR 1.1 10/02/18 04:45 APTT 34.2 Seconds (25.6-37.1) 10/02/18 04:45 - Constitutional Appears: Confused, Cachectic, Chronically Ill - Head Exam Head Exam: NORMOCEPHALIC - Eye Exam Eye Exam: Scleral icterus - ENT Exam ENT Exam: Mucous Membranes Dry - Neck Exam Neck Exam: absent: Lymphadenopathy - Respiratory Exam Respiratory Exam: Decreased Breath Sounds - Cardiovascular Exam Cardiovascular Exam: REGULAR RHYTHM - GI/Abdominal Exam GI & Abdominal Exam: Distended - Rectal Exam Rectal Exam: Deferred - Extremities Exam Extremities Exam: absent: Pedal Edema - Back Exam Back Exam: absent: CVA tenderness (L), CVA tenderness (R) - Neurological Exam Neurological Exam: Alert, Awake Assessment and Plan (1) Decubital ulcer Status: Acute (2) Fever in adult Status: Acute (3) Sepsis Status: Acute (4) Septic shock Status: Acute (5) Severe sepsis Status: Acute (6) UTI (urinary tract infection) Status: Acute - Assessment and Plan (Free Text) Assessment: consider CT lumbosacral spine' surgery on board- may need further debridement 'cont iv antibiotic
--- NOTE | 2018-10-07 10:47 | CP.PCM.PN ---
Subjective - Date & Time of Evaluation Date of Evaluation: 10/07/18 Time of Evaluation: 10:46 - Subjective Subjective: no overnight events Objective - Vital Signs/Intake and Output Vital Signs (last 24 hours): Temp Pulse Resp BP Pulse Ox 97.7 F 72 20 130/91 H 98 10/07/18 08:37 10/07/18 08:37 10/07/18 08:37 10/07/18 08:37 10/07/18 08:37 Intake and Output: 10/07/18 10/07/18 06:59 18:59 Intake Total 250 Output Total 1800 Balance -1550 - Medications Medications: Current Medications Acetaminophen (Tylenol 325mg Tab) 650 mg PO Q6 PRN PRN Reason: Fever >100.4 F Atorvastatin Calcium (Lipitor) 20 mg PO DAILY [facility] Last Admin: 10/06/18 10:50 Dose: 20 mg Carbidopa/Levodopa (Sinemet) 1 tab PO TID [facility] Last Admin: 10/06/18 17:00 Dose: 1 tab Clopidogrel Bisulfate (Plavix) 75 mg PO DAILY [facility] Last Admin: 10/06/18 10:51 Dose: 75 mg Dextrose (Dextrose 50% Inj) 0 ml IV STAT PRN; Protocol PRN Reason: Hypoglycemia Protocol Last Admin: 10/07/18 06:09 Dose: 67 ml Dextrose (Glutose 15) 0 gm PO ONCE PRN; Protocol PRN Reason: Hypoglycemia Protocol Dimethicone (Proshield Plus Skin Protectant) 1 applic TOP Q8 [facility] Last Admin: 10/07/18 01:45 Dose: 1 applic Escitalopram Oxalate (Lexapro) 10 mg PO DAILY [facility] Last Admin: 10/01/18 08:29 Dose: 10 mg Famotidine (Pepcid) 20 mg PO BID [facility] Last Admin: 10/06/18 17:00 Dose: 20 mg Ferrous Sulfate (Feosol Liq) 300 mg PO BID [facility] Last Admin: 10/06/18 16:58 Dose: 300 mg Glucagon (Glucagen Diagnostic Kit) 0 mg IM STAT PRN; Protocol PRN Reason: Hypoglycemia Protocol Heparin Sodium (Porcine) (Heparin) 5,000 units SC Q8 [facility]; Protocol Last Admin: 10/07/18 01:44 Dose: 5,000 units Hydrochlorothiazide (Microzide) 12.5 mg PO DAILY [facility] Meropenem 1 gm/ Sodium (Chloride) 100 mls @ 100 mls/hr IVPB Q8 [facility]; Protocol Last Admin: 10/07/18 01:44 Dose: 100 mls/hr Vancomycin HCl 750 mg/ Sodium (Chloride) 250 mls @ 250 mls/hr IVPB Q12H [facility]; Protocol Last Admin: 10/06/18 21:44 Dose: 250 mls/hr Magnesium Oxide (Mag-Ox) 400 mg PO DAILY [facility] Last Admin: 10/06/18 17:00 Dose: 400 mg Potassium Phos/Sodium Phos (Neutra-Phos) 1 pkt PO BID [facility] Last Admin: 10/06/18 17:01 Dose: 1 pkt - Labs Labs: 10/07/18 05:15 10/07/18 05:15 PT 12.4 Seconds (9.8-13.1) 10/02/18 04:45 INR 1.1 10/02/18 04:45 APTT 34.2 Seconds (25.6-37.1) 10/02/18 04:45 - Neck Exam Neck Exam: Normal Inspection - Respiratory Exam Respiratory Exam: Clear to Ausculation Bilateral, NORMAL BREATHING PATTERN - Cardiovascular Exam Cardiovascular Exam: REGULAR RHYTHM - GI/Abdominal Exam GI & Abdominal Exam: Soft, Normal Bowel Sounds Assessment and Plan - Assessment and Plan (Free Text) Assessment: 78 yo male with resolving sepsis tolerating PO feeds placement pending
[2018-10-07] MEDS: Ferrous Sulfate 300 mg/5 mL Liq UD PO SCH ×2 (11:13→16:28)
[2018-10-07] MEDS: Magnesium Oxide 400 mg Tab UD PO SCH (11:14)
[2018-10-07] MEDS: Potassium & Sodium Phosphate PO SCH ×2 (11:15→16:30)
[2018-10-08 01:40] VITALS: O2SAT 100
[2018-10-08] MEDS: Meropenem 1 GM in Sodium Chloride 0.9% 100 ML IVPB SCH ×2 (02:00→08:58)
[2018-10-08] MEDS: Proshield Plus GEL TOP SCH ×2 (02:04→09:00)
[2018-10-08 06:27] LABS: BASO % 0.7 % (0.0-2.0); EOS # 0.1 K/uL (0.0-0.7); EOS % 3.7 % (0.0-4.0); HEMOGLOBIN 8.6 g/dL (12.0-18.0); LYMPH % 33.6 % (20.0-40.0); MEAN CELL VOLUME 88.6 fl (80.0-94.0); MEAN CORPUSCULAR HGB CONC 32.8 g/dL (33.0-37.0); MEAN PLATELET VOLUME 9.3 fl (7.2-11.7); MONO # 0.4 K/uL (0.0-0.8); MONO % 12.1 % (0.0-10.0); NEUT # 1.5 K/uL (1.8-7.0); NEUT % 49.9 % (50.0-75.0); NRBC % 0.2 % (0.0-0.0); RBC 2.96 Mil/uL (4.40-5.90); RED CELL DISTRIBUTION WIDTH 15.7 % (11.5-14.5)
[2018-10-08 06:29] LABS: INR 1.1; PROTHROMBIN TIME 12.6 Seconds (9.8-13.1)
[2018-10-08 06:38] LABS: ALB/GLOB RATIO 0.5 (1.0-2.1); ALBUMIN 2.1 g/dL (3.5-5.0); ALT/SGPT 29 U/L (21-72); AST/SGOT 62 U/L (17-59); BLOOD UREA NITROGEN 11 mg/dl (9-20); CALCIUM 7.9 mg/dL (8.4-10.2); GFR NON-AFRICAN AMERICAN > 60
[2018-10-08] MEDS: Ferrous Sulfate 300 mg/5 mL Liq UD PO SCH (09:01)
[2018-10-08] MEDS: Potassium & Sodium Phosphate PO SCH (09:02)
[2018-10-08] MEDS: Magnesium Oxide 400 mg Tab UD PO SCH (09:02)
--- NOTE | 2018-10-08 09:06 | CP.PCM.PN ---
Subjective - Date & Time of Evaluation Date of Evaluation: 10/08/18 Time of Evaluation: 09:05 - Subjective Subjective: pt remains as assessed. no f/c, n/v/d. bw noted. for picc and dc today. c/s noted. all consults appriciated. lumbar xr pending Objective - Vital Signs/Intake and Output Vital Signs (last 24 hours): Temp Pulse Resp BP Pulse Ox 97.6 F 81 20 132/85 100 10/08/18 01:39 10/08/18 01:39 10/08/18 01:39 10/08/18 01:39 10/08/18 01:39 - Medications Medications: Current Medications Acetaminophen (Tylenol 325mg Tab) 650 mg PO Q6 PRN PRN Reason: Fever >100.4 F Atorvastatin Calcium (Lipitor) 20 mg PO DAILY [facility] Last Admin: 10/08/18 09:01 Dose: 20 mg Carbidopa/Levodopa (Sinemet) 1 tab PO TID [facility] Last Admin: 10/08/18 09:00 Dose: 1 tab Clopidogrel Bisulfate (Plavix) 75 mg PO DAILY [facility] Last Admin: 10/08/18 09:03 Dose: 75 mg Dextrose (Dextrose 50% Inj) 0 ml IV STAT PRN; Protocol PRN Reason: Hypoglycemia Protocol Last Admin: 10/07/18 06:09 Dose: 67 ml Dextrose (Glutose 15) 0 gm PO ONCE PRN; Protocol PRN Reason: Hypoglycemia Protocol Dimethicone (Proshield Plus Skin Protectant) 1 applic TOP Q8 [facility] Last Admin: 10/08/18 09:00 Dose: 1 applic Escitalopram Oxalate (Lexapro) 10 mg PO DAILY [facility] Last Admin: 10/01/18 08:29 Dose: 10 mg Famotidine (Pepcid) 20 mg PO BID [facility] Last Admin: 10/08/18 09:03 Dose: 20 mg Ferrous Sulfate (Feosol Liq) 300 mg PO BID [facility] Last Admin: 10/08/18 09:01 Dose: 300 mg Glucagon (Glucagen Diagnostic Kit) 0 mg IM STAT PRN; Protocol PRN Reason: Hypoglycemia Protocol Heparin Sodium (Porcine) (Heparin) 5,000 units SC Q8 [facility]; Protocol Last Admin: 10/08/18 09:01 Dose: 5,000 units Hydrochlorothiazide (Microzide) 12.5 mg PO DAILY [facility] Last Admin: 10/08/18 09:02 Dose: 12.5 mg Meropenem 1 gm/ Sodium (Chloride) 100 mls @ 100 mls/hr IVPB Q8 [facility]; Protocol Last Admin: 10/08/18 08:58 Dose: 100 mls/hr Vancomycin HCl 750 mg/ Sodium (Chloride) 250 mls @ 250 mls/hr IVPB Q12H [facility]; Protocol Last Admin: 10/08/18 09:03 Dose: 250 mls/hr Magnesium Oxide (Mag-Ox) 400 mg PO DAILY [facility] Last Admin: 10/08/18 09:02 Dose: 400 mg Potassium Phos/Sodium Phos (Neutra-Phos) 1 pkt PO BID [facility] Last Admin: 10/08/18 09:02 Dose: 1 pkt - Labs Labs: 10/08/18 05:43 10/08/18 05:43 PT 12.6 Seconds (9.8-13.1) 10/08/18 05:43 INR 1.1 10/08/18 05:43 APTT 33.0 Seconds (25.6-37.1) 10/08/18 05:43 - Constitutional Appears: Non-toxic, No Acute Distress, Chronically Ill - Head Exam Head Exam: ATRAUMATIC, NORMAL INSPECTION, NORMOCEPHALIC - Eye Exam Eye Exam: EOMI, Normal appearance, PERRL Pupil Exam: NORMAL ACCOMODATION, PERRL - ENT Exam ENT Exam: Mucous Membranes Moist, Normal Exam - Neck Exam Neck Exam: Full ROM, Normal Inspection. absent: Lymphadenopathy - Respiratory Exam Respiratory Exam: Clear to Ausculation Bilateral, NORMAL BREATHING PATTERN - Cardiovascular Exam Cardiovascular Exam: REGULAR RHYTHM, RRR, +S1, +S2. absent: Murmur - GI/Abdominal Exam GI & Abdominal Exam: Soft, Normal Bowel Sounds. absent: Tenderness - Extremities Exam Extremities Exam: Full ROM, Normal Capillary Refill, Normal Inspection. absent: Joint Swelling, Pedal Edema - Back Exam Back Exam: NORMAL INSPECTION - Neurological Exam Neurological Exam: Abnormal Gait, Alert, Awake, CN II-XII Intact - Psychiatric Exam Psychiatric exam: Normal Affect, Normal Mood - Skin Skin Exam: Dry, Intact, Normal Color, Warm Assessment and Plan (1) Decubital ulcer Status: Acute (2) DVT prophylaxis Status: Acute (3) CVA (cerebral vascular accident) Status: Acute (4) Parkinson disease Status: Acute (5) Septic shock Status: Acute (6) UTI (urinary tract infection) Status: Acute - Assessment and Plan (Free Text) Assessment: (1) Decubital ulcer Assessment & Plan: wound care, anbx, tam rn, wound vac lmbar xr-pending final reslt prior to dc Status: Acute (2) DVT prophylaxis Assessment & Plan: scd and aehose heparin Status: Acute (3) CVA (cerebral vascular accident) Assessment & Plan: sportive care ppx measures deandra Status: Acute (4) Parkinson disease Assessment & Plan: home meds Status: Acute (5) Septic shock Assessment & Plan: improving no f/c bw noted id consults appriciated cont anbx x 6 wks deandra Status: Acute (6) UTI (urinary tract infection) Assessment & Plan: kwan care c/s noted iv anbx x [address] Acute [address] completed, pending result. will follow no distress. nof /c, tlc removed. for dc to [facility]
--- NOTE | 2018-10-08 12:40 | CP.PCM.PN ---
Subjective - Date & Time of Evaluation Date of Evaluation: 10/08/18 Time of Evaluation: 12:39 - Subjective Subjective: no overnight events Objective - Vital Signs/Intake and Output Vital Signs (last 24 hours): Temp Pulse Resp BP Pulse Ox 98 F 77 20 144/88 100 10/08/18 09:37 10/08/18 09:37 10/08/18 09:37 10/08/18 09:37 10/08/18 09:37 - Medications Medications: Current Medications Acetaminophen (Tylenol 325mg Tab) 650 mg PO Q6 PRN PRN Reason: Fever >100.4 F Atorvastatin Calcium (Lipitor) 20 mg PO DAILY [facility] Last Admin: 10/08/18 09:01 Dose: 20 mg Carbidopa/Levodopa (Sinemet) 1 tab PO TID [facility] Last Admin: 10/08/18 09:00 Dose: 1 tab Clopidogrel Bisulfate (Plavix) 75 mg PO DAILY [facility] Last Admin: 10/08/18 09:03 Dose: 75 mg Dextrose (Dextrose 50% Inj) 0 ml IV STAT PRN; Protocol PRN Reason: Hypoglycemia Protocol Last Admin: 10/07/18 06:09 Dose: 67 ml Dextrose (Glutose 15) 0 gm PO ONCE PRN; Protocol PRN Reason: Hypoglycemia Protocol Dimethicone (Proshield Plus Skin Protectant) 1 applic TOP Q8 [facility] Last Admin: 10/08/18 09:00 Dose: 1 applic Escitalopram Oxalate (Lexapro) 10 mg PO DAILY [facility] Last Admin: 10/01/18 08:29 Dose: 10 mg Famotidine (Pepcid) 20 mg PO BID [facility] Last Admin: 10/08/18 09:03 Dose: 20 mg Ferrous Sulfate (Feosol Liq) 300 mg PO BID [facility] Last Admin: 10/08/18 09:01 Dose: 300 mg Glucagon (Glucagen Diagnostic Kit) 0 mg IM STAT PRN; Protocol PRN Reason: Hypoglycemia Protocol Heparin Sodium (Porcine) (Heparin) 5,000 units SC Q8 [facility]; Protocol Last Admin: 10/08/18 09:01 Dose: 5,000 units Hydrochlorothiazide (Microzide) 12.5 mg PO DAILY [facility] Last Admin: 10/08/18 09:02 Dose: 12.5 mg Meropenem 1 gm/ Sodium (Chloride) 100 mls @ 100 mls/hr IVPB Q8 [facility]; Protocol Last Admin: 10/08/18 08:58 Dose: 100 mls/hr Vancomycin HCl 750 mg/ Sodium (Chloride) 250 mls @ 250 mls/hr IVPB Q12H [facility]; Protocol Last Admin: 10/08/18 09:03 Dose: 250 mls/hr Magnesium Oxide (Mag-Ox) 400 mg PO DAILY [facility] Last Admin: 10/08/18 09:02 Dose: 400 mg Potassium Phos/Sodium Phos (Neutra-Phos) 1 pkt PO BID [facility] Last Admin: 10/08/18 09:02 Dose: 1 pkt - Labs Labs: 10/08/18 05:43 10/08/18 05:43 PT 12.6 Seconds (9.8-13.1) 10/08/18 05:43 INR 1.1 10/08/18 05:43 APTT 33.0 Seconds (25.6-37.1) 10/08/18 05:43 - Head Exam Head Exam: NORMOCEPHALIC - Neck Exam Neck Exam: Normal Inspection - Respiratory Exam Respiratory Exam: Clear to Ausculation Bilateral, NORMAL BREATHING PATTERN - Cardiovascular Exam Cardiovascular Exam: REGULAR RHYTHM - GI/Abdominal Exam GI & Abdominal Exam: Soft, Normal Bowel Sounds Assessment and Plan - Assessment and Plan (Free Text) Assessment: 78 yo male with resolving sepsis doing well dc planning
--- NOTE | 2018-10-08 12:52 | RAD ---
Date of service: 10/08/2018 HISTORY: PICC LINE INSERTION VERIFICATION COMPARISON: 09/29/2018 FINDINGS: LUNGS: No interval consolidation. Left hemidiaphragm is asymmetrically elevated. There is perceived blunting of left costophrenic angle which is elevated; possible minimal left pleural fluid and/or summation of soft tissues. PLEURA: Possible interval small left pleural effusion (versus summation of soft tissues.No pneumothorax seen. CARDIOVASCULAR: There is presence of aortic atherosclerotic calcification on x-ray. Borderline cardiomegaly. No significant appearing pulmonary venous congestion. Interval right PICC line insertion tip in superior vena cava. Prior left internal jugular vein central line tip in sys superior vena cava more proximal than the PICC line OSSEOUS STRUCTURES: Thoracic spondylosis. Bilateral shoulder arthrosis. VISUALIZED UPPER ABDOMEN: Normal. OTHER FINDINGS: None. IMPRESSION: Interval insertion right PICC line tip in superior vena cava. Central line similar. No pneumothorax seen. Interval blunting of the elevated left costophrenic angle here small left pleural effusion versus summation of soft tissues are some considerations.
--- NOTE | 2018-10-08 13:05 | RAD ---
Date of service: 10/06/2018 PROCEDURE: Radiographs of the Lumbar Spine. HISTORY: sacral decub stage 4 COMPARISON: No prior. FINDINGS: BONES: Straightening of the normal lumbar lordosis Minimal endplate ridging noted. Minimal degenerative type wedging of the L4 vertebral body no listhesis. No vertebral body fracture. Bilateral L5-S1 and L4-5 facet hypertrophic arthrosis. Generalized osteopenia noted. SI joints appear unremarkable. On a frontal view series 562, image 3 labeled "CHINESE" but appearing more frontal in projection is a right sided vague hyperdensity is probably artifactual as it is not reproduced on the 2nd frontal image AP image include partially including this area. DISC SPACES: L3-4 L4-5 and L5-S1 disc space narrowing. AP spinal canal appear shallow at L5 level. OTHER FINDINGS: Left hemipelvic phleboliths. IMPRESSION: Degenerative spondylosis and degenerative disc disease. Degenerative facet hypertrophic arthrosis. No vertebral body suspect fracture seen. Other findings as above.
--- NOTE | 2018-10-08 13:45 | CP.PCM.PN ---
Subjective - Date & Time of Evaluation Date of Evaluation: 10/08/18 Time of Evaluation: 07:00 - Subjective Subjective: iv rx in progress for CT sacrum cont iv rx Objective - Vital Signs/Intake and Output Vital Signs (last 24 hours): Temp Pulse Resp BP Pulse Ox 98 F 77 20 144/88 100 10/08/18 09:37 10/08/18 09:37 10/08/18 09:37 10/08/18 09:37 10/08/18 09:37 - Medications Medications: Current Medications Acetaminophen (Tylenol 325mg Tab) 650 mg PO Q6 PRN PRN Reason: Fever >100.4 F Atorvastatin Calcium (Lipitor) 20 mg PO DAILY [facility] Last Admin: 10/08/18 09:01 Dose: 20 mg Carbidopa/Levodopa (Sinemet) 1 tab PO TID [facility] Last Admin: 10/08/18 09:00 Dose: 1 tab Clopidogrel Bisulfate (Plavix) 75 mg PO DAILY [facility] Last Admin: 10/08/18 09:03 Dose: 75 mg Dextrose (Dextrose 50% Inj) 0 ml IV STAT PRN; Protocol PRN Reason: Hypoglycemia Protocol Last Admin: 10/07/18 06:09 Dose: 67 ml Dextrose (Glutose 15) 0 gm PO ONCE PRN; Protocol PRN Reason: Hypoglycemia Protocol Dimethicone (Proshield Plus Skin Protectant) 1 applic TOP Q8 [facility] Last Admin: 10/08/18 09:00 Dose: 1 applic Escitalopram Oxalate (Lexapro) 10 mg PO DAILY [facility] Last Admin: 10/01/18 08:29 Dose: 10 mg Famotidine (Pepcid) 20 mg PO BID [facility] Last Admin: 10/08/18 09:03 Dose: 20 mg Ferrous Sulfate (Feosol Liq) 300 mg PO BID [facility] Last Admin: 10/08/18 09:01 Dose: 300 mg Glucagon (Glucagen Diagnostic Kit) 0 mg IM STAT PRN; Protocol PRN Reason: Hypoglycemia Protocol Heparin Sodium (Porcine) (Heparin) 5,000 units SC Q8 [facility]; Protocol Last Admin: 10/08/18 09:01 Dose: 5,000 units Hydrochlorothiazide (Microzide) 12.5 mg PO DAILY [facility] Last Admin: 10/08/18 09:02 Dose: 12.5 mg Meropenem 1 gm/ Sodium (Chloride) 100 mls @ 100 mls/hr IVPB Q8 [facility]; Protocol Last Admin: 10/08/18 08:58 Dose: 100 mls/hr Vancomycin HCl 750 mg/ Sodium (Chloride) 250 mls @ 250 mls/hr IVPB Q12H [facility]; Protocol Last Admin: 10/08/18 09:03 Dose: 250 mls/hr Magnesium Oxide (Mag-Ox) 400 mg PO DAILY [facility] Last Admin: 10/08/18 09:02 Dose: 400 mg Potassium Phos/Sodium Phos (Neutra-Phos) 1 pkt PO BID [facility] Last Admin: 10/08/18 09:02 Dose: 1 pkt - Labs Labs: 10/08/18 05:43 10/08/18 05:43 PT 12.6 Seconds (9.8-13.1) 10/08/18 05:43 INR 1.1 10/08/18 05:43 APTT 33.0 Seconds (25.6-37.1) 10/08/18 05:43 Assessment and Plan (1) Decubital ulcer Status: Acute (2) Fever in adult Status: Acute (3) Sepsis Status: Acute (4) Septic shock Status: Acute (5) Severe sepsis Status: Acute (6) UTI (urinary tract infection) Status: Acute
--- NOTE | 2018-10-08 13:49 | CP.PCM.PCO ---
Assessment/Plan - Assessment/Plan Assessment (Free Text): Pt in bed stable. TLC to left IJ d/c'd with tip intact. Pressure dressing applied, no bleeding noted, pt tolerated well. Will monitor for bleeding over next 30 mins. Pt remains stable, RN aware - Consults Consult Orders: Consultations
--- NOTE | 2018-10-08 15:23 | CT ---
Date of service: 10/08/2018 PROCEDURE: CT Lumbar Spine without contrast HISTORY: sacral decub COMPARISON: None available. TECHNIQUE: Axial computed tomography images were obtained of the lumbar spine without the use of intravenous contrast. Coronal and sagittal reformatted images were created and reviewed. Radiation dose: Total exam DLP = 1164.54 mGy-cm. This CT exam was performed using one or more of the following dose reduction techniques: Automated exposure control, adjustment of the mA and/or kV according to patient size, and/or use of iterative reconstruction technique. FINDINGS: VERTEBRAE: There is mild degenerative retrolisthesis of L4 on L5 and L5 on S1. There is straightening of the lumbar spine with loss of normal lumbar lordosis. There is diffuse bone demineralization. There is no acute fracture or bone destruction. There is no spondylolysis. DISCS/SPINAL CANAL/NEURAL FORAMINA: L1-2: Unremarkable. L2-3: Mild posterior disc bulge and mild ligamentum flavum infolding with mild spinal canal stenosis. Moderate bilateral facet arthropathy contribute to mild neural foraminal narrowing. L3-4: Diffuse posterior disc bulge and mild ligamentum flavum infolding with mild spinal canal stenosis. Mild bilateral facet arthropathy contribute to moderate neural foraminal narrowing. L4-5: Diffuse posterior disc bulge in conjunction with mild ligamentum flavum infolding result in mild spinal canal stenosis. Moderate bilateral facet arthropathy contribute to severe neural foraminal narrowing. L5-S1: Diffuse posterior disc bulge and mild ligamentum flavum infolding with mild spinal canal stenosis. Mild right and moderate left facet arthropathy contribute to moderate right and severe left neural foraminal narrowing. PARASPINAL SOFT TISSUES: The paraspinous soft tissues are normal there is a large right paramedian soft tissue defect extending to the tip of the sacrum however there is no evidence for bone erosion or bone destruction. The entire soft tissue defect is not included on this exam. There is severe circumferential mural thickening of the urinary bladder wall. Imaged portion of the retroperitoneum demonstrate simple cysts in the right kidney. There is severe diffuse anasarca. 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 OTHER FINDINGS: None. IMPRESSION: 1. Large right paramedian sacral decubitus ulcer, the entire ulcer is not imaged on this examination however extends to the tip of the sacrum without definite CT evidence for bone destruction or osteomyelitis. 2. Multilevel degenerative disc disease, worse at L4-5 with mild spinal canal stenosis and severe neural foraminal narrowing. 3. No acute fracture or spondylolysis.
[2018-10-08 16:17] VITALS: BP 135/98; PULSE 85; TEMP 97.1
--- NOTE | 2018-10-09 08:42 | CP.PCM.DIS ---
Provider - Provider Date of Admission: 09/29/18 08:12 Attending physician: Chris Wiggins MD Consults: 09/29/18 08:57 Critical Care Consult Stat Comment: Consulting Provider: Nolberto Sibley Consulting Physician: Nolberto Sibley Reason for Consult: septic [place] 09/29/18 11:00 Gastroenterology Consult Routine Comment: Consulting Provider: Ten Young Consulting Physician: Ten Young Reason for Consult: elev lft, sepsis Infectious Disease Consult Routine Comment: Consulting Provider: Vahe David Consulting Physician: Vahe David Reason for Consult: sepsis 09/29/18 12:40 Wound Care [Nursing Referral for Wound Care] Routine Comment: Physician Instructions: Reason For Exam: 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 Uses [facility], Reason for Referral: Discharge Planning Nursing Referral for Wound Care Routine Comment: Physician Instructions: Reason For Exam: Sacral Decubitus ulcer. POA Pastoral Care Referral Routine Comment: Physician Instructions: Reason For Exam: requests visit from [facility] 09/29/18 19:26 Nursing Referral for Palliative Care Routine Comment: Consulting Provider: Physician Instructions: Reason For Exam: palliative care score of none Time Spent in preparation of Discharge (in minutes): 15 Diagnosis - Discharge Diagnosis (1) Decubital ulcer Status: Acute Priority: High (2) DVT prophylaxis Status: Acute (3) CVA (cerebral vascular accident) Status: Acute (4) Parkinson disease Status: Acute (5) Septic shock Status: Acute Priority: High (6) UTI (urinary tract infection) Status: Acute Priority: High Hospital Course - Lab Results Lab Results: Micro Results 10/04/18 04:45 Blood-Venous Blood Culture - Final NO GROWTH AFTER 5 DAYS 10/04/18 04:45 Blood-Venous Gram Stain - Final TEST NOT PERFORMED 10/04/18 05:00 Blood-Venous Blood Culture - Final NO GROWTH AFTER 5 DAYS 10/04/18 05:00 Blood-Venous Gram Stain - Final TEST NOT PERFORMED 10/03/18 05:30 Blood-Thru Central Line Blood Culture - Final NO GROWTH AFTER 5 DAYS 10/03/18 05:30 Blood-Thru Central Line Gram Stain - Final TEST NOT PERFORMED 10/03/18 05:00 Blood-Thru Central Line Blood Culture - Final NO GROWTH AFTER 5 DAYS 10/03/18 05:00 Blood-Thru Central Line Gram Stain - Final TEST NOT PERFORMED 10/05/18 16:11 Naris MRSA Culture (Admit) - Final MRSA NOT DETECTED 09/29/18 08:20 Blood Blood Culture - Final Enterobacter Cloacae 09/29/18 08:20 Blood Gram Stain - Final 09/29/18 07:30 Blood Blood Culture - Final Enterobacter Cloacae Ssp Cloac 09/29/18 07:30 Blood Gram Stain - Final 09/29/18 08:20 Urine,Catheterized Urine Culture - Final Enterobacter Cloacae Ssp Cloac 09/29/18 18:48 Stool Ova and Parasite Concentrate Exam - Final 09/29/18 08:10 Naris MRSA Culture (Admit) - Final MRSA NOT DETECTED 09/29/18 08:30 Coccyx Gram Stain - Final 09/29/18 08:30 Coccyx Wound Culture - Final Corynebacterium Species Most Recent Lab Values WBC 3.0 K/uL (4.8-10.8) L 10/08/18 05:43 RBC 2.96 Mil/uL (4.40-5.90) L 10/08/18 05:43 Hgb 8.6 g/dL (12.0-18.0) L 10/08/18 05:43 Hct 26.2 % (35.0-51.0) L 10/08/18 05:43 MCV 88.6 fl (80.0-94.0) 10/08/18 05:43 MCH 29.0 pg (27.0-31.0) 10/08/18 05:43 MCHC 32.8 g/dL (33.0-37.0) L 10/08/18 05:43 RDW 15.7 % (11.5-14.5) H 10/08/18 05:43 Plt Count 352 K/uL (130-400) 10/08/18 05:43 MPV 9.3 fl (7.2-11.7) 10/08/18 05:43 Neut % (Auto) 49.9 % (50.0-75.0) L 10/08/18 05:43 Lymph % (Auto) 33.6 % (20.0-40.0) 10/08/18 05:43 Wake % (Auto) 12.1 % (0.0-10.0) H 10/08/18 05:43 Eos % (Auto) 3.7 % (0.0-4.0) 10/08/18 05:43 Baso % (Auto) 0.7 % (0.0-2.0) 10/08/18 05:43 Neut # (Auto) 1.5 K/uL (1.8-7.0) L 10/08/18 05:43 Lymph # (Auto) 1.0 K/uL (1.0-4.3) 10/08/18 05:43 Wake # (Auto) 0.4 K/uL (0.0-0.8) 10/08/18 05:43 Eos # (Auto) 0.1 K/uL (0.0-0.7) 10/08/18 05:43 Baso # (Auto) 0.0 K/uL (0.0-0.2) 10/08/18 05:43 Neutrophils % (Manual) 82 % (42-75) H 09/30/18 11:50 Band Neutrophils % 4 % (0-2) H 09/30/18 11:50 Lymphocytes % (Manual) 6 % (20-50) L 09/30/18 11:50 Monocytes % (Manual) 8 % (0-10) 09/30/18 11:50 Myelocytes % 1 % (0-0) H 09/29/18 07:30 Toxic Granulation Present 09/30/18 11:50 Platelet Estimate Normal (NORMAL) 09/30/18 11:50 Plt Clumps, EDTA Present 09/29/18 07:30 Giant Platelets Present 09/29/18 07:30 Polychromasia Slight 09/29/18 07:30 Hypochromasia (manual) Slight 09/30/18 11:50 Anisocytosis (manual) Slight 09/30/18 11:50 Ovalocytes Slight 09/30/18 11:50 PT 12.6 Seconds (9.8-13.1) 10/08/18 05:43 INR 1.1 10/08/18 05:43 APTT 33.0 Seconds (25.6-37.1) 10/08/18 05:43 pCO2 17 mm/Hg (35-45) L* 09/29/18 07:27 pO2 43 mm/Hg (30-55) 10/01/18 12:25 HCO3 17.2 mmol/L (21-28) L 09/29/18 07:27 ABG pH 7.46 (7.35-7.45) H 09/29/18 07:27 ABG Total CO2 12.6 mmol/L (22-28) L 09/29/18 07:27 ABG O2 Saturation 99.2 % (95-98) H 09/29/18 07:27 ABG O2 Content 13.2 ML/dL (15-23) L 09/29/18 07:27 ABG Base Excess -9.9 mmol/L (-2.0-3.0) L 09/29/18 07:27 ABG Hemoglobin 9.6 g/dL (11.7-17.4) L 09/29/18 07:27 ABG Carboxyhemoglobin 0.6 % (0.5-1.5) 09/29/18 07:27 POC ABG HHb (Measured) 0.8 % (0.0-5.0) 09/29/18 07:27 ABG Methemoglobin 2.2 % (0.0-3.0) 09/29/18 07:27 ABG O2 Capacity 13.3 mL/dL (16-24) L 09/29/18 07:27 Flo Test Yes 09/29/18 07:27 VBG pH 7.38 (7.32-7.43) 10/01/18 12:25 VBG pCO2 26 mmHg (40-60) L 10/01/18 12:25 VBG HCO3 17.9 mmol/L 10/01/18 12:25 VBG Total CO2 16.2 mmol/L (22-28) L 10/01/18 12:25 VBG O2 Sat (Calc) 82.3 % (40-65) H 10/01/18 12:25 VBG Base Excess -8.7 mmol/L (0.0-2.0) L 10/01/18 12:25 VBG Potassium 2.9 mmol/L (3.6-5.2) L 10/01/18 12:25 A-a O2 Difference 99.0 mm/Hg 09/29/18 07:27 Hgb O2 Saturation 96.4 % (95.0-98.0) 09/29/18 07:27 Sodium 148.0 mmol/L (132-148) 10/01/18 12:25 Chloride 129.0 mmol/L (98-107) H 10/01/18 12:25 Glucose 130 mg/dL (75-110) H 10/01/18 12:25 Lactate 1.2 mmol/L (0.7-2.1) 10/01/18 12:25 FiO2 28.0 % 10/01/18 12:25 Blood Gas Comments Lac=5.3 09/29/18 13:31 Crit Value Called To [email or web address] 09/29/18 13:31 Crit Value Called By 22 09/29/18 13:31 Crit Value Read Back Y 09/29/18 13:31 Blood Gas Notified Time 1338 09/29/18 13:31 Sodium 137 mmol/l (132-148) 10/08/18 05:43 Potassium 4.1 MMOL/L (3.6-5.0) 10/08/18 05:43 Chloride 109 mmol/L (98-107) H 10/08/18 05:43 Carbon Dioxide 26 mmol/L (22-30) 10/08/18 05:43 Anion Gap 6 (10-20) L 10/08/18 05:43 BUN 11 mg/dl (9-20) 10/08/18 05:43 Creatinine 0.6 mg/dl (0.8-1.5) L 10/08/18 05:43 Est GFR ( Amer) > 60 10/08/18 05:43 Est GFR (Non-Af Amer) > 60 10/08/18 05:43 POC Glucose (mg/dL) 87 mg/dL (65-110) 10/08/18 16:26 Random Glucose 66 mg/dL (75-110) L 10/08/18 05:43 Lactic Acid 1.3 mmol/L (0.7-2.1) 10/02/18 04:45 Calcium 7.9 mg/dL (8.4-10.2) L 10/08/18 05:43 Phosphorus 3.2 mg/dl (2.5-4.5) 10/08/18 05:43 Magnesium 1.7 MG/DL (1.6-2.3) 10/08/18 05:43 Iron 20 ug/dL (49-181) L 10/06/18 06:00 TIBC 154 ug/dL (250-450) L 10/06/18 06:00 % Saturation 13 % (20-55) L 10/06/18 06:00 Transferrin 85.53 mg/dL (206-381) L 10/06/18 06:00 Ferritin 150.0 ng/Ml (17.9-464) 10/06/18 06:00 Total Bilirubin 0.2 mg/dl (0.2-1.3) 10/08/18 05:43 Direct Bilirubin 0.4 mg/ml (0.0-0.4) 09/30/18 05:00 AST 62 U/L (17-59) H 10/08/18 05:43 ALT 29 U/L (21-72) 10/08/18 05:43 Alkaline Phosphatase 168 U/L (38-126) H 10/08/18 05:43 Ammonia < 9 umol/L (9-33) L 10/01/18 13:21 Total Protein 6.0 G/DL (6.3-8.2) L 10/08/18 05:43 Albumin 2.1 g/dL (3.5-5.0) L 10/08/18 05:43 Globulin 3.9 gm/dL (2.2-3.9) 10/08/18 05:43 Albumin/Globulin Ratio 0.5 (1.0-2.1) L 10/08/18 05:43 Vitamin B12 517 pg/mL (239-931) 10/06/18 06:00 Folate 6.9 ng/mL 10/06/18 06:00 Procalcitonin 118.70 NG/ML (0.19-0.49) H 10/02/18 04:45 Venous Blood Potassium 2.9 mmol/L (3.6-5.2) L 10/01/18 12:25 Urine Color Karen (YELLOW) 09/29/18 08:20 Urine Clarity Turbid (Clear) 09/29/18 08:20 Urine pH 7.0 (5.0-8.0) 09/29/18 08:20 Ur Specific Equality 1.017 (1.003-1.030) 09/29/18 08:20 Urine Protein 30 mg/dL (NEGATIVE) 09/29/18 08:20 Urine Glucose (UA) Neg mg/dL (NEGATIVE) 09/29/18 08:20 Urine Ketones Negative mg/dL (NEGATIVE) 09/29/18 08:20 Urine Blood Moderate (NEGATIVE) 09/29/18 08:20 Urine Nitrate Negative (NEGATIVE) 09/29/18 08:20 Urine Bilirubin Negative (NEGATIVE) 09/29/18 08:20 Urine Urobilinogen 0.2-1.0 mg/dL (0.2-1.0) 09/29/18 08:20 Ur Leukocyte Esterase Large Nomi/uL (Negative) 09/29/18 08:20 Urine RBC (Auto) 240 /hpf (0-3) H 09/29/18 08:20 Urine Microscopic WBC 1728 /hpf (0-5) H 09/29/18 08:20 Urine Bacteria Many (<OCC) H 09/29/18 08:20 Vancomycin Trough 19.1 ug/mL (5.0-10.0) H 10/04/18 04:45 C. difficile Ag & Toxin Negative (NEGATIVE) 09/29/18 18:31 Hepatitis A IgM Ab Negative (NEGATIVE) 09/29/18 17:28 Hep Bs Antigen Negative (NEGATIVE) 09/29/18 17:28 Hep B Core IgM Ab Negative (NEGATIVE) 09/29/18 17:28 Hepatitis C Antibody Negative (NEGATIVE) 09/29/18 17:28 Influenza Typ A,B (EIA) Negative for flu a/b (NEGATIVE) 09/29/18 08:20 - Hospital Course Hospital Course: pt admitted for uti and septic shock. 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 wound care completed. urine cath change dnad removed. all consults appriciated. anbx therapie. picc placed. Discharge Exam - Head Exam Head Exam: ATRAUMATIC, NORMAL INSPECTION, NORMOCEPHALIC Discharge Plan - Discharge Medications Prescriptions: Meropenem IV 1 gm in NS [Merrem IV 1 gm Premix] 1 gm IVPB Q8 #126 bag - Follow Up Plan Condition: CRITICAL Disposition: TRANSF TO SNF Instructions: Pressure Sores (DC), Sepsis, Adult (DC) Additional Instructions: final dx-uti, septic shock, stage 4 decub stable, tlc removed, picc placed, cleared for deandra. lumbar ct spine. f/u in [place] [facility]/ [facility] Referrals: Ten Young MD, PhD [Staff Provider] - Vahe David MD [Staff Provider] - Dimas Downey MD [Staff Provider] -
== END 2018-10-08 18:12 | DRG 698 ==
LOC: H.ER 06:27 → H.ERHOLD 08:12 → H.ICU/CCU 10:23 → H.MEDSURG1 10-05 12:50
PROVIDERS: ADMIT Family Medicine; ATTEND Family Medicine
PROC: 05HN33Z Insertion of Infusion Device into Left Internal Jugular Vein, Percutaneous Approach (ICD-10-PCS; 2018-09-29)
PROC: 0DH67UZ Insertion of Feeding Device into Stomach, Via Natural or Artificial Opening (ICD-10-PCS; principal; 2018-09-30)
PROC: 3E0G76Z Introduction of Nutritional Substance into Upper GI, Via Natural or Artificial Opening (ICD-10-PCS; 2018-09-30)
PROC: 3E0234Z Introduction of Serum, Toxoid and Vaccine into Muscle, Percutaneous Approach (ICD-10-PCS; 2018-10-01)
PROC: 02HV33Z Insertion of Infusion Device into Superior Vena Cava, Percutaneous Approach (ICD-10-PCS; 2018-10-08)
DX: T83.511A Infection and inflammatory reaction due to indwelling urethral catheter, initial encounter (principal); L89.154 Pressure ulcer of sacral region, stage 4; R65.21 Severe sepsis with septic shock; G92 Toxic encephalopathy; A41.59 Other Gram-negative sepsis; I69.354 Hemiplegia and hemiparesis following cerebral infarction affecting left non-dominant side; E87.2 Acidosis; N39.0 Urinary tract infection, site not specified; G20 Parkinson's disease; F02.80 Dementia in other diseases classified elsewhere, unspecified severity, without behavioral disturbance, psychotic disturbance, mood disturbance, and anxiety; Z74.01 Bed confinement status; Z79.02 Long term (current) use of antithrombotics/antiplatelets; I69.320 Aphasia following cerebral infarction; Z88.6 Allergy status to analgesic agent; Z23 Encounter for immunization; I10 Essential (primary) hypertension; E78.5 Hyperlipidemia, unspecified; F32.9 Major depressive disorder, single episode, unspecified; E86.0 Dehydration; R79.89 Other specified abnormal findings of blood chemistry; D63.8 Anemia in other chronic diseases classified elsewhere; Y84.6 Urinary catheterization as the cause of abnormal reaction of the patient, or of later complication, without mention of misadventure at the time of the procedure